=== PATIENT | male | born 1960 | race Caucasian/White ===

== ENCOUNTER → 2016-08-15 | Outpatient (CLI) | payer OTHER ==
[~2016-08-15] VITALS: Ht 160 cm; Wt 79.4 kg
[~2016-08-15] MED LIST: ATOR1TAB21 PO; BUPR300T34 PO; CETI10TA PO; CIPR-250 PO; CIPR500T89 PO; CLON0.5T PO; CRES20TA PO; CYMB60CA3 PO; ESCI10TA2 PO; GABA-283 PO; GABA300C2 PO; IBUP200C PO; JANU100T PO; LIDOCAINE 2% INJ 100 MG/5 ML SDV (FOR ANES.) As Ordered ONE; METF500T PO; MONT10TA2 PO; NORC5TAB PO; NS 1,000 ML IV SCH; OMEP10CASR PO; OMEP20CA3 PO; OXYC-208 PO; PROPOFOL 200 MG/20 ML VIAL As Ordered ONE; PYRI100T PO; SING5CHW PO; SINGULAIR PO; naproxen OR
--- NOTE | 2016-08-15 11:25 | ROOR ---
Patient Name: Herber Ruelas Procedure Date: 08/15/2016 11:12 AM Date of : 1960 Age: 56 Room: [facility] Gender: Male Note Status: Finalized Procedure: Upper GI endoscopy Indications: Heartburn Providers: Duane Mensah MD Referring MD: TRISTEN AGUILAR JR, MD Requesting Provider: Medicines: Monitored Anesthesia Care Complications: No immediate complications. Procedure: Pre-Anesthesia Assessment: - The heart rate, respiratory rate, oxygen saturations, blood pressure, adequacy of pulmonary ventilation, and response to care were monitored throughout the procedure. The Endoscope was introduced through the mouth, and advanced to the second part of duodenum. The upper GI endoscopy was accomplished without difficulty. The patient tolerated the procedure well. Findings: The Z-line was irregular and was found 40 cm from the incisors. No other significant abnormalities were identified in a careful examination of the stomach. The exam of the duodenum was otherwise normal. Impression: - Z-line irregular, 40 cm from the incisors. - No specimens collected. - The examination was otherwise normal. Recommendation: - Patient has a contact number available for emergencies. The signs and symptoms of potential delayed complications were discussed with the patient. Return to normal activities tomorrow. Written discharge instructions were provided to the patient. - Discharge patient to home. - Follow an antireflux regimen. - Continue present medications. - Return to referring physician. - The findings and recommendations were discussed with the patient's family. Duane Mensah MD Duane Mensah MD 08/15/2016 11:25:56 AM This report has been signed electronically. Number of Addenda: 0 Note Initiated On: 08/15/2016 11:12 AM Estimated Blood Loss: Estimated blood loss: none.
--- NOTE | 2016-08-15 11:52 | ROOR ---
Patient Name: Herber Ruelas Procedure Date: 08/15/2016 11:13 AM Date of : 1960 Age: 56 Room: [facility] Gender: Male Note Status: Finalized Procedure: Colonoscopy to Cecum + Hot/Cold Snare Polypectomy + Hemoclips. Indications: Change in bowel habits Providers: Duane Mensah MD Referring MD: Bridget Palomo MD, TRISTEN AGUILAR JR, MD Requesting Provider: Medicines: Monitored Anesthesia Care Complications: No immediate complications. Procedure: Pre-Anesthesia Assessment: - The heart rate, respiratory rate, oxygen saturations, blood pressure, adequacy of pulmonary ventilation, and response to care were monitored throughout the procedure. The Colonoscope was introduced through the anus and advanced to the cecum, identified by appendiceal orifice and ileocecal valve. The colonoscopy was performed without difficulty. The patient tolerated the procedure well. The quality of the bowel preparation was excellent. Findings: The perianal and digital rectal examinations were normal. Non-bleeding internal hemorrhoids were found during retroflexion. The hemorrhoids were small and Grade I (internal hemorrhoids that do not prolapse). A large polyp was found in the rectum. The polyp was sessile. The polyp was removed with a hot snare. Resection was complete, but the polyp tissue was not retrieved. To prevent bleeding after the polypectomy, two hemostatic clips were successfully placed (MR conditional). There was no bleeding at the end of the procedure. Two sessile polyps were found at 10 cm proximal to the anus. The polyps were small in size. These polyps were removed with a cold snare. Resection and retrieval were complete. A small polyp was found in the mid ascending colon. The polyp was sessile. The polyp was removed with a cold snare. Resection was complete, but the polyp tissue was not retrieved. The exam was otherwise without abnormality on direct and retroflexion views. Impression: - Non-bleeding internal hemorrhoids. - One large polyp in the rectum, removed with a hot snare. Complete resection. Polyp tissue not retrieved. Clips (MR conditional) were placed. - Two small polyps at 10 cm proximal to the anus, removed with a cold snare. Resected and retrieved. - One small polyp in the mid ascending colon, removed with a cold snare. Complete resection. Polyp tissue not retrieved. - The examination was otherwise normal on direct and retroflexion views. Recommendation: - Patient has a contact number available for emergencies. The signs and symptoms of potential delayed complications were discussed with the patient. Return to normal activities tomorrow. Written discharge instructions were provided to the patient. - High fiber diet. - Discharge patient to home. - Continue present medications. - Await pathology results. - Repeat colonoscopy in 3 years for surveillance based on pathology results. - Return to referring physician. - The findings and recommendations were discussed with the patient's family. Duane Mensah MD Duane Mensah MD 08/15/2016 11:52:18 AM This report has been signed electronically. Number of Addenda: 0 Note Initiated On: 08/15/2016 11:13 AM Estimated Blood Loss: Estimated blood loss: none.
[2016-08-15 12:15] VITALS: BP 142/87
== END | disposition home or self-care (01) ==
LOC: M OPP 10:18
PROVIDERS: ATTEND Internal Medicine Gastroenterology
DX: K64.0 First degree hemorrhoids (principal); K62.1 Rectal polyp; D12.2 Benign neoplasm of ascending colon; R12 Heartburn; K22.8 Other specified diseases of esophagus; E78.00 Pure hypercholesterolemia, unspecified; E11.9 Type 2 diabetes mellitus without complications; F33.9 Major depressive disorder, recurrent, unspecified; F41.9 Anxiety disorder, unspecified; G98.8 Other disorders of nervous system; F17.200 Nicotine dependence, unspecified, uncomplicated; F17.228 Nicotine dependence, chewing tobacco, with other nicotine-induced disorders; Z79.899 Other long term (current) drug therapy; Z79.84 Long term (current) use of oral hypoglycemic drugs; Z88.8 Allergy status to other drugs, medicaments and biological substances; Z88.0 Allergy status to penicillin; Z88.2 Allergy status to sulfonamides; Z91.018 Allergy to other foods

== ENCOUNTER → 2016-10-19 | Day surgery (SDC) | payer OTHER ==
[~2016-10-19] VITALS: Ht 160 cm; Wt 77.1 kg
[~2016-10-19] MED LIST changes: +ACETAMINOPHEN 325 MG TAB PO PRN; +ACETYLCHOLINE OPHTH SOLN 1% 2ML (MIOCHOL-E) As Ordered ONE; +BALANCED SALT IRRIGATION SOLUTION 500ML BAG (FOR OR EYE MACHINE) As Ordered ONE; +CYCLOPENTOLATE 2% OPHTH SOLN 2ML BTL OD ONE; +D5W/0.2% SODIUM CHLORIDE 250 ML IV ONE; +HEALON DUET (HEALON 10MG/ML 0.55ML & HEALON ENDOCOAT 30MG/ML 0.85ML) As Ordered ONE; +KETOROLAC 0.5% OPHTH SOLN OD ONE; +LIDOCAINE 1% SDV 5 ML VIAL As Ordered ONE; -LIDOCAINE 2% INJ 100 MG/5 ML SDV (FOR ANES.) As Ordered ONE; +LIDOCAINE 4% INJ 5 ML AMP OU ONE; +METF1000 PO; +MIDAZOLAM INJ 2 MG/2 ML VIAL (J2250) As Ordered ONE; +NORC1TAB4 PO; -NORC5TAB PO; -NS 1,000 ML IV SCH; +OFLOXACIN 0.3 % (OCUFLOX) OPTH SOL 5ML OD ONE; +PHENYLEPHRINE 2.5% OPHTH SOL 2ML OD ONE; +POVIDONE-IODINE 5% OPHTH PREP SOL 30ML As Ordered ONE; +PROPARACAINE 0.5% OPHTH SOL 15ML OD PRN; -PROPOFOL 200 MG/20 ML VIAL As Ordered ONE; +TRIMETHOBENZAMIDE 300 MG CAP PO PRN; +TROPICAMIDE 1% OPHTH SOLN 2ML OD ONE; +fentaNYL 100 MCG/2 ML INJECTION (J3010) As Ordered ONE
[2016-10-19 13:45] VITALS: BP 123/82
--- NOTE | 2016-10-20 12:36 | RO ---
DATE OF PROCEDURE: 10/19/2016 PREOPERATIVE DIAGNOSIS: Age-related nuclear cataract right eye. POSTOPERATIVE DIAGNOSIS: Age-related nuclear cataract right eye. PROCEDURE PERFORMED: Femtosecond cataract extraction with posterior chamber intraocular lens implantation right eye. Lens used was [id number], 22.0 diopter. SURGEON: Re Boyer MD TECHNOLOGY SERVICES MANAGER: ANESTHESIA: Local monitored anesthesia care (MAC). DESCRIPTION OF PROCEDURE: The patient was brought to the operating room and put under the femtosecond laser. A lid speculum was placed between the lids, and the laser was lowered on. Docking was achieved with good suction. The laser procedure was performed with no difficulty. The laser was then removed from the eye, and the lid speculum was removed. The laser was moved over to the operating microscope and prepped and draped in the usual fashion. A lid speculum was placed between the lids. The eye was fixated. The side port incision was opened up with a spatula. 1% non-preservative lidocaine was instilled; then, viscoelastic was instilled. The main incision was then opened with the spatula. The capsulorrhexis was removed from the eye with the Utrata forceps. The lens was then hydrodissected, and a phacoemulsification unit was used to make a groove in the nucleus and one meridian. The nucleus was cracked into four quadrants, and then each quadrant was removed with the phacoemulsification unit. Any remaining cortex was removed with the irrigation and aspiration (I and A) unit. The capsular bag was refilled with viscoelastic. A posterior chamber intraocular lens was placed in the capsular bag. The remaining viscoelastic was removed. The wound was hydrated. Miochol and cefuroxime were instilled. The wound was watertight. The patient tolerated the procedure well and went to the recovery room in stable condition. Edited: [facility] 10/20/2016 [id number]
== END | disposition home or self-care (01) ==
LOC: M SDC 11:25
PROVIDERS: ATTEND Ophthalmology
DX: H25.11 Age-related nuclear cataract, right eye (principal); I10 Essential (primary) hypertension; E11.42 Type 2 diabetes mellitus with diabetic polyneuropathy; F90.0 Attention-deficit hyperactivity disorder, predominantly inattentive type; G60.3 Idiopathic progressive neuropathy; F34.1 Dysthymic disorder; F41.9 Anxiety disorder, unspecified; K57.32 Diverticulitis of large intestine without perforation or abscess without bleeding; R29.898 Other symptoms and signs involving the musculoskeletal system; R06.02 Shortness of breath; N40.0 Benign prostatic hyperplasia without lower urinary tract symptoms; K21.9 Gastro-esophageal reflux disease without esophagitis; E78.00 Pure hypercholesterolemia, unspecified; F17.290 Nicotine dependence, other tobacco product, uncomplicated; J30.2 Other seasonal allergic rhinitis; Z88.0 Allergy status to penicillin; Z88.1 Allergy status to other antibiotic agents; Z88.2 Allergy status to sulfonamides; Z88.8 Allergy status to other drugs, medicaments and biological substances; Z91.018 Allergy to other foods; Z91.040 Latex allergy status; Z79.899 Other long term (current) drug therapy
CPT/HCPCS: 66984; J2250; J3010

== ENCOUNTER → 2016-10-26 | Day surgery (SDC) | payer OTHER ==
[~2016-10-26] VITALS: Ht 160 cm; Wt 77.1 kg
[~2016-10-26] MED LIST changes: -CYCLOPENTOLATE 2% OPHTH SOLN 2ML BTL OD ONE; +CYCLOPENTOLATE 2% OPHTH SOLN 2ML BTL OS ONE; -KETOROLAC 0.5% OPHTH SOLN OD ONE; +KETOROLAC 0.5% OPHTH SOLN OS ONE; -OFLOXACIN 0.3 % (OCUFLOX) OPTH SOL 5ML OD ONE; +OFLOXACIN 0.3 % (OCUFLOX) OPTH SOL 5ML OS ONE; -PHENYLEPHRINE 2.5% OPHTH SOL 2ML OD ONE; +PHENYLEPHRINE 2.5% OPHTH SOL 2ML OS ONE; -PROPARACAINE 0.5% OPHTH SOL 15ML OD PRN; +PROPARACAINE 0.5% OPHTH SOL 15ML OS PRN; -TROPICAMIDE 1% OPHTH SOLN 2ML OD ONE; +TROPICAMIDE 1% OPHTH SOLN 2ML OS ONE; -fentaNYL 100 MCG/2 ML INJECTION (J3010) As Ordered ONE
--- NOTE | 2016-10-26 10:00 | RO ---
DATE OF PROCEDURE: 10/26/2016 PREPROCEDURE DIAGNOSIS: Age related nuclear cataract left eye. POSTPROCEDURE DIAGNOSIS: Age related nuclear cataract left eye. PROCEDURE: Femtosecond cataract extraction with posterior chamber intraocular lens. The lens used was [id number], 21.5 diopter. SURGEON: Re Boyer MD DIGITAL SALES REPRESENTATIVE: ANESTHESIA: Topical sedation. DESCRIPTION OF PROCEDURE: The patient was brought to the operating room and put under the femtosecond laser. A lid speculum was placed between the lids, and the laser was lowered on. Docking was achieved with good suction. The laser procedure was performed with no difficulty. The laser was then removed from the eye, and the lid speculum was removed. The laser was moved over to the operating microscope and prepped and draped in the usual fashion. A lid speculum was placed between the lids. The eye was fixated. The side port incision was opened up with a spatula. 1% non-preservative lidocaine was instilled; then, viscoelastic was instilled. The main incision was then opened with the spatula. The capsulorrhexis was removed from the eye with the Utrata forceps. The lens was then hydrodissected, and a phacoemulsification unit was used to make a groove in the nucleus and one meridian. The nucleus was cracked into four quadrants, and then each quadrant was removed with the phacoemulsification unit. Any remaining cortex was removed with the irrigation and aspiration (I and A) unit. The capsular bag was refilled with viscoelastic. A posterior chamber intraocular lens was placed in the capsular bag. The remaining viscoelastic was removed. The wound was hydrated. Miochol and cefuroxime were instilled. The wound was watertight. The patient tolerated the procedure well and went to the recovery room in stable condition.
[2016-10-26 10:20] VITALS: BP 174/99
== END | disposition home or self-care (01) ==
LOC: M SDC 08:25
PROVIDERS: ATTEND Ophthalmology
DX: H25.12 Age-related nuclear cataract, left eye (principal); K21.9 Gastro-esophageal reflux disease without esophagitis; N40.0 Benign prostatic hyperplasia without lower urinary tract symptoms; F17.210 Nicotine dependence, cigarettes, uncomplicated; E78.5 Hyperlipidemia, unspecified; F32.9 Major depressive disorder, single episode, unspecified; F41.9 Anxiety disorder, unspecified; Z79.899 Other long term (current) drug therapy; Z88.2 Allergy status to sulfonamides; Z91.040 Latex allergy status; Z88.0 Allergy status to penicillin
CPT/HCPCS: 66984; J2250

== ENCOUNTER → 2017-09-06 | Outpatient (REF) | payer OTHER ==
[2017-09-06 19:15] LABS: GAMMA GLUTAMYLTRANSPEPTIDASE 252 U/L (15-85)
[2017-09-08 11:25] LABS: HEPATITIS B SURFACE ANTIGEN NEGATIVE (NEGATIVE)
[2017-09-08 11:38] LABS: HEPATITIS C VIRUS ABY INDEX 0.1 INDEX (<0.8)
[2017-09-08 11:39] LABS: HEPATITIS B CORE ANTIBODY IGM NEGATIVE (NEGATIVE)
== END ==
LOC: M LAB REF 17:39
DX: C20 Malignant neoplasm of rectum (principal)
CPT/HCPCS: 86803

== ENCOUNTER → 2018-05-07 | Outpatient (CLI) | payer MEDICARE | LOC: M PAIN 15:15 | DX: M51.16 Intervertebral disc disorders with radiculopathy, lumbar region (principal); M96.1 Postlaminectomy syndrome, not elsewhere classified; E11.40 Type 2 diabetes mellitus with diabetic neuropathy, unspecified; I10 Essential (primary) hypertension; F32.9 Major depressive disorder, single episode, unspecified; K21.9 Gastro-esophageal reflux disease without esophagitis; E78.00 Pure hypercholesterolemia, unspecified; J30.89 Other allergic rhinitis; F17.210 Nicotine dependence, cigarettes, uncomplicated; Z79.84 Long term (current) use of oral hypoglycemic drugs; Z79.899 Other long term (current) drug therapy; Z88.1 Allergy status to other antibiotic agents; Z88.2 Allergy status to sulfonamides; Z88.8 Allergy status to other drugs, medicaments and biological substances; Z91.018 Allergy to other foods; Z91.040 Latex allergy status | CPT/HCPCS: G0463 ==

== ENCOUNTER → 2018-05-08 | Outpatient (CLI) | payer MEDICARE ==
[~2018-05-08] MED LIST changes: -ACETAMINOPHEN 325 MG TAB PO PRN; -ACETYLCHOLINE OPHTH SOLN 1% 2ML (MIOCHOL-E) As Ordered ONE; -BALANCED SALT IRRIGATION SOLUTION 500ML BAG (FOR OR EYE MACHINE) As Ordered ONE; -CLON0.5T PO; +CLON0.5T8 PO; -CYCLOPENTOLATE 2% OPHTH SOLN 2ML BTL OS ONE; -D5W/0.2% SODIUM CHLORIDE 250 ML IV ONE; -GABA-283 PO; +GABA-845 PO; -HEALON DUET (HEALON 10MG/ML 0.55ML & HEALON ENDOCOAT 30MG/ML 0.85ML) As Ordered ONE; +ISOVUE-M 300 61% 15ML VIAL (Q9967) As Ordered ONE; -KETOROLAC 0.5% OPHTH SOLN OS ONE; -LIDOCAINE 1% SDV 5 ML VIAL As Ordered ONE; +LIDOCAINE 1% SDV INJ 30 ML VIAL As Ordered ONE; -LIDOCAINE 4% INJ 5 ML AMP OU ONE; -METF1000 PO; +METF10004 PO; +METF500T13 PO; -MIDAZOLAM INJ 2 MG/2 ML VIAL (J2250) As Ordered ONE; -OFLOXACIN 0.3 % (OCUFLOX) OPTH SOL 5ML OS ONE; -PHENYLEPHRINE 2.5% OPHTH SOL 2ML OS ONE; -POVIDONE-IODINE 5% OPHTH PREP SOL 30ML As Ordered ONE; -PROPARACAINE 0.5% OPHTH SOL 15ML OS PRN; -TRIMETHOBENZAMIDE 300 MG CAP PO PRN; -TROPICAMIDE 1% OPHTH SOLN 2ML OS ONE; +diazePAM 5 MG TAB As Ordered ONE; +methylPREDNISolone SUSP 40 MG/ML (DEPO-medrol) VIAL (J1030) As Ordered ONE; +oxyCODONE 5MG TAB As Ordered ONE
--- NOTE | 2018-05-08 17:06 | REP ---
Partial lumbar spine series: Three views . History: Injection procedure for pain. 23 seconds of fluoroscopy time is reported. Findings: A sequence of three fluoroscopically obtained last image hold procedural spot radiographs of the lumbar spine document needle position and contrast injection associated with injection procedure. Electronically Signed by Buster Boykin MD 05/08/2018 04:57 P
--- NOTE | 2018-05-23 00:46 | ECWPNPC ---
PATIENT NAME: KALYAN SOLER : 1960 GENDER: MALE VISIT DATE: 05/08/2018 DISCHARGE DATE: 05/08/18 1507 VISIT LOCKED DATE TIME: PHYSICIAN: NIA LOBO MD RESOURCE: NIA LOBO MD REASON FOR APPOINTMENT 1. LESI HISTORY OF PRESENT ILLNESS DEPRESSION SCREENING: PHQ-2 IN LAST TWO WEEKS HAVE YOU BEEN BOTHERED BY LITTLE INTEREST OR PLEASURE IN DOING THINGSNO FEELING DOWN, DEPRESSED, OR HOPELESSNO HISTORY OF PRESENT ILLNESS: PAIN THE PATIENT DESCRIBES THE PAIN... FALL RISK SCREENING: SCREENING :NO FALLS IN THE PAST YEAR CURRENT MEDICATIONS TAKING CRESTOR 20 MG TABLET 1 TABLET ORALLY ONCE A DAY, NOTES: 05/07 2130 TAKING PRILOSEC 10 MG CAPSULE DELAYED RELEASE 2 CAPSULE ORALLY ONCE A DAY, NOTES: 05/08 930 TAKING METFORMIN HCL 500 MG TABLET 1 TABLET WITH MEALS ORALLY 1 TAB IN A.M. AND 2 TABS IN P.M., NOTES: 05/07 2130 TAKING BUPROPION HCL 200 MG TABLET EXTENDED RELEASE ORALLY ONCE DAILY, NOTES: 05/08 930 TAKING CLONAZEPAM 0.5 MG TABLET 1/2 TAB ORALLY TWICE A DAY, NOTES: 05/08 930 TAKING TYLENOL 325 MG CAPSULE 1 CAPSULE NEEDED ORALLY EVERY 4 HRS, NOTES: 2 DAYS AGO TAKING VITAMIN D-3 1000 UNIT CAPSULE 1 CAPSULE ORALLY ONCE A DAY, NOTES: NONE RECENT TAKING VICODIN 5-300 MG TABLET 1 TABLET NEEDED ORALLY EVERY 6 HRS, NOTES: NONE RECENT TAKING GABAPENTIN 600 MG TABLET 1 CAPSULE ORALLY THREE TIMES A DAY, NOTES: 05/08 930 TAKING ESCITALOPRAM OXALATE 10 MG TABLET 1 TABLET ORALLY ONCE A DAY, NOTES: 05/08 930 NOT-TAKING IBUPROFEN 800 MG TABLET 1 TABLET ORALLY WITH FOOD THREE TIMES A DAY NEEDED FOR PAIN NOT-TAKING SINGULAIR 10 MG TABLET 1 TABLET IN THE EVENING ORALLY ONCE A DAY NOT-TAKING JANUVIA 100 MG TABLET 1 TABLET ORALLY ONCE A DAY, NOTES: 02-28- AM NOT-TAKING CYCLOBENZAPRINE HCL 10 MG TABLET 1 TABLET NEEDED ORALLY THREE TIMES A DAY NOT-TAKING MONTELUKAST SODIUM 10 MG TABLET 1 TABLET ORALLY ONCE A DAY NOT-TAKING CYMBALTA 20 MG CAPSULE DELAYED RELEASE PARTICLES 1 CAPSULE ORALLY ONCE A DAY NOT-TAKING TIZANIDINE HCL 2 MG TABLET 1 TO 2 TABLETS ORALLY AT NIGHT NEEDED FOR SPASMS AND PAIN MEDICATION LIST REVIEWED AND RECONCILED WITH THE PATIENT PAST MEDICAL HISTORY ACID REFLUX DIABETES MALLITUS DEPRESSION SEASONAL ALLERGIES NEUROPATHY HIGH CHOLESTEROL HIGH BLOOD PRESSURE FOOD POISONING ALLERGIES SULFA (FOR ALLERGY USE ONLY): VOMITING/ RASH: SIDE EFFECTS AUGMENTIN: VOMITING/RASH: SIDE EFFECTS WHEAT/FLOUR: DISORIENTATION/ SWELLING/INABILITY TO BREATH: ALLERGY CYMBALTA: LACK OF THERAPEUTIC EFFECT LATEX: ITCHY PATCHES: ALLERGY SURGICAL HISTORY INTESTINAL SURGERY DURING CHILDHOOD CARPAL TUNNEL-ELVA BACK SURGERY 07/2015 FAMILY HISTORY FATHER: , DIAGNOSED WITH HEART DISEASE MOTHER: , DIAGNOSED WITH HYPERTENSION, CANCER SIBLINGS: ALIVE, DIAGNOSED WITH DIABETES SON(S): ALIVE DAUGHTER(S): ALIVE 3DAUGHTER(S) . MOM HAD MULTIPLE CANCERS1 DAUGHTER IS DIABETIC. SOCIAL HISTORY GENERAL: TOBACCO USE ARE YOU A:CURRENT SMOKER ARE YOU INTERESTED IN QUITTING?THINKING ABOUT QUITTING PT IS NOW SMOKING 1 OR 2 ADAY COUNSELED THE PATIENT ON SMOKING CESSATION, EDUCATION [id number]/2018 HOW MANY CIGARETTES A DAY DO YOU SMOKE?5 OR LESS PATIENT COUNSELED ON THE DANGERS OF TOBACCO USE AND URGED TO QUIT:05/07/2018 ALCOHOL SCREENING DID YOU HAVE A DRINK CONTAINING ALCOHOL IN THE PAST YEAR?YES HOW OFTEN DID YOU HAVE A DRINK CONTAINING ALCOHOL IN THE PAST YEAR?MONTHLY OR LESS (1 POINT) POINTS1 INTERPRETATIONNEGATIVE RECREATIONAL DRUG USE DRUG USE?NO JEWISH [id number] DENOMINATIONAL LANGUAGE LANGUAGES SPOKEN:SUDANESE EDUCATION LEVEL OF EDUCATION:NOT FINISHED HIGH SCHOOL LEARNING BARRIERS / SPECIAL NEEDS EMOTIONAL BARRIERS? PT VERBALIZES HE HAS BEEEN VERY DEPRESSED LATELY SPECIAL DEVICES?YES PT IS USING A CANE DOMESTIC VIOLENCE DO YOU FEEL SAFE IN YOUR ENVIRONMENT?YES DIET: DO YOU FEEL SAFE IN YOUR ENVIRONMENT? YES JJPT IS DISABLES. EXERCISE: DISABLES, NO CONCENTRATED SWEETS.. IMMUNIZATION PROGRAM DO YOU FEEL SAFE IN YOUR ENVIRONMENT? YES JJPT IS DISABLES, NO CONCENTRATED SWEETS., NO REGULAR EXERCISE, , SPOUSE. HOUSING: PFS REFERRAL NEEDED? NO, CLERGY REFERRAL NEEDED? NO, PUBLIC HEALTH REFERRAL NEEDED? NO, WAS THE PROVIDER NOTIFIED OF ANY PERTINENT INFO? NO, HAS THE PATIENT BEEN EDUCATED REGARDING HIS/HER PLAN OF CARE? YES, HAS THE PATIENT BEEN EDUCATED REGARDING PAIN, THE RISK FOR PAIN, THE IMPORTANCE OF EFFECTIVE PAIN MANAGEMENT, AND THE PAIN ASSESSMENT PROCESS? YES. ADVANCE DIRECTIVE ADVANCE DIRECTIVE DISCUSSED WITH PATIENT:YES 05/08/18 STATES HE HAS A HCP-- [facility] [phone] ASKED TO BRING A COPY IN FOR OUR FILES HOSPITALIZATION/MAJOR DIAGNOSTIC PROCEDURE SURGERY RELATED ADHENSION INTESTINAL REVIEW OF SYSTEMS REVIEWED BY: PROVIDER: . CONSTITUTIONAL: ANY CHANGE IN YOUR MEDICAL CONDITION? YES, FOOD POISONING LAST WEEK . CHILLS NO . FEVER NO . INFECTION: DO YOU HAVE NEW INFECTIONS? NO . DO YOU HAVE HISTORY OF MRSA? NO . MUSCULOSKELETAL: ANY NEW PATTERNS OF PAIN OR NUMBNESS? PATIENT STATES PAIN 10/10 AT THIS TIME TO LOX BACK AND DOWN RIGHT LEG . GASTROENTEROLOGY: ANY NEW CHANGE IN BOWEL CONTROL? NO . GENITOURINARY: ANY NEW CHANGE IN BLADDER CONTROL? NO . IS THERE A CHANCE YOU COULD BE ? NO . HEMATOLOGY/LYMPH: DO YOU TAKE ANY BLOOD THINNERS? (FOR EXAMPLE- COUMADIN, PLAVIX, AGGRENOX, PLATEL, PRADAXA, OR XARELTO) NO . WHEN WAS YOUR LAST DOSE? DATE: TIME: . NEUROLOGY: HAVE YOU FALLEN IN THE PAST 6 MONTHS? YES, STATES DISCUSSED AT LAST APPOINTMENT . ANY NEW EXTREMITY NUMBNESS OR WEAKNESS? YES, STATES NUMBNESS TO RIGHT LEG AND LEFT HAND . CARDIOLOGY: DO YOU HAVE A PACEMAKER OR DEFIBRILLATOR? NO . RESPIRATORY: HAVE YOU BEEN SICK IN THE PAST WEEK? NO . FEVER NO . FLU LIKE SYMPTOMS? NO . COUGH NO . INTEGUMENTARY: DO YOU HAVE ANY RASHES OR OPEN SORES? NO . ALLERGIC/IMMUNO: ARE YOU ALLERGIC TO SHELLFISH OR IV DYE? NO . ANY NEW ALLERGIES? NO . PSYCHIATRIC: DO YOU HAVE THOUGHTS OF HURTING YOURSELF OR SOMEONE ELSE? NO . ARE YOU ABUSED, NEGLECTED, OR IN AN UNSAFE ENVIRONMENT? NO . ENDOCRINOLOGY: ARE YOU DIABETIC? YES, FSBS @ 0930 WAS 261, @[address] LOBO AWARE AND HE WOULD LIKE TO DISCUSS IT WITH DR. AGUILAR PRIOR TO PROCEEDING. VISHNU GABRIEL RN SPOKE TO DR. AGUILAR AND RECEIVED APPROVAL FOR THE PROCEDURE TODAY DESPITE ELEVATED BLOOD SUGAR . OTHER: DO YOU NEED ANY PRESCRIPTIONS? NO . IF YES, PLEASE LIST: ____ . ANY NEW PROBLEMS WITH YOUR MEDICATIONS? NO . WHEN DID YOU LAST EAT? ____05/07/18 1900 . WHEN DID YOU LAST DRINK? ____05/08/18 1000 . WHAT DID YOU LAST DRINK? ____WATER . NAME OF PERSON DRIVING YOU HOME? ____LAI SOLER . DO YOU HAVE ANY OTHER QUESTIONS OR CONCERNS FLU VACCINE IN MARCH . VITAL SIGNS WT 177 LBS, HT 63 IN, BMI 31.35 INDEX, BP 137/91 MM HG, HR 84 /MIN, RR 16 /MIN, TEMP 96.4 F, OXYGEN SAT % 95%, BLOOD GLUCOSE LEVEL 246, SAFE IN ENV? (Y/N) Y, NA INITIALS AW 1156, REVIEWED BY: AD. ASSESSMENTS SPINAL STENOSIS OF LUMBOSACRAL REGION - M48.07 (PRIMARY) INTERVERTEBRAL DISC DISORDER WITH RADICULOPATHY OF LUMBOSACRAL REGION - M51.17 PROCEDURES PRE PROCEDURE DIAGNOSIS LUMBOSACRAL DISC DISORDER WITH RADICULOPATHY, LUMBOSACRAL SPINAL STENOSIS POST PROCEDURE DIAGNOSIS LUMBOSACRAL DISC DISORDER WITH RADICULOPATHY , LUMBOSACRAL SPINAL STENOSIS PROCEDURE LUMBAR EPIDURAL STEROID INJECTION UNDER FLUOROSCOPIC GUIDANCE SURGEON DR. NIA LOBO METAL CASKET ASSEMBLER NONE ANESTHESIA LOCAL PRE PROCEDURE NOTE THE PATIENT HAS A HISTORY OF CHRONIC LOW BACK PAIN. I EVALUATE THE PATIENT AND REVIEWED THE CHART. I WENT OVER THE RISKS, ALTERNATIVES, AND BENEFITS ASSOCIATED WITH THIS PROCEDURE. THE PATIENT WOULD LIKE TO PROCEED AND GIVE CONSENT TO PERFORMED THE PROCEDURE. THE PATIENT DENIES UNEXPLAINABLE WEIGHT LOSS, FEVER, CHILLS, OR NEW CHANGES IN URINARY OR BOWEL CONTROL. DESCRIPTION OF PROCEDURE THE PATIENT WAS BROUGHT TO THE PROCEDURE ROOM AND PLACED IN THE PRONE POSITION. THE LUMBOSACRAL AREA WAS CLEANED WITH BETADINE SOLUTION AND DRAPED ASEPTICALLY. THE PROCEDURE WAS DONE UNDER STERILE CONDITIONS. I CHECKED LATERALITY AND THE LEVEL WHERE THE PROCEDURE WAS GOING TO BE PERFORMED WITH THE PATIENT AND THE SUPPORTING STAFF AT THE MOMENT OF THE TIME OUT IN THE PROCEDURE ROOM. UNDER FLUOROSCOPIC GUIDANCE, THE TARGET POINT WAS SELECTED AT THE INTERLAMINAR LEVEL OF L5-S1. LIDOCAINE WAS USED TO NUMB THE SKIN AND THE SUBCUTANEOUS TISSUE BELOW IT. EPIDURAL TUOHY NEEDLE, 17-GAUGE, WAS ADVANCED UNDER FLUOROSCOPIC GUIDANCE AND FOLLOWING PATIENT FEEDBACK UNTIL THE EPIDURAL SPACE WAS REACHED, 7 CM DEEP INTO THE SKIN BY THE LOSS OF RESISTANCE TECHNIQUE. ISOVUE M DYE 30%, 0.25 ML, WAS INJECTED SHOWING ADEQUATE SPREAD OF THE DYE. THEN, A SOLUTION OF 3 ML OF NORMAL SALINE WITH DEPO-MEDROL 60 MG WAS INJECTED SLOWLY FOLLOWING PATIENT FEEDBACK. THERE WAS NO EVIDENCE OF BLOOD, PARESTHESIA OR CEREBROSPINAL FLUID DURING THE PROCEDURE. THE PATIENT WAS SENT TO THE RECOVERY ROOM. THE PATIENT WAS MOVING THE EXTREMITIES AND DOING WELL. THERE WAS NO COMPLICATION DURING THE PROCEDURE. FLUOROSCOPY TIME WAS 23 SECONDS. POST PROCEDURE NOTE THE PATIENT WILL BE SEEN IN A FOLLOW UP IN THE NEXT FEW WEEKS. INSTRUCTIONS WERE GIVEN, QUESTIONS WERE ANSWERED, AND THE PATIENT EXPRESSED UNDERSTANDING AND AGREES WITH THE PLAN. I, PANDA BETTS, DOCUMENTED THE ABOVE INFORMATION ACTING A SCRIBE FOR DR. LOBO. I HAVE REVIEWED THE ABOVE DOCUMENT, WRITTEN BY PANDA HALLIBCyndie AND I VERIFY THAT IT IS ACCURATE. DIAGNOSTIC IMAGING [facility] FLUORO GUIDE SPINE INJECTION (PAIN)[id number] PROCEDURE CODES 6045F RADXPS IN END [id number] PXD [id number] LUMBAR/SACRAL W/ IMAGING DISPOSITION & COMMUNICATION FOLLOW UP 2 WEEKS ELECTRONICALLY SIGNED BY NIA LOBO MD, MD ON 05/22/2018 AT 05:00 PM EST DISCLAIMER : THIS IS A VISIT SUMMARY EXTRACTED FROM THE [employer] CHART. IT IS NOT A COPY OF THE [employer] PROGRESS NOTE. NORMA
== END ==
LOC: M PAIN 11:45
PROVIDERS: ATTEND Anesthesiology
DX: G89.29 Other chronic pain (principal); M48.07 Spinal stenosis, lumbosacral region; M51.17 Intervertebral disc disorders with radiculopathy, lumbosacral region; E11.40 Type 2 diabetes mellitus with diabetic neuropathy, unspecified; I10 Essential (primary) hypertension; K21.9 Gastro-esophageal reflux disease without esophagitis; F32.9 Major depressive disorder, single episode, unspecified; J30.2 Other seasonal allergic rhinitis; E78.00 Pure hypercholesterolemia, unspecified; F17.210 Nicotine dependence, cigarettes, uncomplicated; Z79.84 Long term (current) use of oral hypoglycemic drugs; Z79.899 Other long term (current) drug therapy; Z88.1 Allergy status to other antibiotic agents; Z88.2 Allergy status to sulfonamides; Z91.018 Allergy to other foods; Z91.040 Latex allergy status
CPT/HCPCS: 62323; J1030; Q9967

== ENCOUNTER 2018-09-10 10:53 | Day surgery (SDC) | payer MEDICARE ==
[~2018-09-10] VITALS: Ht 160 cm; Wt 82.6 kg
[~2018-09-10 10:53] MED LIST changes: -CRES20TA PO; +CRES20TA2 PO; +CYCL10TA; +GLIP5TAB8; -ISOVUE-M 300 61% 15ML VIAL (Q9967) As Ordered ONE; -LIDOCAINE 1% SDV INJ 30 ML VIAL As Ordered ONE; +LIDOCAINE 2% INJ 100 MG/5 ML SDV (FOR ANES.) As Ordered ONE; +NEUR300C PO; -NORC1TAB4 PO; +NORC1TAB7 PO; +NS 1,000 ML IV ONE; +PROPOFOL 200 MG/20 ML VIAL As Ordered ONE; -diazePAM 5 MG TAB As Ordered ONE; -methylPREDNISolone SUSP 40 MG/ML (DEPO-medrol) VIAL (J1030) As Ordered ONE; -oxyCODONE 5MG TAB As Ordered ONE
--- NOTE | 2018-09-10 13:03 | ROOR ---
Patient Name: Herber Ruelas Procedure Date: 09/10/2018 12:48 PM Date of : 1960 Age: 58 Room: [facility] Gender: Male Note Status: Finalized Procedure: Upper Endoscopy + Biopsies Indications: Heartburn, Exclusion of Christopher's esophagus Providers: Duane Mensah MD Referring MD: TRISTEN AGUILAR JR, MD Requesting Provider: Medicines: Monitored Anesthesia Care Complications: No immediate complications. Procedure: Pre-Anesthesia Assessment: - The heart rate, respiratory rate, oxygen saturations, blood pressure, adequacy of pulmonary ventilation, and response to care were monitored throughout the procedure. The Endoscope was introduced through the mouth, and advanced to the second part of duodenum. The upper GI endoscopy was accomplished without difficulty. The patient tolerated the procedure well. Findings: The Z-line was regular and was found 40 cm from the incisors. Multiple biopsies were obtained with cold forceps for evaluation to rule out Christopher's Esophagus randomly at the gastroesophageal junction. No other significant abnormalities were identified in a careful examination of the stomach. The exam of the duodenum was otherwise normal. Impression: - Z-line regular, 40 cm from the incisors. - Multiple biopsies were obtained at the gastroesophageal junction. - The examination was otherwise normal. Recommendation: - Patient has a contact number available for emergencies. The signs and symptoms of potential delayed complications were discussed with the patient. Return to normal activities tomorrow. Written discharge instructions were provided to the patient. - High fiber diet. - Discharge patient to home. - Follow an antireflux regimen. - Continue present medications. - Await pathology results. - Telephone GI clinic for pathology results in 1 week. - Return to referring physician. - The findings and recommendations were discussed with the patient's family. Duane Mensah MD Daune Mensah MD 09/10/2018 1:03:51 PM Electronically signed by Duane Mensah MD Number of Addenda: 0 Note Initiated On: 09/10/2018 12:48 PM Estimated Blood Loss: Estimated blood loss: none.
--- NOTE | 2018-09-10 13:19 | ROOR ---
Patient Name: Herber Ruelas Procedure Date: 09/10/2018 12:48 PM Date of : 1960 Age: 58 Room: [facility] Gender: Male Note Status: Finalized Procedure: Total Colonoscopy to the Cecum + Cold Snare Polypectomy Indications: Personal history of malignant rectal neoplasm Providers: Duane Mensah MD Referring MD: TRISTEN AGUILAR JR, MD Requesting Provider: Medicines: Monitored Anesthesia Care Complications: No immediate complications. Procedure: Pre-Anesthesia Assessment: - The heart rate, respiratory rate, oxygen saturations, blood pressure, adequacy of pulmonary ventilation, and response to care were monitored throughout the procedure. The Colonoscope was introduced through the anus and advanced to the cecum, identified by appendiceal orifice and ileocecal valve. The colonoscopy was performed without difficulty. The patient tolerated the procedure well. The quality of the bowel preparation was excellent. Findings: The perianal and digital rectal examinations were normal. Non-bleeding internal hemorrhoids were found during retroflexion. The hemorrhoids were small and Grade I (internal hemorrhoids that do not prolapse). There was evidence of a prior end-to-end colo-colonic anastomosis at 20 cm proximal to the anus. This was patent and was characterized by healthy appearing mucosa. The anastomosis was traversed. Three sessile polyps were found in the transverse colon. The polyps were small in size. These polyps were removed with a cold snare. Resection and retrieval were complete. The exam was otherwise without abnormality on direct and retroflexion views. Impression: - Non-bleeding internal hemorrhoids. - Patent end-to-end colo-colonic anastomosis, characterized by healthy appearing mucosa. - Three small polyps in the transverse colon, removed with a cold snare. Resected and retrieved. - The examination was otherwise normal on direct and retroflexion views. - The exam was otherwise normal to the cecum. Recommendation: - Patient has a contact number available for emergencies. The signs and symptoms of potential delayed complications were discussed with the patient. Return to normal activities tomorrow. Written discharge instructions were provided to the patient. - High fiber diet. - Discharge patient to home. - Continue present medications. - Await pathology results. - Telephone GI clinic for pathology results in 1 week. - Repeat colonoscopy in 3 years for surveillance based on pathology results. - Return to referring physician. - The findings and recommendations were discussed with the patient's family. Duane Mensah MD Duane Mensah MD 09/10/2018 1:18:59 PM Electronically signed by Duane Mensah MD Number of Addenda: 0 Note Initiated On: 09/10/2018 12:48 PM Estimated Blood Loss: Estimated blood loss: none.
[2018-09-10 13:50] VITALS: BP 128/86
== END 2018-09-10 14:10 | disposition home or self-care (01) ==
LOC: M OPP 10:53
PROVIDERS: ATTEND Internal Medicine Gastroenterology
DX: D12.3 Benign neoplasm of transverse colon (principal); K64.0 First degree hemorrhoids; Z85.040 Personal history of malignant carcinoid tumor of rectum; Z98.0 Intestinal bypass and anastomosis status; K29.70 Gastritis, unspecified, without bleeding; R12 Heartburn

== ENCOUNTER → 2018-10-05 | Outpatient (CLI) | payer MEDICARE ==
[~2018-10-05] MED LIST changes: -LIDOCAINE 2% INJ 100 MG/5 ML SDV (FOR ANES.) As Ordered ONE; -NS 1,000 ML IV ONE; -PROPOFOL 200 MG/20 ML VIAL As Ordered ONE
--- NOTE | 2018-10-22 00:47 | ECWPNPC ---
PATIENT NAME: KALYAN SOLER : 1960 GENDER: MALE VISIT DATE: 10/05/2018 DISCHARGE DATE: 10/05/18 1227 VISIT LOCKED DATE TIME: PHYSICIAN: NIA LOBO MD RESOURCE: NIA LOBO MD REASON FOR APPOINTMENT 1. POST PROC HISTORY OF PRESENT ILLNESS HISTORY OF PRESENT ILLNESS: PAIN THE PATIENT DESCRIBES THE PAIN... 58 YEAR OLD MALE PATIENT WITH A HISTORY OF CHRONIC LOW BACK PAIN. THE PATIENT DESCRIBES THE PAIN ACHING, SHARP, STABBING, SHOOTING, AND CONTINUOUS WITH A PAIN SCORE OF 8-10/10 DEPENDING ON PHYSICAL ACTIVITY. THE PATIENT SAYS HIS PAIN STARTS IN HIS LOW BACK AND RADIATES DOWN HIS RIGHT LEG. THE PATIENT RECEIVE A LUMBAR EPIDURAL STEROID INJECTION ON 05/08/2018 AND REPORTS HAVING GOOD PAIN RELIEF FOR OVER 3 MONTHS. THE PATIENT SAYS HE ALSO HAS HAD SOME NECK PAIN RECENTLY. PATIENT DENIES UNEXPLAINABLE WEIGHT LOSS, FEVER, CHILLS, NEW CHANGES ON HIS URINARY OR BOWEL CONTROL. FALL RISK SCREENING: SCREENING :NO FALLS REPORTED IN THE LAST YEAR CURRENT MEDICATIONS TAKING MONTELUKAST SODIUM 10 MG TABLET 1 TABLET ORALLY ONCE A DAY TAKING CRESTOR 20 MG TABLET 1 TABLET ORALLY ONCE A DAY, NOTES: 05/07 2130 TAKING PRILOSEC 10 MG CAPSULE DELAYED RELEASE 2 CAPSULE ORALLY ONCE A DAY, NOTES: 05/08 930 TAKING METFORMIN HCL 500 MG TABLET 1 TABLET WITH MEALS ORALLY 1 TAB IN A.M. AND 2 TABS IN P.M., NOTES: 05/07 2130 TAKING BUPROPION HCL 200 MG TABLET EXTENDED RELEASE ORALLY ONCE DAILY, NOTES: 05/08 930 TAKING CLONAZEPAM 0.5 MG TABLET TAB ORALLY TWICE A DAY, NOTES: 05/08 930 TAKING TYLENOL 325 MG CAPSULE 1 CAPSULE NEEDED ORALLY EVERY 4 HRS, NOTES: 2 DAYS AGO TAKING GABAPENTIN 600 MG TABLET 1 CAPSULE ORALLY THREE TIMES A DAY, NOTES: 05/08 930 TAKING ESCITALOPRAM OXALATE 10 MG TABLET 1 TABLET ORALLY ONCE A DAY, NOTES: 05/08 930 NOT-TAKING IBUPROFEN 800 MG TABLET 1 TABLET ORALLY WITH FOOD THREE TIMES A DAY NEEDED FOR PAIN NOT-TAKING SINGULAIR 10 MG TABLET 1 TABLET IN THE EVENING ORALLY ONCE A DAY NOT-TAKING JANUVIA 100 MG TABLET 1 TABLET ORALLY ONCE A DAY, NOTES: 02-28- AM NOT-TAKING CYMBALTA 20 MG CAPSULE DELAYED RELEASE PARTICLES 1 CAPSULE ORALLY ONCE A DAY NOT-TAKING TIZANIDINE HCL 2 MG TABLET 1 TO 2 TABLETS ORALLY AT NIGHT NEEDED FOR SPASMS AND PAIN NOT-TAKING VITAMIN D-3 1000 UNIT CAPSULE 1 CAPSULE ORALLY ONCE A DAY, NOTES: NONE RECENT NOT-TAKING VICODIN 5-300 MG TABLET 1 TABLET NEEDED ORALLY EVERY 6 HRS, NOTES: NONE RECENT UNKNOWN CYCLOBENZAPRINE HCL 10 MG TABLET 1 TABLET NEEDED ORALLY THREE TIMES A DAY MEDICATION LIST REVIEWED AND RECONCILED WITH THE PATIENT PAST MEDICAL HISTORY ACID REFLUX DIABETES MALLITUS DEPRESSION SEASONAL ALLERGIES NEUROPATHY HIGH CHOLESTEROL HIGH BLOOD PRESSURE FOOD POISONING ALLERGIES SULFA (FOR ALLERGY USE ONLY): VOMITING/ RASH - SIDE EFFECTS AUGMENTIN: VOMITING/RASH - SIDE EFFECTS WHEAT/FLOUR: DISORIENTATION/ SWELLING/INABILITY TO BREATH - ALLERGY CYMBALTA: LACK OF THERAPEUTIC EFFECT LATEX: ITCHY PATCHES - ALLERGY SURGICAL HISTORY INTESTINAL SURGERY DURING CHILDHOOD CARPAL TUNNEL-ELVA BACK SURGERY 07/2015 COLONOSCOPY 09/10/2018 FAMILY HISTORY FATHER: , DIAGNOSED WITH HEART DISEASE MOTHER: , HYPERTENSION, CANCER SIBLINGS: ALIVE, DIABETES SON(S): ALIVE DAUGHTER(S): ALIVE 3DAUGHTER(S) . MOM HAD MULTIPLE CANCERS\N1 DAUGHTER IS DIABETIC. SOCIAL HISTORY GENERAL: TOBACCO USE ARE YOU A:CURRENT SMOKER ARE YOU INTERESTED IN QUITTING?THINKING ABOUT QUITTING PT IS NOW SMOKING 1 OR 2 ADAY PREVIOUS QUIT ATTEMPTS?YES, WITHIN THE LAST 6 MONTHS. COUNSELED THE PATIENT ON SMOKING CESSATION, EDUCATION [id number]/26/2019 HOW MANY CIGARETTES A DAY DO YOU SMOKE?5 OR LESS PATIENT COUNSELED ON THE DANGERS OF TOBACCO USE AND URGED TO QUIT:10/05/2018 IMMUNIZATION PROGRAM DO YOU FEEL SAFE IN YOUR ENVIRONMENT? YES JJPT IS DISABLES, NO CONCENTRATED SWEETS., NO REGULAR EXERCISE, , SPOUSE. HOUSING: PFS REFERRAL NEEDED? NO, CLERGY REFERRAL NEEDED? NO, PUBLIC HEALTH REFERRAL NEEDED? NO, WAS THE PROVIDER NOTIFIED OF ANY PERTINENT INFO? NO, HAS THE PATIENT BEEN EDUCATED REGARDING HIS/HER PLAN OF CARE? YES, HAS THE PATIENT BEEN EDUCATED REGARDING PAIN, THE RISK FOR PAIN, THE IMPORTANCE OF EFFECTIVE PAIN MANAGEMENT, AND THE PAIN ASSESSMENT PROCESS? YES. EDUCATION LEVEL OF EDUCATION:NOT FINISHED HIGH SCHOOL DIET: DO YOU FEEL SAFE IN YOUR ENVIRONMENT? YES JJPT IS DISABLES. LANGUAGE LANGUAGES SPOKEN:MALAYSIAN DOMESTIC VIOLENCE DO YOU FEEL SAFE IN YOUR ENVIRONMENT?YES RECREATIONAL DRUG USE DRUG USE?NO EXERCISE: DISABLES, NO CONCENTRATED SWEETS.. LEARNING BARRIERS / SPECIAL NEEDS EMOTIONAL BARRIERS? PT VERBALIZES HE HAS BEEEN VERY DEPRESSED LATELY SPECIAL DEVICES?YES PT IS USING A CANE PAIN CLINIC PFS, CLERGY, PUBLIC HEALTH REFERRALS PFS REFERRAL NEEDED?NO CLERGY REFERRAL NEEDED?NO PUBLIC HEALTH REFERRAL NEEDED?NO WAS THE PROVIDER NOTIFIED OF ANY PERTINENT INFO?NO HAS THE PATIENT BEEN EDUCATED REGARDING HIS/HER PLAN OF CARE?YES HAS THE PATIENT BEEN EDUCATED REGARDING PAIN, THE RISK FOR PAIN, THE IMPORTANCE OF EFFECTIVE PAIN MANAGEMENT, AND THE PAIN ASSESSMENT PROCESS?YES LATEX QUESTIONNAIRE LATEX ALLERGY : HAVE YOU EVER DEVELOPED ANY TYPE OF REACTION AFTER HANDLING LATEX PRODUCTS SUCH RUBBER GLOVES, CONDOMS, DIAPHRAGMS, BALLOONS, SOCKS, OR UNDERWEAR?YES - PLEASE INDICATE :RUBBER GLOVES LATEX ALLERGY : HAVE YOU EVER DEVELOPED ANY TYPE OF REACTION DURING OR AFTER DENTAL APPOINTMENT, VAGINAL/RECTAL EXAMINATION, SURGICAL PROCEDURE, OR ANY OTHER EXPOSURE?YES LATEX RISK : HAVE YOU EVER HAD ANY DIFFICULTY BREATHING OR HIVES AFTER EATING OR HANDLING ANY FRUITS, OR VEGETABLES; SUCH KIWI, BANANAS, STONE FRUITS, OR CHESTNUTSNO LATEX RISK : DO YOU HAVE A PREVIOUS PERSONAL HISTORY OF MORE THAN NINE SURGERIES, SPINA BIFIDA, OR REPEATED CATHERTIZATIONS? NO LATEX RISK : ARE YOU FREQUENTLY EXPOSED TO LATEX PRODUCTS IN YOUR OCCUPATION?NO DATE ASKED : 10/05/2018 ADVANCE DIRECTIVE ADVANCE DIRECTIVE DISCUSSED WITH PATIENT:YES 05/08/18 STATES HE HAS A HCP-- [facility] [phone] ASKED TO BRING A COPY IN FOR OUR FILES ISLAM [id number] SPIRITISM ALCOHOL SCREENING DID YOU HAVE A DRINK CONTAINING ALCOHOL IN THE PAST YEAR?YES HOW OFTEN DID YOU HAVE A DRINK CONTAINING ALCOHOL IN THE PAST YEAR?MONTHLY OR LESS (1 POINT) POINTS1 INTERPRETATIONNEGATIVE REVIEWED WITH PATIENT 10/05/18 1059 LAS. HOSPITALIZATION/MAJOR DIAGNOSTIC PROCEDURE SURGERY RELATED ADHENSION INTESTINAL REVIEW OF SYSTEMS REVIEWED BY: PROVIDER: NIA LOBO MD . CONSTITUTIONAL: ANY CHANGE IN YOUR MEDICAL CONDITION? NO . CHILLS NO . FEVER NO . INFECTION: DO YOU HAVE NEW INFECTIONS? NO . DO YOU HAVE HISTORY OF MRSA? NO . MUSCULOSKELETAL: ANY NEW PATTERNS OF PAIN OR NUMBNESS? PT HAD A LUMBAR EPIDURAL STEROID INJECTION 05/08/18, REPORTS GOOD RESULTS FOR 3 MONTHS, THEN PAIN GRADUALLY RETURNED. ALSO REPORTS PAIN IS INCREASED IN NECK AND LEFT SHOULDER AREA, WITH DECREASED RANGE OF MOTION OF NECK . GASTROENTEROLOGY: ANY NEW CHANGE IN BOWEL CONTROL? NO . GENITOURINARY: ANY NEW CHANGE IN BLADDER CONTROL? NO . IS THERE A CHANCE YOU COULD BE ? NO . HEMATOLOGY/LYMPH: DO YOU TAKE ANY BLOOD THINNERS? (FOR EXAMPLE- COUMADIN, PLAVIX, AGGRENOX, PLATEL, PRADAXA, OR XARELTO) NO . WHEN WAS YOUR LAST DOSE? DATE: TIME: . NEUROLOGY: HAVE YOU FALLEN IN THE PAST 12 MONTHS? NO . ANY NEW EXTREMITY NUMBNESS OR WEAKNESS? NO . CARDIOLOGY: DO YOU HAVE A PACEMAKER OR DEFIBRILLATOR? NO . RESPIRATORY: HAVE YOU BEEN SICK IN THE PAST WEEK? NO . FEVER NO . FLU LIKE SYMPTOMS? NO . COUGH NO . INTEGUMENTARY: DO YOU HAVE ANY RASHES OR OPEN SORES? NO . ALLERGIC/IMMUNO: ARE YOU ALLERGIC TO IV DYE? NO . ANY NEW ALLERGIES? NO . PSYCHIATRIC: DO YOU HAVE THOUGHTS OF HURTING YOURSELF OR SOMEONE ELSE? NO . ARE YOU ABUSED, NEGLECTED, OR IN AN UNSAFE ENVIRONMENT? NO . ENDOCRINOLOGY: ARE YOU DIABETIC? NO . OTHER: DO YOU NEED ANY PRESCRIPTIONS? NO . IF YES, PLEASE LIST: ____ . ANY NEW PROBLEMS WITH YOUR MEDICATIONS? NO . WHEN DID YOU LAST EAT? ____ . WHEN DID YOU LAST DRINK? ____ . WHAT DID YOU LAST DRINK? ____ . NAME OF PERSON DRIVING YOU HOME? ____ . DO YOU HAVE ANY OTHER QUESTIONS OR CONCERNS PT IS HAVING TROUBLE SLEEPING SOMETIMES DUE TO PAIN, IS WONDERING ABOUT SOMETHING FOR HIS BREAKTHROUGH PAIN . VITAL SIGNS WT 183.6 LBS, HT 63 IN, BMI 32.52 INDEX, BP 141/87 MM HG, HR 97 /MIN, RR 16 /MIN, TEMP 95.7 F, OXYGEN SAT % 95%, SAFE IN ENV? (Y/N) YES, NA INITIALS AW 1032, REVIEWED BY: MYRON. EXAMINATION GENERAL EXAMINATION: PATIENT IS ALERT O X 3 AND COOPERATIVE. ANTALGIC GAIT. PATIENT IS USING A CANE TO AMBULATE. RIGHT LEG IS WEAKER AT EXTENSION AND FLEXION. STRAIGHT LEG RAISE OF THE RIGHT LEG IS POSITIVE AT 20 DEGREES FOR RADICULOPATHY. MRI OF THE LUMBAR SPINE DONE ON 05/02/2018 SHOWS POST LAMINECTOMY CHANGES AT L4-L5 AND L5-S1. ASSESSMENTS LUMBAR POST-LAMINECTOMY SYNDROME - M96.1 (PRIMARY) INTERVERTEBRAL DISC DISORDER WITH RADICULOPATHY OF LUMBAR REGION - M51.16 TREATMENT LUMBAR POST-LAMINECTOMY SYNDROME CLINICAL NOTES: WE DISCUSSED SEVERAL ISSUES WITH MR. SOLER'S PAIN MANAGEMENT CASE. DUE TO THE LUMBAR RADICULOPATHY AND THE PATIENT HAVING GOOD PAIN RELIEF IN THE PAST, I WOULD LIKE TO MOVE FORWARD WITH A LUMBAR EPIDURAL STEROID INJECTION V/S CAUDAL. WE DISCUSSED THE BENEFITS, RISKS, AND ALTERNATIVES OF THE INJECTION AND THE PATIENT WOULD LIKE TO PROCEED. I WOULD ALSO LIKE THE PATIENT TO START CELEBREX AND USE IT FOR A MONTH TO AID IN PAIN RELIEF. I WOULD LIKE TO GET A COPY OF THE PATIENT'S CERVICAL MRI WELL. THE PATIENT WILL FOLLOW UP 3 WEEKS AFTER THE INJECTION. INSTRUCTIONS WERE GIVEN, QUESTIONS WERE ANSWERED, PATIENT REPORTS UNDERSTANDING AND AGREES WITH THE PLAN. I, PANDA BETTS, DOCUMENTED THE ABOVE INFORMATION ACTING A SCRIBE FOR DR. LOBO. I HAVE REVIEWED THE ABOVE DOCUMENT, WRITTEN BY PANDA CARRERA AND I VERIFY THAT IT IS ACCURATE. . OTHERS START CELEBREX CAPSULE, 200 MG, 1 CAPSULE WITH FOOD, ORALLY FOR PAIN, ONCE A DAY, 30 DAY(S), 30, REFILLS 0 PROCEDURE CODES FA211 ESTABILISHED PATIENT [facility] CHARGE [id number] CURRENT MEDS W/DOSAGES DOCUMENTED [id number] PAIN ASSESS POS TOOL F/U PLAN DOC DISPOSITION & COMMUNICATION FOLLOW UP 6 WEEKS ELECTRONICALLY SIGNED BY NIA LOBO MD, ON 10/21/2018 AT 05:20 PM EDT DISCLAIMER : THIS IS A VISIT SUMMARY EXTRACTED FROM THE [employer] CHART. IT IS NOT A COPY OF THE [employer] PROGRESS NOTE. MTDD
== END ==
LOC: M PAIN 10:30
PROVIDERS: ATTEND Anesthesiology
DX: M96.1 Postlaminectomy syndrome, not elsewhere classified (principal); M51.16 Intervertebral disc disorders with radiculopathy, lumbar region; E11.9 Type 2 diabetes mellitus without complications; I10 Essential (primary) hypertension; K21.9 Gastro-esophageal reflux disease without esophagitis; E78.00 Pure hypercholesterolemia, unspecified; J30.2 Other seasonal allergic rhinitis; F17.210 Nicotine dependence, cigarettes, uncomplicated; Z79.84 Long term (current) use of oral hypoglycemic drugs; Z79.899 Other long term (current) drug therapy; Z88.1 Allergy status to other antibiotic agents; Z88.2 Allergy status to sulfonamides; Z88.8 Allergy status to other drugs, medicaments and biological substances; Z91.040 Latex allergy status; Z91.018 Allergy to other foods; Z86.59 Personal history of other mental and behavioral disorders

== ENCOUNTER → 2018-10-30 | Outpatient (CLI) | payer MEDICARE ==
[~2018-10-30] MED LIST changes: +ISOVUE-M 300 61% 15ML VIAL (Q9967) As Ordered ONE; +LIDOCAINE 1% SDV INJ 30 ML VIAL As Ordered ONE; +diazePAM 5 MG TAB As Ordered ONE; +methylPREDNISolone SUSP 40 MG/ML (DEPO-medrol) VIAL (J1030) As Ordered ONE; +oxyCODONE 5MG TAB As Ordered ONE
--- NOTE | 2018-10-30 16:12 | REP ---
C-ARM VIEWS LUMBOSACRAL REGION: CLINICAL HISTORY: Pain. Three C-ARM views of the lumbosacral region are performed during lumbar epidural injection by Dr. Kwok. A needle is seen and contrast was injected at the L5-S1 level. 10 seconds of fluoroscopy time was utilized. Electronically Signed by Jose Joseph MD 10/31/2018 09:29 A
--- NOTE | 2018-11-09 03:33 | ECWPNPC ---
PATIENT NAME: KALYAN SOLER : 1960 GENDER: MALE VISIT DATE: 10/30/2018 DISCHARGE DATE: 10/30/18 1347 VISIT LOCKED DATE TIME: PHYSICIAN: NIA LOBO MD RESOURCE: NIA LOBO MD REASON FOR APPOINTMENT 1. LESI HISTORY OF PRESENT ILLNESS HISTORY OF PRESENT ILLNESS: PAIN THE PATIENT DESCRIBES THE PAIN... FALL RISK SCREENING: SCREENING :NO FALLS REPORTED IN THE LAST YEAR CURRENT MEDICATIONS TAKING CELEBREX 200 MG CAPSULE 1 CAPSULE WITH FOOD ORALLY FOR PAIN ONCE A DAY, NOTES: LAST WEEK TAKING MONTELUKAST SODIUM 10 MG TABLET 1 TABLET ORALLY ONCE A DAY, NOTES: 10/30 1999 TAKING CRESTOR 20 MG TABLET 1 TABLET ORALLY ONCE A DAY, NOTES: 10/30 1999 TAKING PRILOSEC 10 MG CAPSULE DELAYED RELEASE 2 CAPSULE ORALLY ONCE A DAY, NOTES: 10/29 999 TAKING METFORMIN HCL 500 MG TABLET 1 TABLET WITH MEALS ORALLY 1 TAB IN A.M. AND 2 TABS IN P.M., NOTES: 10/30 1999 TAKING BUPROPION HCL 200 MG TABLET EXTENDED RELEASE ORALLY ONCE DAILY, NOTES: 10/28 TAKING CLONAZEPAM 0.5 MG TABLET TAB ORALLY TWICE A DAY, NOTES: 10/29 999 TAKING TYLENOL 325 MG CAPSULE 1 CAPSULE NEEDED ORALLY EVERY 4 HRS, NOTES: 10/28 TAKING GABAPENTIN 600 MG TABLET 1 CAPSULE ORALLY THREE TIMES A DAY, NOTES: 10/30 1999 TAKING ESCITALOPRAM OXALATE 10 MG TABLET 1 TABLET ORALLY ONCE A DAY, NOTES: 10/29 999 TAKING CYCLOBENZAPRINE HCL 10 MG TABLET 1 TABLET NEEDED ORALLY THREE TIMES A DAY, NOTES: 1 WEEK AGO NOT-TAKING IBUPROFEN 800 MG TABLET 1 TABLET ORALLY WITH FOOD THREE TIMES A DAY NEEDED FOR PAIN NOT-TAKING SINGULAIR 10 MG TABLET 1 TABLET IN THE EVENING ORALLY ONCE A DAY NOT-TAKING JANUVIA 100 MG TABLET 1 TABLET ORALLY ONCE A DAY, NOTES: 02-28- AM NOT-TAKING CYMBALTA 20 MG CAPSULE DELAYED RELEASE PARTICLES 1 CAPSULE ORALLY ONCE A DAY NOT-TAKING TIZANIDINE HCL 2 MG TABLET 1 TO 2 TABLETS ORALLY AT NIGHT NEEDED FOR SPASMS AND PAIN NOT-TAKING VITAMIN D-3 1000 UNIT CAPSULE 1 CAPSULE ORALLY ONCE A DAY, NOTES: NONE RECENT NOT-TAKING VICODIN 5-300 MG TABLET 1 TABLET NEEDED ORALLY EVERY 6 HRS, NOTES: NONE RECENT MEDICATION LIST REVIEWED AND RECONCILED WITH THE PATIENT PAST MEDICAL HISTORY ACID REFLUX DIABETES MALLITUS DEPRESSION SEASONAL ALLERGIES NEUROPATHY HIGH CHOLESTEROL HIGH BLOOD PRESSURE FOOD POISONING BACK PAIN MYALGIA SPINAL STENOSIS BILATERAL CATARACS ALLERGIES SULFA (FOR ALLERGY USE ONLY): VOMITING/ RASH - SIDE EFFECTS AUGMENTIN: VOMITING/RASH - SIDE EFFECTS WHEAT/FLOUR: DISORIENTATION/ SWELLING/INABILITY TO BREATH - ALLERGY CYMBALTA: LACK OF THERAPEUTIC EFFECT LATEX: ITCHY PATCHES SURGICAL HISTORY INTESTINAL SURGERY DURING CHILDHOOD CARPAL TUNNEL-ELVA BACK SURGERY 07/2015 COLONOSCOPY 09/10/2018 BILATERAL CATARAC REMOVED WITH LENS INPLANTS 2016 FAMILY HISTORY FATHER: , DIAGNOSED WITH HEART DISEASE MOTHER: , CANCER, HYPERTENSION SIBLINGS: ALIVE, DIABETES SON(S): ALIVE DAUGHTER(S): ALIVE 3DAUGHTER(S) . MOM HAD MULTIPLE CANCERS\N1 DAUGHTER IS DIABETIC. SOCIAL HISTORY GENERAL: TOBACCO USE ARE YOU A:CURRENT SMOKER ARE YOU INTERESTED IN QUITTING?THINKING ABOUT QUITTING PT IS NOW SMOKING 1 OR 2 ADAY PREVIOUS QUIT ATTEMPTS?YES, WITHIN THE LAST 6 MONTHS. COUNSELED THE PATIENT ON SMOKING CESSATION, EDUCATION [id number]/21/2019 HOW MANY CIGARETTES A DAY DO YOU SMOKE?5 OR LESS PATIENT COUNSELED ON THE DANGERS OF TOBACCO USE AND URGED TO QUIT:10/30/2018 IMMUNIZATION PROGRAM DO YOU FEEL SAFE IN YOUR ENVIRONMENT? YES JJPT IS DISABLES, NO CONCENTRATED SWEETS., NO REGULAR EXERCISE, , SPOUSE. EDUCATION LEVEL OF EDUCATION:NOT FINISHED HIGH SCHOOL DIET: GLUTEN FREE. LANGUAGE LANGUAGES SPOKEN:SETSWANA DOMESTIC VIOLENCE DO YOU FEEL SAFE IN YOUR ENVIRONMENT?YES RECREATIONAL DRUG USE DRUG USE?NO EXERCISE: DISABLES, NO CONCENTRATED SWEETS.. LEARNING BARRIERS / SPECIAL NEEDS BARRIERS TO LEARNING?YES COMMENTS ADHD, ANXIETY,DEPRESSION, TROUBLE CONCENTRATING HEARING IMPAIRED?YES :HEARING AIDES BILATERAL VISION IMPAIRED?NO COGNITIVELY IMPAIRED?NO READINESS TO LEARN?YES LEARNING PREFERENCES?NO LEARNING CAPABILITIES PRESENT?YES EMOTIONAL BARRIERS?YES PT HAS ADHS, ANXIETY AND DEPRESSION, HAS TROUBLE CONCENTRATING SPECIAL DEVICES?YES PT IS USING A [facility]E [facility] RECEPTION[facility] NEEDED?NO READS [facility] PFS, CLERGY, PUBLIC HEALTH REFERRALS PFS REFERRAL NEEDED?NO CLERGY REFERRAL NEEDED?NO PUBLIC HEALTH REFERRAL NEEDED?NO WAS THE PROVIDER NOTIFIED OF ANY PERTINENT INFO? N/A HAS THE PATIENT BEEN EDUCATED REGARDING HIS/HER PLAN OF CARE?YES HAS THE PATIENT BEEN EDUCATED REGARDING PAIN, THE RISK FOR PAIN, THE IMPORTANCE OF EFFECTIVE PAIN MANAGEMENT, AND THE PAIN ASSESSMENT PROCESS?YES LATEX QUESTIONNAIRE LATEX ALLERGY : HAVE YOU EVER DEVELOPED ANY TYPE OF REACTION AFTER HANDLING LATEX PRODUCTS SUCH RUBBER GLOVES, CONDOMS, DIAPHRAGMS, BALLOONS, SOCKS, OR UNDERWEAR?YES - PLEASE INDICATE :RUBBER GLOVES KNOWN LATEX ALLERGY LATEX ALLERGY : HAVE YOU EVER DEVELOPED ANY TYPE OF REACTION DURING OR AFTER DENTAL APPOINTMENT, VAGINAL/RECTAL EXAMINATION, SURGICAL PROCEDURE, OR ANY OTHER EXPOSURE?YES LATEX RISK : HAVE YOU EVER HAD ANY DIFFICULTY BREATHING OR HIVES AFTER EATING OR HANDLING ANY FRUITS, OR VEGETABLES; SUCH KIWI, BANANAS, STONE FRUITS, OR CHESTNUTSNO LATEX RISK : DO YOU HAVE A PREVIOUS PERSONAL HISTORY OF MORE THAN NINE SURGERIES, SPINA BIFIDA, OR REPEATED CATHERTIZATIONS? NO LATEX RISK : ARE YOU FREQUENTLY EXPOSED TO LATEX PRODUCTS IN YOUR OCCUPATION?NO DATE ASKED : 10/30/2018 CAFFEINE CAFFEINE USE?YES HOW OFTEN AND HOW MUCH? 3 CUPS COFFEE/DAY ADVANCE DIRECTIVE ADVANCE DIRECTIVE DISCUSSED WITH PATIENT:YES 10/30/18 STATES HE HAS A HCP-- [facility] [phone] ASKED TO BRING A COPY IN FOR OUR FILES [employer] [id number] ORTHODOX ALCOHOL SCREENING DID YOU HAVE A DRINK CONTAINING ALCOHOL IN THE PAST YEAR?YES HOW OFTEN DID YOU HAVE A DRINK CONTAINING ALCOHOL IN THE PAST YEAR?MONTHLY OR LESS (1 POINT) POINTS1 INTERPRETATIONNEGATIVE REVIEWED WITH PATIENT 10/05/18 1059 LAS. HOSPITALIZATION/MAJOR DIAGNOSTIC PROCEDURE SURGERY RELATED ADHENSION INTESTINAL REVIEW OF SYSTEMS REVIEWED BY: PROVIDER: . CONSTITUTIONAL: ANY CHANGE IN YOUR MEDICAL CONDITION? NO . CHILLS NO . FEVER NO . INFECTION: DO YOU HAVE NEW INFECTIONS? NO . DO YOU HAVE HISTORY OF MRSA? NO . MUSCULOSKELETAL: ANY NEW PATTERNS OF PAIN OR NUMBNESS? NO . GASTROENTEROLOGY: ANY NEW CHANGE IN BOWEL CONTROL? NO . GENITOURINARY: ANY NEW CHANGE IN BLADDER CONTROL? NO . IS THERE A CHANCE YOU COULD BE ? NO . HEMATOLOGY/LYMPH: DO YOU TAKE ANY BLOOD THINNERS? (FOR EXAMPLE- COUMADIN, PLAVIX, AGGRENOX, PLATEL, PRADAXA, OR XARELTO) NO . WHEN WAS YOUR LAST DOSE? DATE: TIME: . NEUROLOGY: HAVE YOU FALLEN IN THE PAST 12 MONTHS? YES, X 1 STUMBLED ON THE STEPS AND FELL BACKWARDS-NOT EVALUATED AFTER, NO INJURY . ANY NEW EXTREMITY NUMBNESS OR WEAKNESS? NO . CARDIOLOGY: DO YOU HAVE A PACEMAKER OR DEFIBRILLATOR? NO . RESPIRATORY: HAVE YOU BEEN SICK IN THE PAST WEEK? NO . FEVER NO . FLU LIKE SYMPTOMS? NO . COUGH NO . INTEGUMENTARY: DO YOU HAVE ANY RASHES OR OPEN SORES? NO . ALLERGIC/IMMUNO: ARE YOU ALLERGIC TO IV DYE? NO . ANY NEW ALLERGIES? NO . PSYCHIATRIC: DO YOU HAVE THOUGHTS OF HURTING YOURSELF OR SOMEONE ELSE? NO . ARE YOU ABUSED, NEGLECTED, OR IN AN UNSAFE ENVIRONMENT? NO . ENDOCRINOLOGY: ARE YOU DIABETIC? YES FSBS @ 0900 THIS AM 184 . OTHER: DO YOU NEED ANY PRESCRIPTIONS? NO . IF YES, PLEASE LIST: ____ . ANY NEW PROBLEMS WITH YOUR MEDICATIONS? NO . WHEN DID YOU LAST EAT? 10/29/18 1700 . WHEN DID YOU LAST DRINK? 10/29/18 2330 . WHAT DID YOU LAST DRINK? WATER . NAME OF PERSON DRIVING YOU HOME? . DO YOU HAVE ANY OTHER QUESTIONS OR CONCERNS NO PT HAS NOT HAD ANY VACCINES IN THE PAST 30 DAYS . VITAL SIGNS WT 183.6 LBS, HT 63 IN, BMI 32.52 INDEX, BP 142/101 MM HG, REPEAT BP 140/100MANUAL, HR 93 /MIN, RR 16 /MIN, TEMP 96.7 F, OXYGEN SAT % 98%, BLOOD GLUCOSE LEVEL 184 @ 0900, SAFE IN ENV? (Y/N) Y, NA INITIALS CO 11:51, REVIEWED BY: SUSIE. ASSESSMENTS INTERVERTEBRAL DISC DISORDER WITH RADICULOPATHY OF LUMBOSACRAL REGION - M51.17 (PRIMARY) LUMBAR POST-LAMINECTOMY SYNDROME - M96.1 TREATMENT LUMBAR POST-LAMINECTOMY SYNDROME [facility] FLUORO GUIDE SPINE INJECTION (PAIN)[id number] PROCEDURES PRE PROCEDURE DIAGNOSIS LUMBOSACRAL DISC DISORDER WITH RADICULOPATHY, LUMBAR POST LAMINECTOMY PAIN SYNDROME POST PROCEDURE DIAGNOSIS LUMBOSACRAL DISC DISORDER WITH RADICULOPATHY , LUMBAR POST LAMINECTOMY PAIN SYNDROME PROCEDURE LUMBAR EPIDURAL STEROID INJECTION UNDER FLUOROSCOPIC GUIDANCE SURGEON DR. NIA LOBO FILTER WASHER AND PRESSER NONE ANESTHESIA LOCAL PRE PROCEDURE NOTE THE PATIENT HAS A HISTORY OF CHRONIC LOW BACK PAIN. I EVALUATE THE PATIENT AND REVIEWED THE CHART. I WENT OVER THE RISKS, ALTERNATIVES, AND BENEFITS ASSOCIATED WITH THIS PROCEDURE. THE PATIENT WOULD LIKE TO PROCEED AND GIVE CONSENT TO PERFORMED THE PROCEDURE. THE PATIENT DENIES UNEXPLAINABLE WEIGHT LOSS, FEVER, CHILLS, OR NEW CHANGES IN URINARY OR BOWEL CONTROL. DESCRIPTION OF PROCEDURE THE PATIENT WAS BROUGHT TO THE PROCEDURE ROOM AND PLACED IN THE PRONE POSITION. THE LUMBOSACRAL AREA WAS CLEANED WITH BETADINE SOLUTION AND DRAPED ASEPTICALLY. THE PROCEDURE WAS DONE UNDER STERILE CONDITIONS. I CHECKED LATERALITY AND THE LEVEL WHERE THE PROCEDURE WAS GOING TO BE PERFORMED WITH THE PATIENT AND THE SUPPORTING STAFF AT THE MOMENT OF THE TIME OUT IN THE PROCEDURE ROOM. UNDER FLUOROSCOPIC GUIDANCE, THE TARGET POINT WAS SELECTED AT THE INTERLAMINAR LEVEL OF L5-S1. LIDOCAINE WAS USED TO NUMB THE SKIN AND THE SUBCUTANEOUS TISSUE BELOW IT. EPIDURAL TUOHY NEEDLE, 17-GAUGE, WAS ADVANCED UNDER FLUOROSCOPIC GUIDANCE AND FOLLOWING PATIENT FEEDBACK UNTIL THE EPIDURAL SPACE WAS REACHED, 7 CM DEEP INTO THE SKIN BY THE LOSS OF RESISTANCE TECHNIQUE. ISOVUE M DYE 30%, 0.25 ML, WAS INJECTED SHOWING ADEQUATE SPREAD OF THE DYE. THEN, A SOLUTION OF 3 ML OF NORMAL SALINE WITH DEPO-MEDROL 60 MG WAS INJECTED SLOWLY FOLLOWING PATIENT FEEDBACK. THERE WAS NO EVIDENCE OF BLOOD, PARESTHESIA OR CEREBROSPINAL FLUID DURING THE PROCEDURE. THE PATIENT WAS SENT TO THE RECOVERY ROOM. THE PATIENT WAS MOVING THE EXTREMITIES AND DOING WELL. THERE WAS NO COMPLICATION DURING THE PROCEDURE. FLUOROSCOPY TIME WAS 10 SECONDS. POST PROCEDURE NOTE THE PATIENT WILL BE SEEN IN A FOLLOW UP IN THE NEXT FEW WEEKS. INSTRUCTIONS WERE GIVEN, QUESTIONS WERE ANSWERED, AND THE PATIENT EXPRESSED UNDERSTANDING AND AGREES WITH THE PLAN. I, PANDA BETTS, DOCUMENTED THE ABOVE INFORMATION ACTING A SCRIBE FOR DR. LOBO. I HAVE REVIEWED THE ABOVE DOCUMENT, WRITTEN BY PANDA CARRERA AND I VERIFY THAT IT IS ACCURATE. PROCEDURE CODES 6045F RADXPS IN END [id number] [id number] LUMBAR/SACRAL W/ IMAGING DISPOSITION & COMMUNICATION FOLLOW UP 2 WEEKS ELECTRONICALLY SIGNED BY NIA LOBO MD, MD ON 11/07/2018 AT 04:30 PM EDT DISCLAIMER : THIS IS A VISIT SUMMARY EXTRACTED FROM THE [employer] CHART. IT IS NOT A COPY OF THE [employer] PROGRESS NOTE. MTDD
== END ==
LOC: M PAIN 11:30
PROVIDERS: ATTEND Anesthesiology
DX: G89.29 Other chronic pain (principal); M51.17 Intervertebral disc disorders with radiculopathy, lumbosacral region; M96.1 Postlaminectomy syndrome, not elsewhere classified; E11.9 Type 2 diabetes mellitus without complications; F32.9 Major depressive disorder, single episode, unspecified; F41.9 Anxiety disorder, unspecified; J30.2 Other seasonal allergic rhinitis; E78.00 Pure hypercholesterolemia, unspecified; I10 Essential (primary) hypertension; M79.7 Fibromyalgia; F17.210 Nicotine dependence, cigarettes, uncomplicated; Z79.84 Long term (current) use of oral hypoglycemic drugs; Z79.899 Other long term (current) drug therapy; Z88.1 Allergy status to other antibiotic agents; Z88.2 Allergy status to sulfonamides; Z88.8 Allergy status to other drugs, medicaments and biological substances; Z91.018 Allergy to other foods; Z91.040 Latex allergy status
CPT/HCPCS: 62323; J1030; Q9967

== ENCOUNTER → 2018-11-23 | Outpatient (CLI) | payer MEDICARE ==
[~2018-11-23] MED LIST changes: -ISOVUE-M 300 61% 15ML VIAL (Q9967) As Ordered ONE; -LIDOCAINE 1% SDV INJ 30 ML VIAL As Ordered ONE; -diazePAM 5 MG TAB As Ordered ONE; -methylPREDNISolone SUSP 40 MG/ML (DEPO-medrol) VIAL (J1030) As Ordered ONE; -oxyCODONE 5MG TAB As Ordered ONE
--- NOTE | 2018-12-01 23:31 | ECWPNPC ---
PATIENT NAME: KALYAN SOLER : 1960 GENDER: MALE VISIT DATE: 11/23/2018 DISCHARGE DATE: 11/23/18 1522 VISIT LOCKED DATE TIME: PHYSICIAN: NIA LOBO MD RESOURCE: NIA LOBO MD REASON FOR APPOINTMENT 1. POST LESI HISTORY OF PRESENT ILLNESS HISTORY OF PRESENT ILLNESS: PAIN THE PATIENT DESCRIBES THE PAIN... 58 YEAR OLD MALE PATIENT WITH A HISTORY OF CHRONIC LOW BACK AND LEG PAIN. THE PATIENT DESCRIBES THE PAIN ACHING, SORE, AND CONTINUOUS WITH A PAIN SCORE OF 3-4/10 DEPENDING ON PHYSICAL ACTIVITY. THE PATIENT SAYS THE PAIN STARTS IN HIS LOW BACK AND RADIATES DOWN BOTH LEGS, BUT THE PAIN AND TINGLING IS WORSE IN HIS RIGHT LEG AND CAUSES HIS RIGHT LEG TO LOCK UP. THE PATIENT RECEIVED A LUMBAR EPIDURAL DONE ON 10/30/2018 WHICH IS PROVIDING GOOD PAIN RELIEF. THE PATIENT SAYS HE IS CURRENTLY USING GABAPENTIN 600 MG 1 TABLET IN MORNING AND 1 AT NIGHT. THE PATIENT SAYS HE HAS BEEN EXPERIENCING CLAMMINESS, AND POUNDING IN THE BACK OF HIS NECK FOR THE LAST 2 WEEKS. THE PATIENT SAYS HE THINKS HE MAY HAVE SUFFERED A MINI STROKE. THE PATIENT SAYS HE HAS NOT BEEN TO THE ER TO BE CHECKED FOR THESE SYMPTOMS. PATIENT DENIES UNEXPLAINABLE WEIGHT LOSS, FEVER, CHILLS, NEW CHANGES ON HIS URINARY OR BOWEL CONTROL. FALL RISK SCREENING: SCREENING :NO FALLS REPORTED IN THE LAST YEAR CURRENT MEDICATIONS TAKING CELEBREX 200 MG CAPSULE 1 CAPSULE WITH FOOD ORALLY ONCE A DAY TAKING MONTELUKAST SODIUM 10 MG TABLET 1 TABLET ORALLY ONCE A DAY TAKING CRESTOR 20 MG TABLET 1 TABLET ORALLY ONCE A DAY TAKING OMEPRAZOLE 10 MG CAPSULE DELAYED RELEASE 1 CAPSULE ORALLY ONCE A DAY TAKING METFORMIN HCL 500 MG TABLET 1 TABLET WITH A MEAL IN AM; 2 TABS IN PM ORALLY BID TAKING BUPROPION HCL ER (SR) 200 MG TABLET EXTENDED RELEASE 12 HOUR 1 TABLET IN THE MORNING ORALLY ONCE A DAY TAKING CLONAZEPAM 0.5 MG TABLET 1 TABLET ORALLY BID TAKING TYLENOL 325 MG TABLET 1 TABLET NEEDED ORALLY EVERY 4 HRS TAKING GABAPENTIN 600 MG TABLET 1 TABLET ORALLY THREE TIMES DAILY TAKING ESCITALOPRAM OXALATE 10 MG TABLET 1 TABLET ORALLY ONCE A DAY TAKING CYCLOBENZAPRINE HCL 10 MG TABLET 1 TABLET NEEDED ORALLY THREE TIMES A DAY MEDICATION LIST REVIEWED AND RECONCILED WITH THE PATIENT PAST MEDICAL HISTORY ACID REFLUX DIABETES MALLITUS DEPRESSION SEASONAL ALLERGIES NEUROPATHY HIGH CHOLESTEROL HIGH BLOOD PRESSURE FOOD POISONING BACK PAIN MYALGIA SPINAL STENOSIS BILATERAL CATARACS ALLERGIES SULFA (FOR ALLERGY USE ONLY): VOMITING/ RASH - SIDE EFFECTS AUGMENTIN: VOMITING/RASH - SIDE EFFECTS WHEAT/FLOUR: DISORIENTATION/ SWELLING/INABILITY TO BREATH - ALLERGY CYMBALTA: LACK OF THERAPEUTIC EFFECT LATEX: ITCHY PATCHES SURGICAL HISTORY INTESTINAL SURGERY DURING CHILDHOOD CARPAL TUNNEL-ELVA BACK SURGERY 07/2015 COLONOSCOPY 09/10/2018 BILATERAL CATARAC REMOVED WITH LENS INPLANTS 2016 FAMILY HISTORY FATHER: , DIAGNOSED WITH HEART DISEASE MOTHER: , HYPERTENSION, CANCER SIBLINGS: ALIVE, DIABETES SON(S): ALIVE DAUGHTER(S): ALIVE 3DAUGHTER(S) . MOM HAD MULTIPLE CANCERS\N1 DAUGHTER IS DIABETIC. SOCIAL HISTORY GENERAL: TOBACCO USE ARE YOU A:CURRENT SMOKER ARE YOU INTERESTED IN QUITTING?THINKING ABOUT QUITTING PT IS NOW SMOKING 1 OR 2 ADAY PREVIOUS QUIT ATTEMPTS?YES, WITHIN THE LAST 6 MONTHS. COUNSELED THE PATIENT ON SMOKING CESSATION, EDUCATION [id number]/14/2019 HOW MANY CIGARETTES A DAY DO YOU SMOKE?5 OR LESS PATIENT COUNSELED ON THE DANGERS OF TOBACCO USE AND URGED TO QUIT:11/23/2018 IMMUNIZATION PROGRAM DO YOU FEEL SAFE IN YOUR ENVIRONMENT? YES JJPT IS DISABLES, NO CONCENTRATED SWEETS., NO REGULAR EXERCISE, , SPOUSE. EDUCATION LEVEL OF EDUCATION:NOT FINISHED HIGH SCHOOL DIET: GLUTEN FREE. LANGUAGE LANGUAGES SPOKEN:TURKMEN DOMESTIC VIOLENCE DO YOU FEEL SAFE IN YOUR ENVIRONMENT?YES RECREATIONAL DRUG USE DRUG USE?NO EXERCISE: DISABLES, NO CONCENTRATED SWEETS.. LEARNING BARRIERS / SPECIAL NEEDS BARRIERS TO LEARNING?YES COMMENTS ADHD, ANXIETY,DEPRESSION, TROUBLE CONCENTRATING HEARING IMPAIRED?YES :HEARING AIDES BILATERAL VISION IMPAIRED?NO COGNITIVELY IMPAIRED?NO READINESS TO LEARN?YES LEARNING PREFERENCES?NO LEARNING CAPABILITIES PRESENT?YES EMOTIONAL BARRIERS?YES PT HAS ADHS, ANXIETY AND DEPRESSION, HAS TROUBLE CONCENTRATING SPECIAL DEVICES?YES PT IS USING A CANE :CANE GAS METER READER NEEDED?NO READS LIPS PAIN CLINIC PFS, CLERGY, PUBLIC HEALTH REFERRALS PFS REFERRAL NEEDED?NO CLERGY REFERRAL NEEDED?NO PUBLIC HEALTH REFERRAL NEEDED?NO WAS THE PROVIDER NOTIFIED OF ANY PERTINENT INFO? N/A HAS THE PATIENT BEEN EDUCATED REGARDING HIS/HER PLAN OF CARE?YES HAS THE PATIENT BEEN EDUCATED REGARDING PAIN, THE RISK FOR PAIN, THE IMPORTANCE OF EFFECTIVE PAIN MANAGEMENT, AND THE PAIN ASSESSMENT PROCESS?YES LATEX QUESTIONNAIRE LATEX ALLERGY : HAVE YOU EVER DEVELOPED ANY TYPE OF REACTION AFTER HANDLING LATEX PRODUCTS SUCH RUBBER GLOVES, CONDOMS, DIAPHRAGMS, BALLOONS, SOCKS, OR UNDERWEAR?YES - PLEASE INDICATE :RUBBER GLOVES KNOWN LATEX ALLERGY LATEX ALLERGY : HAVE YOU EVER DEVELOPED ANY TYPE OF REACTION DURING OR AFTER DENTAL APPOINTMENT, VAGINAL/RECTAL EXAMINATION, SURGICAL PROCEDURE, OR ANY OTHER EXPOSURE?YES LATEX RISK : HAVE YOU EVER HAD ANY DIFFICULTY BREATHING OR HIVES AFTER EATING OR HANDLING ANY FRUITS, OR VEGETABLES; SUCH KIWI, BANANAS, STONE FRUITS, OR CHESTNUTSNO LATEX RISK : DO YOU HAVE A PREVIOUS PERSONAL HISTORY OF MORE THAN NINE SURGERIES, SPINA BIFIDA, OR REPEATED CATHERTIZATIONS? NO LATEX RISK : ARE YOU FREQUENTLY EXPOSED TO LATEX PRODUCTS IN YOUR OCCUPATION?NO DATE ASKED : 10/30/2018 CAFFEINE CAFFEINE USE?YES HOW OFTEN AND HOW MUCH? 3 CUPS COFFEE/DAY ADVANCE DIRECTIVE ADVANCE DIRECTIVE DISCUSSED WITH PATIENT:YES PATIENT STATES HE HAS A HCP-- [facility] [phone] ASKED TO BRING A COPY IN FOR OUR FILES DENOMINATIONAL [id number] RASTAFARIAN ALCOHOL SCREENING DID YOU HAVE A DRINK CONTAINING ALCOHOL IN THE PAST YEAR?YES HOW OFTEN DID YOU HAVE A DRINK CONTAINING ALCOHOL IN THE PAST YEAR?MONTHLY OR LESS (1 POINT) POINTS1 INTERPRETATIONNEGATIVE REVIEWED WITH PATIENT 10/05/18 1059 LAS REVIEWED WITH PATIENT 11/23/18 1405 JS. HOSPITALIZATION/MAJOR DIAGNOSTIC PROCEDURE SURGERY RELATED ADHENSION INTESTINAL REVIEW OF SYSTEMS REVIEWED BY: PROVIDER: NIA LOBO MD . CONSTITUTIONAL: ANY CHANGE IN YOUR MEDICAL CONDITION? NO . CHILLS NO . FEVER NO . INFECTION: DO YOU HAVE NEW INFECTIONS? NO . DO YOU HAVE HISTORY OF MRSA? NO . MUSCULOSKELETAL: ANY NEW PATTERNS OF PAIN OR NUMBNESS? YES, STATES RIGHT LEG NUMBNESS AND TINGLING FOR A FEW WEEKS. ALSO STATES INCREASED MUSCLE CRAMPING IN LEFT LEG . GASTROENTEROLOGY: ANY NEW CHANGE IN BOWEL CONTROL? NO . GENITOURINARY: ANY NEW CHANGE IN BLADDER CONTROL? NO . IS THERE A CHANCE YOU COULD BE ? NO . HEMATOLOGY/LYMPH: DO YOU TAKE ANY BLOOD THINNERS? (FOR EXAMPLE- COUMADIN, PLAVIX, AGGRENOX, PLATEL, PRADAXA, OR XARELTO) NO . WHEN WAS YOUR LAST DOSE? DATE: TIME: . NEUROLOGY: HAVE YOU FALLEN IN THE PAST 12 MONTHS? YES, STATES PRIOR TO LAST VISIT, DISCUSSED AT LAST VISIT . ANY NEW EXTREMITY NUMBNESS OR WEAKNESS? YES, NUMBNESS/TINGLING TO RIGHT LEG . CARDIOLOGY: DO YOU HAVE A PACEMAKER OR DEFIBRILLATOR? NO . RESPIRATORY: HAVE YOU BEEN SICK IN THE PAST WEEK? NO . FEVER NO . FLU LIKE SYMPTOMS? NO . COUGH NO . INTEGUMENTARY: DO YOU HAVE ANY RASHES OR OPEN SORES? NO . ALLERGIC/IMMUNO: ARE YOU ALLERGIC TO IV DYE? NO . ANY NEW ALLERGIES? NO . PSYCHIATRIC: DO YOU HAVE THOUGHTS OF HURTING YOURSELF OR SOMEONE ELSE? NO . ARE YOU ABUSED, NEGLECTED, OR IN AN UNSAFE ENVIRONMENT? NO . ENDOCRINOLOGY: ARE YOU DIABETIC? YES . OTHER: DO YOU NEED ANY PRESCRIPTIONS? NO . IF YES, PLEASE LIST: ____ . ANY NEW PROBLEMS WITH YOUR MEDICATIONS? NO . WHEN DID YOU LAST EAT? ____ . WHEN DID YOU LAST DRINK? ____ . WHAT DID YOU LAST DRINK? ____ . NAME OF PERSON DRIVING YOU HOME? ____ . DO YOU HAVE ANY OTHER QUESTIONS OR CONCERNS NO . VITAL SIGNS WT 197.0 LBS, HT 63 IN, BMI 34.89 INDEX, BP 141/91 MM HG, HR 113 /MIN, RR 16 /MIN, TEMP 95.6 F, OXYGEN SAT % 96%, SAFE IN ENV? (Y/N) YES, NA INITIALS [id number], REVIEWED BY: JSDISCUSSED ELEVATED BP WITH PATIENT, STATED HE WOULD DISCUSS WITH HIS PCP. 11/23/18 1406 JS - APPOINTMENT MADE FOR Monday11/26/18 @ 1:45 PM. EXAMINATION GENERAL EXAMINATION: NEUROLOGIC EXAM:I DISCUSSED WITH THE PATIENT POSSIBLE TIA DUE TO SYMPTOMS OF DROOPING MOUTH, CHEST PAIN, SWEATING, POUNDING SENSATION IN BACK OF NECK. PATIENT ADVISED TO CONTACT PRIMARY CARE PHYSICIAN FOR EVALUATION AND OR GO TO THE ER FOR EVALUATION.. PATIENT IS ALERT O X 3 AND COOPERATIVE. LEFT SIDE FLACID COMPARED TO RIGHT SIDE. MRI OF THE LUMBAR SPINE DONE ON 05/02/2018 SHOWS LAMINECTOMY CHANGES. ASSESSMENTS LUMBAR POST-LAMINECTOMY SYNDROME - M96.1 (PRIMARY) TREATMENT LUMBAR POST-LAMINECTOMY SYNDROME CLINICAL NOTES: WE DISCUSSED SEVERAL ISSUES WITH MR. SOLER'S PAIN MANAGEMENT CASE. DUE TO THE PATIENT PRESENTING SYMPTOMS OF A MINI-STROKE I AM GOING TO DISCUSS THE SYMPTOMS WITH THE PATIENT'S PRIMARY CARE PHYSICIAN, DR. AGUILAR, AND CONSIDER SENDING THE PATIENT TO THE ER. I WILL INCREASE THE PATIENT'S GABAPENTIN AND PROVIDED A SCHEDULE FOR THE PATIENT TO FOLLOW IN ORDER TO SLOWLY INCREASE THE MEDICATION TO AVOID ANY ADVERSE SIDE EFFECTS. I ADVISED THE PATIENT TO BRING MEDICATIONS TO EACH FOLLOW UP. THE PATIENT WILL FOLLOW UP IN 6 WEEKS. INSTRUCTIONS WERE GIVEN, QUESTIONS WERE ANSWERED, PATIENT REPORTS UNDERSTANDING AND AGREES WITH THE PLAN. I, KIESHA FRANK, DOCUMENTED THE ABOVE INFORMATION ACTING A SCRIBE FOR DR. LOBO. I HAVE REVIEWED THE ABOVE DOCUMENT, WRITTEN BY KIESHA HALLIBCyndie AND I VERIFY THAT IT IS ACCURATE. . PROCEDURE CODES FA211 ESTABILISHED PATIENT [facility] CHARGE [id number] CURRENT MEDS W/DOSAGES DOCUMENTED G8730 PAIN ASSESS POS TOOL F/U PLAN DOC DISPOSITION & COMMUNICATION FOLLOW UP 6 WEEKS (REASON: MEDS) ELECTRONICALLY SIGNED BY NIA LOBO MD, ON 12/01/2018 AT 07:04 PM EDT DISCLAIMER : THIS IS A VISIT SUMMARY EXTRACTED FROM THE [employer] CHART. IT IS NOT A COPY OF THE [employer] PROGRESS NOTE. NORMA
== END ==
LOC: M PAIN 13:15
PROVIDERS: ATTEND Anesthesiology
DX: M96.1 Postlaminectomy syndrome, not elsewhere classified (principal); K21.9 Gastro-esophageal reflux disease without esophagitis; E11.40 Type 2 diabetes mellitus with diabetic neuropathy, unspecified; Z86.59 Personal history of other mental and behavioral disorders; E78.00 Pure hypercholesterolemia, unspecified; I10 Essential (primary) hypertension; F17.210 Nicotine dependence, cigarettes, uncomplicated; Z88.1 Allergy status to other antibiotic agents; Z88.2 Allergy status to sulfonamides; Z88.8 Allergy status to other drugs, medicaments and biological substances; Z91.018 Allergy to other foods; Z91.040 Latex allergy status; Z79.84 Long term (current) use of oral hypoglycemic drugs; Z79.899 Other long term (current) drug therapy

== ENCOUNTER → 2019-01-16 | Outpatient (CLI) | payer MEDICARE ==
[~2019-01-16] MED LIST changes: -OMEP20CA3 PO; +OMEP20CA4 PO
--- NOTE | 2019-01-18 00:02 | ECWPNPC ---
PATIENT NAME: KALYAN SOLER : 1960 GENDER: MALE VISIT DATE: 01/16/2019 DISCHARGE DATE: 01/16/19 1415 VISIT LOCKED DATE TIME: PHYSICIAN: TIFFANIE MEDINA RESOURCE: TIFFANIE MEDINA REASON FOR APPOINTMENT 1. [address] Parra HISTORY OF PRESENT ILLNESS HISTORY OF PRESENT ILLNESS: PAIN THE PATIENT DESCRIBES THE PAIN... 58 YEAR OLD MALE IN FOR CHRONIC PAIN FOLLOW UP. HE RATES HIS PAIN AT A 5/10 CURRENTLY AND DESCRIBES IT ACHING, STABBING, SORE, AND TENDER. HE WOULD LIKE TO DISCUSS REFERRAL FOR MEDICAL MARIJUANA. FALL RISK SCREENING: SCREENING :NO FALLS REPORTED IN THE LAST YEAR CURRENT MEDICATIONS TAKING MONTELUKAST SODIUM 10 MG TABLET 1 TABLET ORALLY ONCE A DAY TAKING CRESTOR 20 MG TABLET 1 TABLET ORALLY ONCE A DAY TAKING OMEPRAZOLE 10 MG CAPSULE DELAYED RELEASE 1 CAPSULE ORALLY ONCE A DAY TAKING METFORMIN HCL 500 MG TABLET 1 TABLET WITH A MEAL IN AM; 2 TABS IN PM ORALLY BID TAKING BUPROPION HCL ER (SR) 200 MG TABLET EXTENDED RELEASE 12 HOUR 1 TABLET IN THE MORNING ORALLY ONCE A DAY TAKING CLONAZEPAM 0.5 MG TABLET 1 TABLET ORALLY BID TAKING TYLENOL 325 MG TABLET 1 TABLET NEEDED ORALLY EVERY 4 HRS TAKING GABAPENTIN 600 MG TABLET 1 TABLET ORALLY THREE TIMES DAILY TAKING ESCITALOPRAM OXALATE 10 MG TABLET 1 TABLET ORALLY ONCE A DAY TAKING CYCLOBENZAPRINE HCL 10 MG TABLET 1 TABLET NEEDED ORALLY THREE TIMES A DAY TAKING GLIPIZIDE 10 MG TABLET 1 TABLET ORALLY ONCE A DAY, NOTES: UNSURE OF DOSE NOT-TAKING CELEBREX 200 MG CAPSULE 1 CAPSULE WITH FOOD ORALLY ONCE A DAY MEDICATION LIST REVIEWED AND RECONCILED WITH THE PATIENT PAST MEDICAL HISTORY ACID REFLUX DIABETES MALLITUS DEPRESSION SEASONAL ALLERGIES NEUROPATHY HIGH CHOLESTEROL HIGH BLOOD PRESSURE FOOD POISONING BACK PAIN MYALGIA SPINAL STENOSIS BILATERAL CATARACS ALLERGIES SULFA (FOR ALLERGY USE ONLY): VOMITING/ RASH - SIDE EFFECTS AUGMENTIN: VOMITING/RASH - SIDE EFFECTS WHEAT/FLOUR: DISORIENTATION/ SWELLING/INABILITY TO BREATH - ALLERGY CYMBALTA: LACK OF THERAPEUTIC EFFECT LATEX: ITCHY PATCHES CELEBREX: ANAPHYLAXIS - ALLERGY SURGICAL HISTORY INTESTINAL SURGERY DURING CHILDHOOD CARPAL TUNNEL-ELVA BACK SURGERY 07/2015 COLONOSCOPY 09/10/2018 BILATERAL CATARAC REMOVED WITH LENS INPLANTS 2016 FAMILY HISTORY FATHER: , DIAGNOSED WITH HEART DISEASE MOTHER: , HYPERTENSION, CANCER SIBLINGS: ALIVE, DIABETES SON(S): ALIVE DAUGHTER(S): ALIVE 3DAUGHTER(S) . MOM HAD MULTIPLE CANCERS\N1 DAUGHTER IS DIABETIC. SOCIAL HISTORY GENERAL: TOBACCO USE ARE YOU A:CURRENT SMOKER ARE YOU INTERESTED IN QUITTING?THINKING ABOUT QUITTING PT IS NOW SMOKING 1 OR 2 ADAY PREVIOUS QUIT ATTEMPTS?YES, WITHIN THE LAST 6 MONTHS. COUNSELED THE PATIENT ON SMOKING CESSATION, EDUCATION [id number]/07/2019 HOW MANY CIGARETTES A DAY DO YOU SMOKE?5 OR LESS PATIENT COUNSELED ON THE DANGERS OF TOBACCO USE AND URGED TO QUIT:11/23/2018 IMMUNIZATION PROGRAM DO YOU FEEL SAFE IN YOUR ENVIRONMENT? YES JJPT IS DISABLES, NO CONCENTRATED SWEETS., NO REGULAR EXERCISE, , SPOUSE. EDUCATION LEVEL OF EDUCATION:NOT FINISHED HIGH SCHOOL DIET: GLUTEN FREE. LANGUAGE LANGUAGES SPOKEN:JORDANIAN DOMESTIC VIOLENCE DO YOU FEEL SAFE IN YOUR ENVIRONMENT?YES RECREATIONAL DRUG USE DRUG USE?NO EXERCISE: DISABLES, NO CONCENTRATED SWEETS.. LEARNING BARRIERS / SPECIAL NEEDS BARRIERS TO LEARNING?YES COMMENTS ADHD, ANXIETY,DEPRESSION, TROUBLE CONCENTRATING HEARING IMPAIRED?YES :HEARING AIDES BILATERAL VISION IMPAIRED?NO COGNITIVELY IMPAIRED?NO READINESS TO LEARN?YES LEARNING PREFERENCES?NO LEARNING CAPABILITIES PRESENT?YES EMOTIONAL BARRIERS?YES PT HAS ADHS, ANXIETY AND DEPRESSION, HAS TROUBLE CONCENTRATING SPECIAL DEVICES?YES PT IS USING A CANE :CANE VIDEO EDITING INTERN NEEDED?NO READS LIPS PAIN CLINIC PFS, CLERGY, PUBLIC HEALTH REFERRALS PFS REFERRAL NEEDED?NO CLERGY REFERRAL NEEDED?NO PUBLIC HEALTH REFERRAL NEEDED?NO WAS THE PROVIDER NOTIFIED OF ANY PERTINENT INFO? N/A HAS THE PATIENT BEEN EDUCATED REGARDING HIS/HER PLAN OF CARE?YES HAS THE PATIENT BEEN EDUCATED REGARDING PAIN, THE RISK FOR PAIN, THE IMPORTANCE OF EFFECTIVE PAIN MANAGEMENT, AND THE PAIN ASSESSMENT PROCESS?YES LATEX QUESTIONNAIRE LATEX ALLERGY : HAVE YOU EVER DEVELOPED ANY TYPE OF REACTION AFTER HANDLING LATEX PRODUCTS SUCH RUBBER GLOVES, CONDOMS, DIAPHRAGMS, BALLOONS, SOCKS, OR UNDERWEAR?YES - PLEASE INDICATE :RUBBER GLOVES KNOWN LATEX ALLERGY LATEX ALLERGY : HAVE YOU EVER DEVELOPED ANY TYPE OF REACTION DURING OR AFTER DENTAL APPOINTMENT, VAGINAL/RECTAL EXAMINATION, SURGICAL PROCEDURE, OR ANY OTHER EXPOSURE?YES LATEX RISK : HAVE YOU EVER HAD ANY DIFFICULTY BREATHING OR HIVES AFTER EATING OR HANDLING ANY FRUITS, OR VEGETABLES; SUCH KIWI, BANANAS, STONE FRUITS, OR CHESTNUTSNO LATEX RISK : DO YOU HAVE A PREVIOUS PERSONAL HISTORY OF MORE THAN NINE SURGERIES, SPINA BIFIDA, OR REPEATED CATHERIZATIONS? NO LATEX RISK : ARE YOU FREQUENTLY EXPOSED TO LATEX PRODUCTS IN YOUR OCCUPATION?NO DATE ASKED : 10/30/2018 CAFFEINE CAFFEINE USE?YES HOW OFTEN AND HOW MUCH? 3 CUPS COFFEE/DAY ADVANCE DIRECTIVE ADVANCE DIRECTIVE DISCUSSED WITH PATIENT:YES PATIENT STATES HE HAS A HCP-- [facility] [phone] ASKED TO BRING A COPY IN FOR OUR FILES MORMON [id number] [employer] ALCOHOL SCREENING DID YOU HAVE A DRINK CONTAINING ALCOHOL IN THE PAST YEAR?YES HOW OFTEN DID YOU HAVE A DRINK CONTAINING ALCOHOL IN THE PAST YEAR?MONTHLY OR LESS (1 POINT) POINTS1 INTERPRETATIONNEGATIVE REVIEWED WITH PATIENT 10/05/18 1059 LAS REVIEWED WITH PATIENT 11/23/18 1405 JS. HOSPITALIZATION/MAJOR DIAGNOSTIC PROCEDURE SURGERY RELATED ADHENSION INTESTINAL REVIEW OF SYSTEMS REVIEWED BY: PROVIDER: RENE LOERA . CONSTITUTIONAL: ANY CHANGE IN YOUR MEDICAL CONDITION? NO . CHILLS NO . FEVER NO . INFECTION: DO YOU HAVE NEW INFECTIONS? NO . DO YOU HAVE HISTORY OF MRSA? NO . MUSCULOSKELETAL: ANY NEW PATTERNS OF PAIN OR NUMBNESS? NO . GASTROENTEROLOGY: ANY NEW CHANGE IN BOWEL CONTROL? NO . GENITOURINARY: ANY NEW CHANGE IN BLADDER CONTROL? NO . IS THERE A CHANCE YOU COULD BE ? NO . HEMATOLOGY/LYMPH: DO YOU TAKE ANY BLOOD THINNERS? (FOR EXAMPLE- COUMADIN, PLAVIX, AGGRENOX, PLATEL, PRADAXA, OR XARELTO) NO . WHEN WAS YOUR LAST DOSE? DATE: TIME: . NEUROLOGY: HAVE YOU FALLEN IN THE PAST 12 MONTHS? NO . ANY NEW EXTREMITY NUMBNESS OR WEAKNESS? NO . CARDIOLOGY: DO YOU HAVE A PACEMAKER OR DEFIBRILLATOR? NO . RESPIRATORY: HAVE YOU BEEN SICK IN THE PAST WEEK? NO . FEVER NO . FLU LIKE SYMPTOMS? NO . COUGH NO . INTEGUMENTARY: DO YOU HAVE ANY RASHES OR OPEN SORES? NO . ALLERGIC/IMMUNO: ARE YOU ALLERGIC TO IV DYE? NO . ANY NEW ALLERGIES? YES, CELEBREX ANGIOEDEMA . PSYCHIATRIC: DO YOU HAVE THOUGHTS OF HURTING YOURSELF OR SOMEONE ELSE? NO . ARE YOU ABUSED, NEGLECTED, OR IN AN UNSAFE ENVIRONMENT? NO . ENDOCRINOLOGY: ARE YOU DIABETIC? YES . OTHER: DO YOU NEED ANY PRESCRIPTIONS? NO . IF YES, PLEASE LIST: ____ . ANY NEW PROBLEMS WITH YOUR MEDICATIONS? YES, CELEBREX CAUSED ANGIOEDEMA, PT WAS SEEN AT [facility] FOR THIS TX'D W IV MEDS AND TAKEN OFF CELEBREX . WHEN DID YOU LAST EAT? ____ . WHEN DID YOU LAST DRINK? ____ . WHAT DID YOU LAST DRINK? ____ . NAME OF PERSON DRIVING YOU HOME? ____ . DO YOU HAVE ANY OTHER QUESTIONS OR CONCERNS NO . VITAL SIGNS WT 187.2 LBS, HT 63 IN, BMI 33.16 INDEX, BP 148/81 MM HG, HR 89 /MIN, RR 16 /MIN, TEMP 96.7 F, OXYGEN SAT % 97%, NA INITIALS SC 13:19, REVIEWED BY: STEFANIA. EXAMINATION GENERAL EXAMINATION: GENERALNO ACUTE DISTRESS, WELL NOURISHED AND HYDRATED. PSYCHAPPROPRIATE MOOD AND AFFECT . NECK:TENDER ALONG POSTERIOR NECK AND INTO UPPER SHOULDERS. HE IS NOTED TO HAVE A MASS ON HIS RIGHT UPPER SHOULDER. SKIN SHOWS NO ERYTHEMA, ECCHYMOSIS, INCREASED WARMTH, AND OR SKIN ERUPTIONS. . LUNGS:CLEAR TO AUSCULTATION BILATERALLY, NO WHEEZES, RHONCHI, RALES. HEART:NO MURMURS, REGULAR RATE AND RHYTHM. ASSESSMENTS MYALGIA, OTHER SITE - M79.18 (PRIMARY) TREATMENT MYALGIA, OTHER SITE [facility] SOFT [id number] CLINICAL NOTES: 58 YEAR OLD MALE IN FOR CHRONIC PAIN FOLLOW UP. GIVEN PRESENTING SYMPTOMS AND RESULTS OF PHYSICAL EXAMINATION RECOMMENDED US OF SOFT TISSUE FOR FURTHER EVALUATION AND BILATERAL SHOULDER AND NECK TPI PENDING RESULTS FROM US. PATIENT HAS EXPRESSED UNDERSTANDING OF AND WAS IN AGREEMENT WITH TREATMENT PLAN. GIVEN TIME TO ASK QUESTIONS AND EXPRESS CONCERNS. . OTHERS NOTES: OPTIONS: TRIGGER POINT INJECTION MATERIAL WAS PRINTED. PROCEDURE CODES FA211 ESTABILISHED PATIENT [facility] CHARGE DISPOSITION & COMMUNICATION ELECTRONICALLY SIGNED BY ROD STOVER ON 01/17/2019 AT 08:45 AM EDT DISCLAIMER : THIS IS A VISIT SUMMARY EXTRACTED FROM THE [employer] CHART. IT IS NOT A COPY OF THE [employer] PROGRESS NOTE. MTDD
== END ==
LOC: M PAIN 13:00
PROVIDERS: ATTEND Family Medicine
DX: M79.18 Myalgia, other site (principal); K21.9 Gastro-esophageal reflux disease without esophagitis; E11.9 Type 2 diabetes mellitus without complications; Z86.59 Personal history of other mental and behavioral disorders; G62.9 Polyneuropathy, unspecified; E78.00 Pure hypercholesterolemia, unspecified; I10 Essential (primary) hypertension; F17.210 Nicotine dependence, cigarettes, uncomplicated; Z88.1 Allergy status to other antibiotic agents; Z88.2 Allergy status to sulfonamides; Z88.8 Allergy status to other drugs, medicaments and biological substances; Z91.018 Allergy to other foods; Z91.040 Latex allergy status; Z79.84 Long term (current) use of oral hypoglycemic drugs; Z79.899 Other long term (current) drug therapy

== ENCOUNTER → 2019-01-29 | Outpatient (CLI) | payer MEDICARE ==
--- NOTE | 2019-01-30 23:28 | ECWPNPC ---
PATIENT NAME: KALYAN SOLER : 1960 GENDER: MALE VISIT DATE: 01/29/2019 DISCHARGE DATE: 01/29/19 1533 VISIT LOCKED DATE TIME: PHYSICIAN: TIFFANIE MEDINA RESOURCE: TIFFANIE MEDINA REASON FOR APPOINTMENT 1. REVIEW US FROM [facility] HISTORY OF PRESENT ILLNESS HISTORY OF PRESENT ILLNESS: PAIN THE PATIENT DESCRIBES THE PAIN... 58 YEAR OLD MALE IN FOR TO REVIEW US RESULTS PRIOR TO TPI. HE RATES HIS PAIN AT A 6-8/10 CURRENTLY AND DESCRIBES IT ACHING, BURNING, AND TENDER. FALL RISK SCREENING: SCREENING :NO FALLS REPORTED IN THE LAST YEAR CURRENT MEDICATIONS TAKING MONTELUKAST SODIUM 10 MG TABLET 1 TABLET ORALLY ONCE A DAY TAKING CRESTOR 20 MG TABLET 1 TABLET ORALLY ONCE A DAY TAKING OMEPRAZOLE 10 MG CAPSULE DELAYED RELEASE 1 CAPSULE ORALLY ONCE A DAY TAKING METFORMIN HCL 500 MG TABLET 2TABS BID ORALLY BID TAKING BUPROPION HCL ER (SR) 200 MG TABLET EXTENDED RELEASE 12 HOUR 1 TABLET IN THE MORNING ORALLY ONCE A DAY TAKING CLONAZEPAM 0.5 MG TABLET 1 TABLET ORALLY BID TAKING TYLENOL 325 MG TABLET 1 TABLET NEEDED ORALLY EVERY 4 HRS TAKING ESCITALOPRAM OXALATE 10 MG TABLET 1 TABLET ORALLY ONCE A DAY TAKING GABAPENTIN 600 MG TABLET 2 TABS ORALLY BID TAKING CYCLOBENZAPRINE HCL 10 MG TABLET 1 TABLET NEEDED ORALLY THREE TIMES A DAY TAKING GLIPIZIDE 10 MG TABLET 1 TABLET ORALLY ONCE A DAY, NOTES: UNSURE OF DOSE NOT-TAKING CELEBREX 200 MG CAPSULE 1 CAPSULE WITH FOOD ORALLY ONCE A DAY MEDICATION LIST REVIEWED AND RECONCILED WITH THE PATIENT PAST MEDICAL HISTORY ACID REFLUX DIABETES MALLITUS DEPRESSION SEASONAL ALLERGIES NEUROPATHY HIGH CHOLESTEROL HIGH BLOOD PRESSURE FOOD POISONING BACK PAIN MYALGIA SPINAL STENOSIS BILATERAL CATARACS ALLERGIES SULFA (FOR ALLERGY USE ONLY): VOMITING/ RASH - SIDE EFFECTS AUGMENTIN: VOMITING/RASH - SIDE EFFECTS WHEAT/FLOUR: DISORIENTATION/ SWELLING/INABILITY TO BREATH - ALLERGY CYMBALTA: LACK OF THERAPEUTIC EFFECT LATEX: ITCHY PATCHES CELEBREX: ANAPHYLAXIS - ALLERGY SURGICAL HISTORY INTESTINAL SURGERY DURING CHILDHOOD CARPAL TUNNEL-ELVA BACK SURGERY 07/2015 COLONOSCOPY 09/10/2018 BILATERAL CATARAC REMOVED WITH LENS INPLANTS 2016 FAMILY HISTORY FATHER: , DIAGNOSED WITH HEART DISEASE MOTHER: , CANCER, HYPERTENSION SIBLINGS: ALIVE, DIABETES SON(S): ALIVE DAUGHTER(S): ALIVE 3DAUGHTER(S) . MOM HAD MULTIPLE CANCERS\N1 DAUGHTER IS DIABETIC. SOCIAL HISTORY GENERAL: TOBACCO USE ARE YOU A:CURRENT SMOKER ARE YOU INTERESTED IN QUITTING?THINKING ABOUT QUITTING PT IS NOW SMOKING 1 OR 2 ADAY PREVIOUS QUIT ATTEMPTS?YES, WITHIN THE LAST 6 MONTHS. COUNSELED THE PATIENT ON SMOKING CESSATION, EDUCATION [id number]/07/2019 HOW MANY CIGARETTES A DAY DO YOU SMOKE?5 OR LESS PATIENT COUNSELED ON THE DANGERS OF TOBACCO USE AND URGED TO QUIT:01/29/2019 IMMUNIZATION PROGRAM DO YOU FEEL SAFE IN YOUR ENVIRONMENT? YES JJPT IS DISABLES, NO CONCENTRATED SWEETS., NO REGULAR EXERCISE, , SPOUSE. EDUCATION LEVEL OF EDUCATION:NOT FINISHED HIGH SCHOOL DIET: GLUTEN FREE. LANGUAGE LANGUAGES SPOKEN:LITHUANIAN DOMESTIC VIOLENCE DO YOU FEEL SAFE IN YOUR ENVIRONMENT?YES RECREATIONAL DRUG USE DRUG USE?NO EXERCISE: DISABLES, NO CONCENTRATED SWEETS.. 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 N/A HAS THE PATIENT BEEN EDUCATED REGARDING HIS/HER PLAN OF CARE?YES HAS THE PATIENT BEEN EDUCATED REGARDING PAIN, THE RISK FOR PAIN, THE IMPORTANCE OF EFFECTIVE PAIN MANAGEMENT, AND THE PAIN ASSESSMENT PROCESS?YES LATEX QUESTIONNAIRE LATEX ALLERGY : HAVE YOU EVER DEVELOPED ANY TYPE OF REACTION AFTER HANDLING LATEX PRODUCTS SUCH RUBBER GLOVES, CONDOMS, DIAPHRAGMS, BALLOONS, SOCKS, OR UNDERWEAR?YES - PLEASE INDICATE :RUBBER GLOVES KNOWN LATEX ALLERGY LATEX ALLERGY : HAVE YOU EVER DEVELOPED ANY TYPE OF REACTION DURING OR AFTER DENTAL APPOINTMENT, VAGINAL/RECTAL EXAMINATION, SURGICAL PROCEDURE, OR ANY OTHER EXPOSURE?YES LATEX RISK : HAVE YOU EVER HAD ANY DIFFICULTY BREATHING OR HIVES AFTER EATING OR HANDLING ANY FRUITS, OR VEGETABLES; SUCH KIWI, BANANAS, STONE FRUITS, OR CHESTNUTSNO LATEX RISK : DO YOU HAVE A PREVIOUS PERSONAL HISTORY OF MORE THAN NINE SURGERIES, SPINA BIFIDA, OR REPEATED CATHERIZATIONS? NO LATEX RISK : ARE YOU FREQUENTLY EXPOSED TO LATEX PRODUCTS IN YOUR OCCUPATION?NO DATE ASKED : 10/30/2018 CAFFEINE CAFFEINE USE?YES HOW OFTEN AND HOW MUCH? 3 CUPS COFFEE/DAY ADVANCE DIRECTIVE ADVANCE DIRECTIVE DISCUSSED WITH PATIENT:YES PATIENT STATES HE HAS A HCP-- [facility] [phone] ASKED TO BRING A COPY IN FOR OUR FILES ALEVISM [id number] [employer] ALCOHOL SCREENING DID YOU HAVE A DRINK CONTAINING ALCOHOL IN THE PAST YEAR?YES HOW OFTEN DID YOU HAVE A DRINK CONTAINING ALCOHOL IN THE PAST YEAR?MONTHLY OR LESS (1 POINT) POINTS1 INTERPRETATIONNEGATIVE REVIEWED WITH PATIENT 10/05/18 1059 LAS REVIEWED WITH PATIENT 11/23/18 1405 JSREVIEWED WITH PATIENT 01/29/19 1452 NLJ. HOSPITALIZATION/MAJOR DIAGNOSTIC PROCEDURE SURGERY RELATED ADHENSION INTESTINAL REVIEW OF SYSTEMS REVIEWED BY: PROVIDER: RENE LOERA . CONSTITUTIONAL: ANY CHANGE IN YOUR MEDICAL CONDITION? NO . CHILLS NO . FEVER NO . INFECTION: DO YOU HAVE NEW INFECTIONS? NO . DO YOU HAVE HISTORY OF MRSA? NO . MUSCULOSKELETAL: ANY NEW PATTERNS OF PAIN OR NUMBNESS? YES- STATES INCREASED PAIN IN LEFT LEG, STATES IT FEELS NUMB AND LIKE IT IS FALLING ASLEEP . GASTROENTEROLOGY: ANY NEW CHANGE IN BOWEL CONTROL? NO . GENITOURINARY: ANY NEW CHANGE IN BLADDER CONTROL? NO . IS THERE A CHANCE YOU COULD BE ? NO . HEMATOLOGY/LYMPH: DO YOU TAKE ANY BLOOD THINNERS? (FOR EXAMPLE- COUMADIN, PLAVIX, AGGRENOX, PLATEL, PRADAXA, OR XARELTO) NO . WHEN WAS YOUR LAST DOSE? DATE: TIME: . NEUROLOGY: HAVE YOU FALLEN IN THE PAST 12 MONTHS? NO . ANY NEW EXTREMITY NUMBNESS OR WEAKNESS? YES- LEFT THIGH AREA NUMB AND FEELS LIKE IT IS FALLING ASLEEP . CARDIOLOGY: DO YOU HAVE A PACEMAKER OR DEFIBRILLATOR? NO . RESPIRATORY: HAVE YOU BEEN SICK IN THE PAST WEEK? NO . FEVER NO . FLU LIKE SYMPTOMS? NO . COUGH NO . INTEGUMENTARY: DO YOU HAVE ANY RASHES OR OPEN SORES? NO . ALLERGIC/IMMUNO: ARE YOU ALLERGIC TO IV DYE? NO . ANY NEW ALLERGIES? NO . PSYCHIATRIC: DO YOU HAVE THOUGHTS OF HURTING YOURSELF OR SOMEONE ELSE? NO . ARE YOU ABUSED, NEGLECTED, OR IN AN UNSAFE ENVIRONMENT? NO . ENDOCRINOLOGY: ARE YOU DIABETIC? YES . OTHER: DO YOU NEED ANY PRESCRIPTIONS? NO . IF YES, PLEASE LIST: ____ . ANY NEW PROBLEMS WITH YOUR MEDICATIONS? NO . WHEN DID YOU LAST EAT? ____ . WHEN DID YOU LAST DRINK? ____ . WHAT DID YOU LAST DRINK? ____ . NAME OF PERSON DRIVING YOU HOME? ____ . DO YOU HAVE ANY OTHER QUESTIONS OR CONCERNS YES- REVIEW ULTRASOUND RESULTS, AND REFERRAL FOR MEDICAL MARIJUANA . VITAL SIGNS WT 187.8 LBS, HT 63 IN, BMI 33.26 INDEX, BP 137/89 MM HG, HR 79 /MIN, RR 16 /MIN, TEMP 96.9 F, OXYGEN SAT % 96%, SAFE IN ENV? (Y/N) YES, NA INITIALS SC 15:00, REVIEWED BY: DEANA. EXAMINATION GENERAL EXAMINATION: GENERALNO ACUTE DISTRESS, WELL NOURISHED AND HYDRATED. PSYCHAPPROPRIATE MOOD AND AFFECT . LUNGS:CLEAR TO AUSCULTATION BILATERALLY, NO WHEEZES, RHONCHI, RALES. HEART:NO MURMURS, REGULAR RATE AND RHYTHM. ASSESSMENTS MYALGIA - M79.1 (PRIMARY) TREATMENT MYALGIA CT SCAN : RIGHT [id number],CHRIS A 01/29/2019 3:27:15 PM > PLEASE DO WITH CONTRAST CLINICAL NOTES: 58 YEAR OLD MALE IN FOR REVIEW OF US RESULTS. GIVEN PRESENTING SYMPTOMS AND RESULTS OF PHYSICAL EXAMINATION RECOMMENDED CT FOR FURTHER EVALUATION PER RECOMMENDATION FROM RADIOLOGY. PATIENT HAS EXPRESSED UNDERSTANDING OF AND WAS IN AGREEMENT WITH TREATMENT PLAN. GIVEN TIME TO ASK QUESTIONS AND EXPRESS CONCERNS. . PROCEDURE CODES FA211 ESTABILISHED PATIENT [facility] CHARGE DISPOSITION & COMMUNICATION FOLLOW UP POST CT (REASON: CT RESULTS ) ELECTRONICALLY SIGNED BY ROD STOVER ON 01/30/2019 AT 10:29 AM EDT DISCLAIMER : THIS IS A VISIT SUMMARY EXTRACTED FROM THE [employer] CHART. IT IS NOT A COPY OF THE [employer] PROGRESS NOTE. NORMA
== END ==
LOC: M PAIN 14:30
PROVIDERS: ATTEND Family Medicine
DX: M79.18 Myalgia, other site (principal); K21.9 Gastro-esophageal reflux disease without esophagitis; E11.40 Type 2 diabetes mellitus with diabetic neuropathy, unspecified; Z86.59 Personal history of other mental and behavioral disorders; E78.00 Pure hypercholesterolemia, unspecified; I10 Essential (primary) hypertension; F17.210 Nicotine dependence, cigarettes, uncomplicated; Z88.1 Allergy status to other antibiotic agents; Z88.2 Allergy status to sulfonamides; Z88.8 Allergy status to other drugs, medicaments and biological substances; Z91.040 Latex allergy status; Z79.84 Long term (current) use of oral hypoglycemic drugs; Z79.899 Other long term (current) drug therapy

== ENCOUNTER → 2019-02-01 | Outpatient (CLI) | payer MEDICARE ==
--- NOTE | 2019-02-04 23:09 | ECWPNPC ---
PATIENT NAME: KALYAN SOLER : 1960 GENDER: MALE VISIT DATE: 02/01/2019 DISCHARGE DATE: 02/01/19 1525 VISIT LOCKED DATE TIME: PHYSICIAN: TIFFANIE MEDINA RESOURCE: TIFFANIE MEDINA REASON FOR APPOINTMENT 1. LOW BACK HISTORY OF PRESENT ILLNESS HISTORY OF PRESENT ILLNESS: PAIN THE PATIENT DESCRIBES THE PAIN... 58 YEAR OLD MALE IN FOR CHRONIC PAIN FOLLOW UP. HE RATES THE PAIN AT A 6-7/10 AND CURRENTLY DESCRIBES IT ACHING, SHARP, STABBING, SORE, AND SHOOTING. FALL RISK SCREENING: SCREENING :NO FALLS REPORTED IN THE LAST YEAR CURRENT MEDICATIONS TAKING MONTELUKAST SODIUM 10 MG TABLET 1 TABLET ORALLY ONCE A DAY TAKING CRESTOR 20 MG TABLET 1 TABLET ORALLY ONCE A DAY TAKING OMEPRAZOLE 10 MG CAPSULE DELAYED RELEASE 1 CAPSULE ORALLY ONCE A DAY TAKING METFORMIN HCL 500 MG TABLET 2TABS BID ORALLY BID TAKING BUPROPION HCL ER (SR) 200 MG TABLET EXTENDED RELEASE 12 HOUR 1 TABLET IN THE MORNING ORALLY ONCE A DAY TAKING CLONAZEPAM 0.5 MG TABLET 1 TABLET ORALLY BID TAKING TYLENOL 325 MG TABLET 1 TABLET NEEDED ORALLY EVERY 4 HRS TAKING ESCITALOPRAM OXALATE 10 MG TABLET 1 TABLET ORALLY ONCE A DAY TAKING GABAPENTIN 600 MG TABLET 2 TABS ORALLY BID TAKING CYCLOBENZAPRINE HCL 10 MG TABLET 1 TABLET NEEDED ORALLY THREE TIMES A DAY TAKING GLIPIZIDE 10 MG TABLET 1 TABLET ORALLY ONCE A DAY, NOTES: UNSURE OF DOSE TAKING FARXIGA 5 MG TABLET 1 TABLET ORALLY ONCE A DAY NOT-TAKING CELEBREX 200 MG CAPSULE 1 CAPSULE WITH FOOD ORALLY ONCE A DAY MEDICATION LIST REVIEWED AND RECONCILED WITH THE PATIENT PAST MEDICAL HISTORY ACID REFLUX DIABETES MALLITUS DEPRESSION SEASONAL ALLERGIES NEUROPATHY HIGH CHOLESTEROL HIGH BLOOD PRESSURE FOOD POISONING BACK PAIN MYALGIA SPINAL STENOSIS BILATERAL CATARACS ALLERGIES SULFA (FOR ALLERGY USE ONLY): VOMITING/ RASH - SIDE EFFECTS AUGMENTIN: VOMITING/RASH - SIDE EFFECTS WHEAT/FLOUR: DISORIENTATION/ SWELLING/INABILITY TO BREATH - ALLERGY CYMBALTA: LACK OF THERAPEUTIC EFFECT LATEX: ITCHY PATCHES CELEBREX: ANAPHYLAXIS - ALLERGY SURGICAL HISTORY INTESTINAL SURGERY DURING CHILDHOOD CARPAL TUNNEL-ELVA BACK SURGERY 07/2015 COLONOSCOPY 09/10/2018 BILATERAL CATARAC REMOVED WITH LENS INPLANTS 2016 FAMILY HISTORY FATHER: , DIAGNOSED WITH HEART DISEASE MOTHER: , CANCER, HYPERTENSION SIBLINGS: ALIVE, DIABETES SON(S): ALIVE DAUGHTER(S): ALIVE 3DAUGHTER(S) . MOM HAD MULTIPLE CANCERS\N1 DAUGHTER IS DIABETIC. SOCIAL HISTORY GENERAL: TOBACCO USE ARE YOU A:CURRENT SMOKER ARE YOU INTERESTED IN QUITTING?THINKING ABOUT QUITTING PT IS NOW SMOKING 1 OR 2 ADAY PREVIOUS QUIT ATTEMPTS?YES, WITHIN THE LAST 6 MONTHS. COUNSELED THE PATIENT ON SMOKING CESSATION, EDUCATION [id number]/07/2019 HOW MANY CIGARETTES A DAY DO YOU SMOKE?5 OR LESS PATIENT COUNSELED ON THE DANGERS OF TOBACCO USE AND URGED TO QUIT:02/01/2019 IMMUNIZATION PROGRAM DO YOU FEEL SAFE IN YOUR ENVIRONMENT? YES JJPT IS DISABLES, NO CONCENTRATED SWEETS., NO REGULAR EXERCISE, , SPOUSE. EDUCATION LEVEL OF EDUCATION:NOT FINISHED HIGH SCHOOL DIET: GLUTEN FREE. LANGUAGE LANGUAGES SPOKEN:GAMBIAN DOMESTIC VIOLENCE DO YOU FEEL SAFE IN YOUR ENVIRONMENT?YES RECREATIONAL DRUG USE DRUG USE?NO EXERCISE: DISABLES, NO CONCENTRATED SWEETS.. 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 N/A HAS THE PATIENT BEEN EDUCATED REGARDING HIS/HER PLAN OF CARE?YES HAS THE PATIENT BEEN EDUCATED REGARDING PAIN, THE RISK FOR PAIN, THE IMPORTANCE OF EFFECTIVE PAIN MANAGEMENT, AND THE PAIN ASSESSMENT PROCESS?YES LATEX QUESTIONNAIRE LATEX ALLERGY : HAVE YOU EVER DEVELOPED ANY TYPE OF REACTION AFTER HANDLING LATEX PRODUCTS SUCH RUBBER GLOVES, CONDOMS, DIAPHRAGMS, BALLOONS, SOCKS, OR UNDERWEAR?YES - PLEASE INDICATE :RUBBER GLOVES KNOWN LATEX ALLERGY LATEX ALLERGY : HAVE YOU EVER DEVELOPED ANY TYPE OF REACTION DURING OR AFTER DENTAL APPOINTMENT, VAGINAL/RECTAL EXAMINATION, SURGICAL PROCEDURE, OR ANY OTHER EXPOSURE?YES LATEX RISK : HAVE YOU EVER HAD ANY DIFFICULTY BREATHING OR HIVES AFTER EATING OR HANDLING ANY FRUITS, OR VEGETABLES; SUCH KIWI, BANANAS, STONE FRUITS, OR CHESTNUTSNO LATEX RISK : DO YOU HAVE A PREVIOUS PERSONAL HISTORY OF MORE THAN NINE SURGERIES, SPINA BIFIDA, OR REPEATED CATHERIZATIONS? NO LATEX RISK : ARE YOU FREQUENTLY EXPOSED TO LATEX PRODUCTS IN YOUR OCCUPATION?NO DATE ASKED : 10/30/2018 CAFFEINE CAFFEINE USE?YES HOW OFTEN AND HOW MUCH? 3 CUPS COFFEE/DAY ADVANCE DIRECTIVE ADVANCE DIRECTIVE DISCUSSED WITH PATIENT:YES PATIENT STATES HE HAS A HCP-- [facility] [phone] ASKED TO BRING A COPY IN FOR OUR FILES JEW [id number] [place] ALCOHOL SCREENING DID YOU HAVE A DRINK CONTAINING ALCOHOL IN THE PAST YEAR?YES HOW OFTEN DID YOU HAVE A DRINK CONTAINING ALCOHOL IN THE PAST YEAR?MONTHLY OR LESS (1 POINT) POINTS1 INTERPRETATIONNEGATIVE REVIEWED WITH PATIENT 10/05/18 1059 LAS REVIEWED WITH PATIENT 11/23/18 1405 JSREVIEWED WITH PATIENT 01/29/19 1452 NLJREVIEWED WITH PATIENT 02/01/19 1441 NLJ. HOSPITALIZATION/MAJOR DIAGNOSTIC PROCEDURE SURGERY RELATED ADHENSION INTESTINAL REVIEW OF SYSTEMS REVIEWED BY: PROVIDER: RENE VELASCO-C . CONSTITUTIONAL: ANY CHANGE IN YOUR MEDICAL CONDITION? NO . CHILLS NO . FEVER NO . INFECTION: DO YOU HAVE NEW INFECTIONS? NO . DO YOU HAVE HISTORY OF MRSA? NO . MUSCULOSKELETAL: ANY NEW PATTERNS OF PAIN OR NUMBNESS? YES- INCREASED PAIN IN LWER AND LEFT AND RIGHT LEG, NUMBNESS IN LEFT LEG, AND RIGHT LEG TINGLING AND SOME PAIN . GASTROENTEROLOGY: ANY NEW CHANGE IN BOWEL CONTROL? NO . GENITOURINARY: ANY NEW CHANGE IN BLADDER CONTROL? NO . IS THERE A CHANCE YOU COULD BE ? NO . HEMATOLOGY/LYMPH: DO YOU TAKE ANY BLOOD THINNERS? (FOR EXAMPLE- COUMADIN, PLAVIX, AGGRENOX, PLATEL, PRADAXA, OR XARELTO) NO . WHEN WAS YOUR LAST DOSE? DATE: TIME: . NEUROLOGY: HAVE YOU FALLEN IN THE PAST 12 MONTHS? YES- FELL A COUPLE OF MONTHS AGO, STATES HE TRIPPED IN A HOLE, NO MEDICAL CARE RECEIVED . ANY NEW EXTREMITY NUMBNESS OR WEAKNESS? NO . CARDIOLOGY: DO YOU HAVE A PACEMAKER OR DEFIBRILLATOR? NO . RESPIRATORY: HAVE YOU BEEN SICK IN THE PAST WEEK? NO . FEVER NO . FLU LIKE SYMPTOMS? NO . COUGH NO . INTEGUMENTARY: DO YOU HAVE ANY RASHES OR OPEN SORES? NO . ALLERGIC/IMMUNO: ARE YOU ALLERGIC TO IV DYE? NO . ANY NEW ALLERGIES? NO . PSYCHIATRIC: DO YOU HAVE THOUGHTS OF HURTING YOURSELF OR SOMEONE ELSE? NO . ARE YOU ABUSED, NEGLECTED, OR IN AN UNSAFE ENVIRONMENT? NO . ENDOCRINOLOGY: ARE YOU DIABETIC? NO . OTHER: DO YOU NEED ANY PRESCRIPTIONS? NO . IF YES, PLEASE LIST: ____ . ANY NEW PROBLEMS WITH YOUR MEDICATIONS? NO . WHEN DID YOU LAST EAT? ____ . WHEN DID YOU LAST DRINK? ____ . WHAT DID YOU LAST DRINK? ____ . NAME OF PERSON DRIVING YOU HOME? ____ . DO YOU HAVE ANY OTHER QUESTIONS OR CONCERNS YES- STATES HE HAS INCREASED PAIN IN HIS LOWER BACK AND SOME PAIN AND NUMNESS/TINGLING IN BLE, ASKING ABOUT MEDICAL MARIJUANA . VITAL SIGNS WT 187.8 LBS, HT 63 IN, BMI 33.26 INDEX, BP 137/90 MM HG, HR 80 /MIN, RR 16 /MIN, TEMP 96.8 F, OXYGEN SAT % 96%, SAFE IN ENV? (Y/N) YES, NA INITIALS AW 1443, REVIEWED BY: DEANA. EXAMINATION GENERAL EXAMINATION: GENERALNO ACUTE DISTRESS, WELL NOURISHED AND HYDRATED. PSYCHAPPROPRIATE MOOD AND AFFECT . LUNGS:CLEAR TO AUSCULTATION BILATERALLY, NO WHEEZES, RHONCHI, RALES. HEART:NO MURMURS, REGULAR RATE AND RHYTHM. BACK:+ SLR RIGHT SIDE, + TENDER L5-S1, SURROUNDING SKIN SHOWS NO ERYTHEMA, ECCHYMOSIS, INCREASED WARMTH, AND/OR SKIN ERUPTIONS. . MUSCULOSKELETAL:EQUAL STRENGTH IN THE LOWER EXTREMITIES BILATERALLY . ASSESSMENTS INTERVERTEBRAL DISC DISORDERS WITH RADICULOPATHY, LUMBAR REGION - M51.16 (PRIMARY) TREATMENT INTERVERTEBRAL DISC DISORDERS WITH RADICULOPATHY, LUMBAR REGION NOTES: LESI L5-S1. CLINICAL NOTES: 58 YEAR OLD MALE IN FOR CHRONIC PAIN FOLLOW UP. GIVEN PRESENTING SYMPTOMS AND RESULTS OF PHYSICAL EXAMINATION RECOMMENDED LESI WITH POST PROCEDURAL FOLLOW UP. FURTHER RECOMMENDED REFERRAL FOR MEDICAL MARIJUANA. PATIENT HAS EXPRESSED UNDERSTANDING OF AND WAS IN AGREEMENT WITH TREATMENT PLAN. GIVEN TIME TO ASK QUESTIONS AND EXPRESS CONCERNS. PREVENTIVE MEDICINE PAIN CLINIC TEACHING: PROCEDURE TEACHING LUMBAR EPIDURAL STEROID INJECTION EDUCATION REVIEWED WITH PATIENT, PATIENT DECLINED PRINTED HABDOUTS 02/01/19 1528 DEANA. PROCEDURE CODES FA211 ESTABILISHED PATIENT [facility] FAC[facility] CHARGE DISPOSITION & COMMUNICATION FOLLOW UP POST PROCEDURE (REASON: LESI L5-S1) ELECTRONICALLY SIGNED BY ROD STOVER ON 02/04/2019 AT 11:26 AM EDT DISCLAIMER : THIS IS A VISIT SUMMARY EXTRACTED FROM THE [employer] CHART. IT IS NOT A COPY OF THE [employer] PROGRESS NOTE. NORMA
== END ==
LOC: M PAIN 14:30
PROVIDERS: ATTEND Family Medicine
DX: M51.16 Intervertebral disc disorders with radiculopathy, lumbar region (principal); G89.29 Other chronic pain; K21.9 Gastro-esophageal reflux disease without esophagitis; E11.40 Type 2 diabetes mellitus with diabetic neuropathy, unspecified; Z86.59 Personal history of other mental and behavioral disorders; E78.00 Pure hypercholesterolemia, unspecified; I10 Essential (primary) hypertension; M79.18 Myalgia, other site; F17.210 Nicotine dependence, cigarettes, uncomplicated; Z88.1 Allergy status to other antibiotic agents; Z88.2 Allergy status to sulfonamides; Z88.8 Allergy status to other drugs, medicaments and biological substances; Z91.018 Allergy to other foods; Z91.040 Latex allergy status; Z79.84 Long term (current) use of oral hypoglycemic drugs; Z79.899 Other long term (current) drug therapy

== ENCOUNTER → 2019-03-14 | Outpatient (CLI) | payer MEDICARE ==
[~2019-03-14] MED LIST changes: +ISOVUE-M 300 61% 15ML VIAL (Q9967) As Ordered ONE; +LIDOCAINE 1% SDV INJ 30 ML VIAL As Ordered ONE; +diazePAM 2 MG TAB As Ordered ONE; +methylPREDNISolone SUSP 40 MG/ML (DEPO-medrol) VIAL (J1030) As Ordered ONE; +oxyCODONE 5MG TAB As Ordered ONE
--- NOTE | 2019-03-14 14:52 | REP ---
Partial lumbar spine: Single view. History: Lumbar epidural steroid injection for pain. 12 seconds of fluoroscopy time is reported. Findings: A single last image hold fluoroscopically obtained spot radiograph of the lumbar spine documents needle position and contrast injection associated with lumbar injection procedure. Electronically Signed by Buster Boykin MD 03/14/2019 02:44 P
== END ==
LOC: M PAIN 11:45
PROVIDERS: ATTEND Anesthesiology
DX: M51.17 Intervertebral disc disorders with radiculopathy, lumbosacral region (principal); M96.1 Postlaminectomy syndrome, not elsewhere classified; E11.9 Type 2 diabetes mellitus without complications; F17.210 Nicotine dependence, cigarettes, uncomplicated; Z79.84 Long term (current) use of oral hypoglycemic drugs; Z79.899 Other long term (current) drug therapy; Z88.2 Allergy status to sulfonamides; Z88.8 Allergy status to other drugs, medicaments and biological substances; Z91.018 Allergy to other foods; Z91.040 Latex allergy status
CPT/HCPCS: 62323; J1030; Q9967

== ENCOUNTER → 2019-07-10 | Outpatient (CLI) | payer MEDICARE ==
[~2019-07-10] MED LIST changes: -BUPR300T34 PO; +BUPR300T92 PO; +CLON0.5T2 PO; -CLON0.5T8 PO; -ISOVUE-M 300 61% 15ML VIAL (Q9967) As Ordered ONE; -LIDOCAINE 1% SDV INJ 30 ML VIAL As Ordered ONE; +OMEP1CAP73 PO; -OMEP20CA4 PO; -diazePAM 2 MG TAB As Ordered ONE; -methylPREDNISolone SUSP 40 MG/ML (DEPO-medrol) VIAL (J1030) As Ordered ONE; -oxyCODONE 5MG TAB As Ordered ONE
--- NOTE | 2019-07-11 23:05 | ECWPNPC ---
PATIENT NAME: KALYAN SOLER : 1960 GENDER: MALE VISIT DATE: 07/10/2019 DISCHARGE DATE: 07/10/19 1224 VISIT LOCKED DATE TIME: PHYSICIAN: TIFFANIE MEDINA RESOURCE: TIFFANIE MEDINA REASON FOR APPOINTMENT 1. POST PROC HISTORY OF PRESENT ILLNESS HISTORY OF PRESENT ILLNESS: PAIN THE PATIENT DESCRIBES THE PAIN... 59-YEAR-OLD MALE IN FOR POST LESI FOLLOW-UP. HE ADMITS TO 4 MONTHS OF RELIEF STATUS POST PROCEDURE. HE RATES HIS PAIN CURRENTLY AT AN 8-9 OUT OF 10 AND DESCRIBES IT ACHING, SHARP, STABBING, AND TENDER. FALL RISK SCREENING: SCREENING :NO FALLS REPORTED IN THE LAST YEAR CURRENT MEDICATIONS TAKING MONTELUKAST SODIUM 10 MG TABLET 1 TABLET ORALLY ONCE A DAY TAKING CRESTOR 20 MG TABLET 1 TABLET ORALLY ONCE A DAY TAKING OMEPRAZOLE 10 MG CAPSULE DELAYED RELEASE 1 CAPSULE ORALLY ONCE A DAY TAKING METFORMIN HCL 500 MG TABLET 2TABS BID ORALLY BID TAKING CLONAZEPAM 0.5 MG TABLET 1 TABLET ORALLY BID TAKING ESCITALOPRAM OXALATE 10 MG TABLET 1 TABLET ORALLY ONCE A DAY TAKING GABAPENTIN 600 MG TABLET 2 TABS ORALLY BID NOT-TAKING BUPROPION HCL ER (SR) 200 MG TABLET EXTENDED RELEASE 12 HOUR 1 TABLET IN THE MORNING ORALLY ONCE A DAY NOT-TAKING TYLENOL 325 MG TABLET 1 TABLET NEEDED ORALLY EVERY 4 HRS NOT-TAKING CYCLOBENZAPRINE HCL 10 MG TABLET 1 TABLET NEEDED ORALLY THREE TIMES A DAY NOT-TAKING GLIPIZIDE 10 MG TABLET 1 TABLET ORALLY ONCE A DAY NOT-TAKING FARXIGA 5 MG TABLET 1 TABLET ORALLY ONCE A DAY NOT-TAKING CELEBREX 200 MG CAPSULE 1 CAPSULE WITH FOOD ORALLY ONCE A DAY MEDICATION LIST REVIEWED AND RECONCILED WITH THE PATIENT PAST MEDICAL HISTORY ACID REFLUX DIABETES MALLITUS DEPRESSION SEASONAL ALLERGIES NEUROPATHY HIGH CHOLESTEROL HIGH BLOOD PRESSURE FOOD POISONING BACK PAIN MYALGIA SPINAL STENOSIS BILATERAL CATARACS ALLERGIES SULFA (FOR ALLERGY USE ONLY): VOMITING/ RASH - SIDE EFFECTS AUGMENTIN: VOMITING/RASH - SIDE EFFECTS WHEAT/FLOUR: DISORIENTATION/ SWELLING/INABILITY TO BREATH - ALLERGY CYMBALTA: LACK OF THERAPEUTIC EFFECT LATEX: ITCHY PATCHES CELEBREX: ANAPHYLAXIS - ALLERGY SURGICAL HISTORY INTESTINAL SURGERY DURING CHILDHOOD CARPAL TUNNEL-ELVA BACK SURGERY 07/2015 COLONOSCOPY 09/10/2018 BILATERAL CATARAC REMOVED WITH LENS INPLANTS 2016 FAMILY HISTORY FATHER: , DIAGNOSED WITH UNSPECIFIED HEART DISEASE MOTHER: , HYPERTENSION, OTHER MALIGNANT NEOPLASM OF UNSPECIFIED SITE SIBLINGS: ALIVE, DIABETES SON(S): ALIVE DAUGHTER(S): ALIVE 3DAUGHTER(S) . MOM HAD MULTIPLE CANCERS\N1 DAUGHTER IS DIABETIC. SOCIAL HISTORY GENERAL: TOBACCO USE ARE YOU A:CURRENT SMOKER ARE YOU INTERESTED IN QUITTING?THINKING ABOUT QUITTING PT IS NOW SMOKING 1 OR 2 ADAY PREVIOUS QUIT ATTEMPTS?YES, WITHIN THE LAST 6 MONTHS. COUNSELED THE PATIENT ON SMOKING CESSATION, EDUCATION [id number]/07/2019 HOW MANY CIGARETTES A DAY DO YOU SMOKE?5 OR LESS PATIENT COUNSELED ON THE DANGERS OF TOBACCO USE AND URGED TO QUIT:07/10/2019 IMMUNIZATION PROGRAM DO YOU FEEL SAFE IN YOUR ENVIRONMENT? YES JJPT IS DISABLES, NO CONCENTRATED SWEETS., NO REGULAR EXERCISE, , SPOUSE. EDUCATION LEVEL OF EDUCATION:NOT FINISHED HIGH SCHOOL DIET: GLUTEN FREE. LANGUAGE LANGUAGES SPOKEN:MAORI DOMESTIC VIOLENCE DO YOU FEEL SAFE IN YOUR ENVIRONMENT?YES RECREATIONAL DRUG USE DRUG USE?NO EXERCISE: DISABLES, NO CONCENTRATED SWEETS.. 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?NO READS LIPS PAIN CLINIC PFS, CLERGY, PUBLIC HEALTH REFERRALS PFS REFERRAL NEEDED?NO CLERGY REFERRAL NEEDED?NO PUBLIC HEALTH REFERRAL NEEDED?NO WAS THE PROVIDER NOTIFIED OF ANY PERTINENT INFO?YES N/A HAS THE PATIENT BEEN EDUCATED REGARDING HIS/HER PLAN OF CARE?YES HAS THE PATIENT BEEN EDUCATED REGARDING PAIN, THE RISK FOR PAIN, THE IMPORTANCE OF EFFECTIVE PAIN MANAGEMENT, AND THE PAIN ASSESSMENT PROCESS?YES LATEX QUESTIONNAIRE LATEX ALLERGY : HAVE YOU EVER DEVELOPED ANY TYPE OF REACTION AFTER HANDLING LATEX PRODUCTS SUCH RUBBER GLOVES, CONDOMS, DIAPHRAGMS, BALLOONS, SOCKS, OR UNDERWEAR?YES - PLEASE INDICATE :RUBBER GLOVES KNOWN LATEX ALLERGY LATEX ALLERGY : HAVE YOU EVER DEVELOPED ANY TYPE OF REACTION DURING OR AFTER DENTAL APPOINTMENT, VAGINAL/RECTAL EXAMINATION, SURGICAL PROCEDURE, OR ANY OTHER EXPOSURE?YES LATEX RISK : HAVE YOU EVER HAD ANY DIFFICULTY BREATHING OR HIVES AFTER EATING OR HANDLING ANY FRUITS, OR VEGETABLES; SUCH KIWI, BANANAS, STONE FRUITS, OR CHESTNUTSNO LATEX RISK : DO YOU HAVE A PREVIOUS PERSONAL HISTORY OF MORE THAN NINE SURGERIES, SPINA BIFIDA, OR REPEATED CATHERIZATIONS? NO LATEX RISK : ARE YOU FREQUENTLY EXPOSED TO LATEX PRODUCTS IN YOUR OCCUPATION?NO DATE ASKED : 07/10/2019 CAFFEINE CAFFEINE USE?YES HOW OFTEN AND HOW MUCH? 3 CUPS COFFEE/DAY ADVANCE DIRECTIVE ADVANCE DIRECTIVE DISCUSSED WITH PATIENT:YES PATIENT STATES HE HAS A HCP-- [facility] [phone] ASKED TO BRING A COPY IN FOR OUR FILES ANGLICAN [id number] SYNAGOGUE ALCOHOL SCREENING DID YOU HAVE A DRINK CONTAINING ALCOHOL IN THE PAST YEAR?YES HOW OFTEN DID YOU HAVE A DRINK CONTAINING ALCOHOL IN THE PAST YEAR?MONTHLY OR LESS (1 POINT) POINTS1 INTERPRETATIONNEGATIVE REVIEWED WITH PATIENT 10/05/18 1059 LAS REVIEWED WITH PATIENT 11/23/18 1405 JSREVIEWED WITH PATIENT 01/29/19 1452 NLJREVIEWED WITH PATIENT 02/01/19 1441 NLJREVIEWED WITH PATIENT 07/10/2019 DS. HOSPITALIZATION/MAJOR DIAGNOSTIC PROCEDURE SURGERY RELATED ADHENSION INTESTINAL REVIEW OF SYSTEMS REVIEWED BY: PROVIDER: RENE LOERA . CONSTITUTIONAL: ANY CHANGE IN YOUR MEDICAL CONDITION? NO . CHILLS NO . FEVER NO . INFECTION: DO YOU HAVE NEW INFECTIONS? NO . DO YOU HAVE HISTORY OF MRSA? NO . MUSCULOSKELETAL: ANY NEW PATTERNS OF PAIN OR NUMBNESS? YES, PT STATES THAT PAIN STARTS IN LOW BACK AND RADIATES DOWN LEFT LEG AND RADIATING TO RIGHT SIDE LOW BACK . GASTROENTEROLOGY: ANY NEW CHANGE IN BOWEL CONTROL? NO . GENITOURINARY: ANY NEW CHANGE IN BLADDER CONTROL? NO . IS THERE A CHANCE YOU COULD BE ? NO . HEMATOLOGY/LYMPH: DO YOU TAKE ANY BLOOD THINNERS? (FOR EXAMPLE- COUMADIN, PLAVIX, AGGRENOX, PLATEL, PRADAXA, OR XARELTO) NO . WHEN WAS YOUR LAST DOSE? DATE: TIME: . NEUROLOGY: HAVE YOU FALLEN IN THE PAST 12 MONTHS? NO . ANY NEW EXTREMITY NUMBNESS OR WEAKNESS? NO . CARDIOLOGY: DO YOU HAVE A PACEMAKER OR DEFIBRILLATOR? NO . RESPIRATORY: HAVE YOU BEEN SICK IN THE PAST WEEK? NO . FEVER NO . FLU LIKE SYMPTOMS? NO . COUGH NO . INTEGUMENTARY: DO YOU HAVE ANY RASHES OR OPEN SORES? NO . ALLERGIC/IMMUNO: ARE YOU ALLERGIC TO IV DYE? NO . ANY NEW ALLERGIES? NO . PSYCHIATRIC: DO YOU HAVE THOUGHTS OF HURTING YOURSELF OR SOMEONE ELSE? NO . ARE YOU ABUSED, NEGLECTED, OR IN AN UNSAFE ENVIRONMENT? NO . ENDOCRINOLOGY: ARE YOU DIABETIC? YES, MANAGED WITH ORAL MEDS . OTHER: DO YOU NEED ANY PRESCRIPTIONS? NO . IF YES, PLEASE LIST: ____ . ANY NEW PROBLEMS WITH YOUR MEDICATIONS? NO . WHEN DID YOU LAST EAT? ____ . WHEN DID YOU LAST DRINK? ____ . WHAT DID YOU LAST DRINK? ____ . NAME OF PERSON DRIVING YOU HOME? ____ . DO YOU HAVE ANY OTHER QUESTIONS OR CONCERNS NO . VITAL SIGNS WT 173 LBS, HT 63 IN, BMI 30.64 INDEX, BP 124/71 MM HG, HR 74 /MIN, RR 18 /MIN, TEMP 97.4 F, OXYGEN SAT % 98, SAFE IN ENV? (Y/N) YES, REVIEWED BY: DSB. OLIVIA VEGA. EXAMINATION GENERAL EXAMINATION: GENERALNO ACUTE DISTRESS, WELL NOURISHED AND HYDRATED. PSYCHAPPROPRIATE MOOD AND AFFECT . LUNGS: BIBASILAR CRACKLES NOTED CLEARED WITH COUGH, LUNGS OTHERWISE CLEAR . HEART:NO MURMURS, REGULAR RATE AND RHYTHM. BACK:DENIES POINT TENDERNESS ALONG LUMBAR SPINE, SURROUNDING SKIN SHOWS NO ERYTHEMA, ECCHYMOSIS, INCREASED WARMTH, AND/OR SKIN ERUPTIONS NOTED. POSITIVE MODIFIED SLR ON THE LEFT SIDE . MUSCULOSKELETAL:NOTABLE WEAKNESS OF THE LEFT LOWER EXTREMITY, RIGHT LOWER EXTREMITY WITHIN THE NORMAL LIMITS . ASSESSMENTS INTERVERTEBRAL DISC DISORDERS WITH RADICULOPATHY, LUMBAR REGION - M51.16 (PRIMARY) TREATMENT INTERVERTEBRAL DISC DISORDERS WITH RADICULOPATHY, LUMBAR REGION STOP CYCLOBENZAPRINE HCL TABLET, 10 MG, 1 TABLET NEEDED, ORALLY, THREE TIMES A DAY START TIZANIDINE HCL TABLET, 2 MG, 1 TABLET NEEDED, ORALLY, BID PRN, 30 DAYS, 60 NOTES: LESI [id number] AND REVIEWED WRITTEN MATERIAL ON TIZANIDINE WITH PATIENT, PT ACKNOWLEDGED UNDERSTANDING. DS. CLINICAL NOTES: 51-YEAR-OLD MALE IN FOR POST LESI FOLLOW-UP. GIVEN PRESENTING SYMPTOMS AND RESULTS OF PHYSICAL EXAMINATION RECOMMENDED STOPPING CYCLOBENZAPRINE AND STARTING TIZANIDINE 2 MG TWICE A DAY NEEDED. FURTHER RECOMMENDED LESI L5-S1 WITH POST PROCEDURAL FOLLOW-UP. PATIENT HAS EXPRESSED UNDERSTANDING OF AND WAS IN AGREEMENT WITH TREATMENT PLAN. GIVEN TIME TO ASK QUESTIONS AND EXPRESS CONCERNS. PREVENTIVE MEDICINE PAIN CLINIC TEACHING: THE PATIENT HAS BEEN EDUCATED REGARDING PAIN, THE RISK FOR PAIN, THE IMPORTANCE OF EFFECTIVE PAIN MANAGEMENT, AND THE PAIN ASSESSMENT PROCESS. : REVIEWED AND DISCUSSED TREATMENT PLAN WITH PATIENT, REVIEWED PRE-PROCEDURE INSTRUCTIONS FOR LUMBAR EPIDURAL STEROID INJECTION, PT ACKNOWLEDGED UNDERSTANDING. DS PROCEDURE CODES FA211 ESTABILISHED PATIENT [facility] CHARGE DISPOSITION & COMMUNICATION FOLLOW UP POSTPROCEDURE (REASON: LESI L5-S1) ELECTRONICALLY SIGNED BY ROD STOVER ON 07/11/2019 AT 08:43 AM EST DISCLAIMER : THIS IS A VISIT SUMMARY EXTRACTED FROM THE [employer] CHART. IT IS NOT A COPY OF THE [employer] PROGRESS NOTE. NORMA
== END ==
LOC: M PAIN 11:30
PROVIDERS: ATTEND Family Medicine
DX: M51.16 Intervertebral disc disorders with radiculopathy, lumbar region (principal); K21.9 Gastro-esophageal reflux disease without esophagitis; E11.40 Type 2 diabetes mellitus with diabetic neuropathy, unspecified; Z86.59 Personal history of other mental and behavioral disorders; M79.10 Myalgia, unspecified site; F17.210 Nicotine dependence, cigarettes, uncomplicated; Z88.1 Allergy status to other antibiotic agents; Z88.2 Allergy status to sulfonamides; Z88.8 Allergy status to other drugs, medicaments and biological substances; Z91.018 Allergy to other foods; Z91.040 Latex allergy status; Z79.84 Long term (current) use of oral hypoglycemic drugs; Z79.899 Other long term (current) drug therapy

== ENCOUNTER → 2019-08-15 | Outpatient (CLI) | payer MEDICARE ==
[~2019-08-15] MED LIST changes: +ISOVUE-M 300 61% 15ML VIAL (Q9967) As Ordered ONE; +LIDOCAINE 1% SDV INJ 30 ML VIAL As Ordered ONE; -MONT10TA2 PO; +MONT10TA4 PO; +diazePAM 2 MG TAB As Ordered ONE; +methylPREDNISolone SUSP 40 MG/ML (DEPO-medrol) VIAL (J1030) As Ordered ONE; +oxyCODONE 5MG TAB As Ordered ONE
--- NOTE | 2019-08-15 14:09 | REP ---
C-ARM VIEWS OF LOWER LUMBAR SPINE: CLINICAL HISTORY: Pain. Two C-arm views at the lumbosacral junction are performed. A needle is seen at the lumbosacral junction. 26 seconds of fluoroscopy time utilized. Electronically Signed by Jose Joseph MD 08/15/2019 08:15 P
--- NOTE | 2019-08-22 05:37 | ECWPNPC ---
PATIENT NAME: KALYAN SOLER : 1960 GENDER: MALE VISIT DATE: 08/15/2019 DISCHARGE DATE: 08/15/19 1306 VISIT LOCKED DATE TIME: PHYSICIAN: NIA LOBO MD RESOURCE: NIA LOBO MD REASON FOR APPOINTMENT 1. LESI L5-S1 HISTORY OF PRESENT ILLNESS HISTORY OF PRESENT ILLNESS: PAIN THE PATIENT DESCRIBES THE PAIN... FALL RISK SCREENING: SCREENING :NO FALLS REPORTED IN THE LAST YEAR CURRENT MEDICATIONS TAKING MONTELUKAST SODIUM 10 MG TABLET 1 TABLET ORALLY ONCE A DAY, NOTES: 08/14/192139 TAKING CRESTOR 20 MG TABLET 1 TABLET ORALLY ONCE A DAY, NOTES: 08/14/192139 TAKING OMEPRAZOLE 10 MG CAPSULE DELAYED RELEASE 1 CAPSULE ORALLY ONCE A DAY, NOTES: 08/14/192139 TAKING METFORMIN HCL 500 MG TABLET 2TABS BID ORALLY BID, NOTES: 08/14/192139 TAKING CLONAZEPAM 0.5 MG TABLET 1 TABLET ORALLY BID, NOTES: 08/14/192139 TAKING ESCITALOPRAM OXALATE 10 MG TABLET 1 TABLET ORALLY ONCE A DAY, NOTES: 08/14/191099 TAKING GABAPENTIN 600 MG TABLET 2 TABS ORALLY BID, NOTES: 08/14/192139 TAKING TIZANIDINE HCL 2 MG TABLET 1 TABLET NEEDED ORALLY BID PRN, NOTES: 1 WEEK AGO TAKING MAY USE Duriana , NOTES: 08/14/192139 NOT-TAKING BUPROPION HCL ER (SR) 200 MG TABLET EXTENDED RELEASE 12 HOUR 1 TABLET IN THE MORNING ORALLY ONCE A DAY NOT-TAKING TYLENOL 325 MG TABLET 1 TABLET NEEDED ORALLY EVERY 4 HRS NOT-TAKING GLIPIZIDE 10 MG TABLET 1 TABLET ORALLY ONCE A DAY NOT-TAKING FARXIGA 5 MG TABLET 1 TABLET ORALLY ONCE A DAY NOT-TAKING CELEBREX 200 MG CAPSULE 1 CAPSULE WITH FOOD ORALLY ONCE A DAY MEDICATION LIST REVIEWED AND RECONCILED WITH THE PATIENT PAST MEDICAL HISTORY ACID REFLUX DIABETES MALLITUS DEPRESSION SEASONAL ALLERGIES NEUROPATHY HIGH CHOLESTEROL HIGH BLOOD PRESSURE FOOD POISONING BACK PAIN MYALGIA SPINAL STENOSIS BILATERAL CATARACS ALLERGIES SULFA (FOR ALLERGY USE ONLY): VOMITING/ RASH - SIDE EFFECTS AUGMENTIN: VOMITING/RASH - SIDE EFFECTS WHEAT/FLOUR: DISORIENTATION/ SWELLING/INABILITY TO BREATH - ALLERGY CYMBALTA: LACK OF THERAPEUTIC EFFECT LATEX: ITCHY PATCHES CELEBREX: ANAPHYLAXIS - ALLERGY SURGICAL HISTORY INTESTINAL SURGERY DURING CHILDHOOD CARPAL TUNNEL-ELVA BACK SURGERY 07/2015 COLONOSCOPY 09/10/2018 BILATERAL CATARAC REMOVED WITH LENS INPLANTS 2016 FAMILY HISTORY FATHER: , DIAGNOSED WITH UNSPECIFIED HEART DISEASE MOTHER: , HYPERTENSION, OTHER MALIGNANT NEOPLASM OF UNSPECIFIED SITE SIBLINGS: ALIVE, DIABETES SON(S): ALIVE DAUGHTER(S): ALIVE 3DAUGHTER(S) . MOM HAD MULTIPLE CANCERS\N1 DAUGHTER IS DIABETIC. SOCIAL HISTORY GENERAL: TOBACCO USE ARE YOU A:CURRENT SMOKER ARE YOU INTERESTED IN QUITTING?THINKING ABOUT QUITTING PT IS NOW SMOKING 1 OR 2 ADAY PREVIOUS QUIT ATTEMPTS?YES, WITHIN THE LAST 6 MONTHS. COUNSELED THE PATIENT ON SMOKING CESSATION, EDUCATION [id number]/25/2020 HOW MANY CIGARETTES A DAY DO YOU SMOKE?5 OR LESS PATIENT COUNSELED ON THE DANGERS OF TOBACCO USE AND URGED TO QUIT:07/10/2019 IMMUNIZATION PROGRAM DO YOU FEEL SAFE IN YOUR ENVIRONMENT? YES JJPT IS DISABLES, NO CONCENTRATED SWEETS., NO REGULAR EXERCISE, , SPOUSE. EDUCATION LEVEL OF EDUCATION:NOT FINISHED HIGH SCHOOL DIET: GLUTEN FREE. LANGUAGE LANGUAGES SPOKEN:LEBANESE DOMESTIC VIOLENCE DO YOU FEEL SAFE IN YOUR ENVIRONMENT?YES RECREATIONAL DRUG USE DRUG USE?NO EXERCISE: DISABLES, NO CONCENTRATED SWEETS.. LEARNING BARRIERS / SPECIAL NEEDS BARRIERS TO LEARNING?YES COMMENTS ADHD, ANXIETY,DEPRESSION, TROUBLE CONCENTRATING HEARING IMPAIRED?YES VISION IMPAIRED?NO COGNITIVELY IMPAIRED?NO :HEARING AIDES BILATERAL READINESS TO LEARN?YES LEARNING PREFERENCES?NO LEARNING CAPABILITIES PRESENT?YES EMOTIONAL BARRIERS?YES PT HAS ADHS, ANXIETY AND DEPRESSION, HAS TROUBLE CONCENTRATING SPECIAL DEVICES?YES PT IS USING A CANE :CANE COUNSELLORS NEEDED?NO READS LIPS PAIN CLINIC PFS, CLERGY, PUBLIC HEALTH REFERRALS PFS REFERRAL NEEDED?NO CLERGY REFERRAL NEEDED?NO PUBLIC HEALTH REFERRAL NEEDED?NO WAS THE PROVIDER NOTIFIED OF ANY PERTINENT INFO?YES N/A HAS THE PATIENT BEEN EDUCATED REGARDING HIS/HER PLAN OF CARE?YES HAS THE PATIENT BEEN EDUCATED REGARDING PAIN, THE RISK FOR PAIN, THE IMPORTANCE OF EFFECTIVE PAIN MANAGEMENT, AND THE PAIN ASSESSMENT PROCESS?YES LATEX QUESTIONNAIRE LATEX ALLERGY : HAVE YOU EVER DEVELOPED ANY TYPE OF REACTION AFTER HANDLING LATEX PRODUCTS SUCH RUBBER GLOVES, CONDOMS, DIAPHRAGMS, BALLOONS, SOCKS, OR UNDERWEAR?YES LATEX ALLERGY : HAVE YOU EVER DEVELOPED ANY TYPE OF REACTION DURING OR AFTER DENTAL APPOINTMENT, VAGINAL/RECTAL EXAMINATION, SURGICAL PROCEDURE, OR ANY OTHER EXPOSURE?YES - PLEASE INDICATE :RUBBER GLOVES KNOWN LATEX ALLERGY DATE ASKED : 07/10/2019 LATEX RISK : HAVE YOU EVER HAD ANY DIFFICULTY BREATHING OR HIVES AFTER EATING OR HANDLING ANY FRUITS, OR VEGETABLES; SUCH KIWI, BANANAS, STONE FRUITS, OR CHESTNUTSNO LATEX RISK : DO YOU HAVE A PREVIOUS PERSONAL HISTORY OF MORE THAN NINE SURGERIES, SPINA BIFIDA, OR REPEATED CATHERIZATIONS? NO LATEX RISK : ARE YOU FREQUENTLY EXPOSED TO LATEX PRODUCTS IN YOUR OCCUPATION?NO CAFFEINE CAFFEINE USE?YES HOW OFTEN AND HOW MUCH? 3 CUPS COFFEE/DAY ADVANCE DIRECTIVE ADVANCE DIRECTIVE DISCUSSED WITH PATIENT:YES PATIENT STATES HE HAS A HCP-- [facility] [phone] ASKED TO BRING A COPY IN FOR OUR FILES YARSANISM [id number] RASTAFARI ALCOHOL SCREENING DID YOU HAVE A DRINK CONTAINING ALCOHOL IN THE PAST YEAR?YES HOW OFTEN DID YOU HAVE A DRINK CONTAINING ALCOHOL IN THE PAST YEAR?MONTHLY OR LESS (1 POINT) POINTS1 INTERPRETATIONNEGATIVE REVIEWED WITH PATIENT 10/05/18 1059 LAS REVIEWED WITH PATIENT 11/23/18 1405 JSREVIEWED WITH PATIENT 01/29/19 1452 NLJREVIEWED WITH PATIENT 02/01/19 1441 NLJREVIEWED WITH PATIENT 07/10/2019 DSPRE-SCREENING CALL DONE 08/06/19 EM. HOSPITALIZATION/MAJOR DIAGNOSTIC PROCEDURE SURGERY RELATED ADHENSION INTESTINAL REVIEW OF SYSTEMS REVIEWED BY: PROVIDER: . CONSTITUTIONAL: ANY CHANGE IN YOUR MEDICAL CONDITION? NO . CHILLS NO . FEVER NO . INFECTION: DO YOU HAVE NEW INFECTIONS? NO . DO YOU HAVE HISTORY OF MRSA? NO . MUSCULOSKELETAL: ANY NEW PATTERNS OF PAIN OR NUMBNESS? NO . GASTROENTEROLOGY: ANY NEW CHANGE IN BOWEL CONTROL? NO . GENITOURINARY: ANY NEW CHANGE IN BLADDER CONTROL? NO . IS THERE A CHANCE YOU COULD BE ? NO . HEMATOLOGY/LYMPH: DO YOU TAKE ANY BLOOD THINNERS? (FOR EXAMPLE- COUMADIN, PLAVIX, AGGRENOX, PLATEL, PRADAXA, OR XARELTO) NO . WHEN WAS YOUR LAST DOSE? DATE: TIME: . NEUROLOGY: HAVE YOU FALLEN IN THE PAST 12 MONTHS? NO . ANY NEW EXTREMITY NUMBNESS OR WEAKNESS? YES . CARDIOLOGY: DO YOU HAVE A PACEMAKER OR DEFIBRILLATOR? NO . RESPIRATORY: HAVE YOU BEEN SICK IN THE PAST WEEK? NO . FEVER NO . FLU LIKE SYMPTOMS? NO . COUGH NO . INTEGUMENTARY: DO YOU HAVE ANY RASHES OR OPEN SORES? NO . ALLERGIC/IMMUNO: ARE YOU ALLERGIC TO IV DYE? NO . ANY NEW ALLERGIES? NO . PSYCHIATRIC: DO YOU HAVE THOUGHTS OF HURTING YOURSELF OR SOMEONE ELSE? NO . ARE YOU ABUSED, NEGLECTED, OR IN AN UNSAFE ENVIRONMENT? NO . ENDOCRINOLOGY: ARE YOU DIABETIC? YES - FSBS 167 AT 0800 . OTHER: DO YOU NEED ANY PRESCRIPTIONS? NO . IF YES, PLEASE LIST: ____ . ANY NEW PROBLEMS WITH YOUR MEDICATIONS? NO . WHEN DID YOU LAST EAT? 2030 . WHEN DID YOU LAST DRINK? 08-16-19 0830 . WHAT DID YOU LAST DRINK? WATER . NAME OF PERSON DRIVING YOU HOME? LAI . DO YOU HAVE ANY OTHER QUESTIONS OR CONCERNS NO . VITAL SIGNS WT 173 LBS, HT 63 IN, BMI 30.64 INDEX, BP 136/85 MM HG, HR 77 /MIN, RR 16 /MIN, TEMP 96 F, OXYGEN SAT % 96, REVIEWED BY: LS. ASSESSMENTS INTERVERTEBRAL DISC DISORDERS WITH RADICULOPATHY, LUMBOSACRAL REGION - M51.17 (PRIMARY) PROCEDURES PRE PROCEDURE DIAGNOSIS LUMBAR POST LAMINECTOMY PAIN SYNDROME, LUMBOSACRAL DISC DISORDER WITH RADICULOPATHY POST PROCEDURE DIAGNOSIS LUMBAR POST LAMINECTOMY PAIN SYNDROME , LUMBOSACRAL DISC DISORDER WITH RADICULOPATHY PROCEDURE LUMBAR EPIDURAL STEROID INJECTION UNDER FLUOROSCOPIC GUIDANCE SURGEON DR. NIA LOBO LEAN FACILITATOR NONE ANESTHESIA LOCAL PRE PROCEDURE NOTE THE PATIENT HAS A HISTORY OF CHRONIC LOW BACK PAIN. I EVALUATED THE PATIENT AND REVIEWED THE CHART. I WENT OVER THE RISKS, ALTERNATIVES, AND BENEFITS ASSOCIATED WITH THIS PROCEDURE. THE PATIENT WOULD LIKE TO PROCEED AND GIVE CONSENT TO PERFORMED THE PROCEDURE. THE PATIENT DENIES UNEXPLAINABLE WEIGHT LOSS, FEVER, CHILLS, OR NEW CHANGES IN URINARY OR BOWEL CONTROL. DESCRIPTION OF PROCEDURE THE PATIENT WAS BROUGHT TO THE PROCEDURE ROOM AND PLACED IN THE PRONE POSITION. THE LUMBOSACRAL AREA WAS CLEANED WITH BETADINE SOLUTION AND DRAPED ASEPTICALLY. THE PROCEDURE WAS DONE UNDER STERILE CONDITIONS. I CHECKED LATERALITY AND THE LEVEL WHERE THE PROCEDURE WAS GOING TO BE PERFORMED WITH THE PATIENT AND THE SUPPORTING STAFF AT THE MOMENT OF THE TIME OUT IN THE PROCEDURE ROOM. UNDER FLUOROSCOPIC GUIDANCE, THE TARGET POINT WAS SELECTED AT THE INTERLAMINAR LEVEL OF L5-S1. LIDOCAINE WAS USED TO NUMB THE SKIN AND THE SUBCUTANEOUS TISSUE BELOW IT. EPIDURAL TUOHY NEEDLE, 17-GAUGE, WAS ADVANCED UNDER FLUOROSCOPIC GUIDANCE AND FOLLOWING PATIENT FEEDBACK UNTIL THE EPIDURAL SPACE WAS REACHED, 7 CM DEEP INTO THE SKIN BY THE LOSS OF RESISTANCE TECHNIQUE. ISOVUE M DYE 30%, 0.25 ML, WAS INJECTED SHOWING ADEQUATE SPREAD OF THE DYE. THEN, A SOLUTION OF 3 ML OF NORMAL SALINE WITH DEPO-MEDROL 60 MG WAS INJECTED SLOWLY FOLLOWING PATIENT FEEDBACK. THERE WAS NO EVIDENCE OF BLOOD, PARESTHESIA OR CEREBROSPINAL FLUID DURING THE PROCEDURE. THE PATIENT WAS SENT TO THE RECOVERY ROOM. THE PATIENT WAS MOVING THE EXTREMITIES AND DOING WELL. THERE WAS NO COMPLICATION DURING THE PROCEDURE. FLUOROSCOPY TIME WAS 26 SECONDS. POST PROCEDURE NOTE THE PATIENT WILL BE SEEN IN A FOLLOW UP IN THE NEXT FEW WEEKS. INSTRUCTIONS WERE GIVEN, QUESTIONS WERE ANSWERED, AND THE PATIENT EXPRESSED UNDERSTANDING AND AGREES WITH THE PLAN. I, KIESHA FRANK, DOCUMENTED THE ABOVE INFORMATION ACTING A SCRIBE FOR DR. LOBO. I HAVE REVIEWED THE ABOVE DOCUMENT, WRITTEN BY KIESHA CARRERA AND I VERIFY THAT IT IS ACCURATE. DIAGNOSTIC IMAGING [facility] FLUORO GUIDE SPINE INJECTION (PAIN)[id number] PROCEDURE CODES 07250 LUMBAR/SACRAL W/ IMAGING 6045F RADXPS IN END [id number] PXD DISPOSITION & COMMUNICATION FOLLOW UP 2 WEEKS ELECTRONICALLY SIGNED BY NIA LOBO MD, MD ON 08/21/2019 AT 11:27 AM EDT DISCLAIMER : THIS IS A VISIT SUMMARY EXTRACTED FROM THE [email or web address] CHART. IT IS NOT A COPY OF THE [email or web address] PROGRESS NOTE. MTDD
== END ==
LOC: M PAIN 10:30
PROVIDERS: ATTEND Anesthesiology
DX: M51.17 Intervertebral disc disorders with radiculopathy, lumbosacral region (principal); E11.9 Type 2 diabetes mellitus without complications; F17.210 Nicotine dependence, cigarettes, uncomplicated; Z79.84 Long term (current) use of oral hypoglycemic drugs; Z79.899 Other long term (current) drug therapy; Z88.1 Allergy status to other antibiotic agents; Z88.2 Allergy status to sulfonamides; Z88.8 Allergy status to other drugs, medicaments and biological substances; Z91.018 Allergy to other foods; Z91.040 Latex allergy status
CPT/HCPCS: 62323; J1030; Q9967

== ENCOUNTER → 2019-12-04 | Outpatient (CLI) | payer MEDICARE ==
[~2019-12-04] MED LIST changes: +CYCL-707; -CYCL10TA; -ISOVUE-M 300 61% 15ML VIAL (Q9967) As Ordered ONE; -LIDOCAINE 1% SDV INJ 30 ML VIAL As Ordered ONE; -diazePAM 2 MG TAB As Ordered ONE; -methylPREDNISolone SUSP 40 MG/ML (DEPO-medrol) VIAL (J1030) As Ordered ONE; -oxyCODONE 5MG TAB As Ordered ONE
--- NOTE | 2019-12-06 00:20 | ECWPNPC ---
PATIENT NAME: KALYAN SOLER : 1960 GENDER: MALE VISIT DATE: 12/04/2019 DISCHARGE DATE: 12/04/19 1204 VISIT LOCKED DATE TIME: PHYSICIAN: TIFFANIE MEDINA RESOURCE: TIFFANIE MEDINA REASON FOR APPOINTMENT 1. BOTH LEGS IN PAIN HISTORY OF PRESENT ILLNESS GENERAL: -59-YEAR-OLD MALE IN FOR CHRONIC PAIN FOLLOW-UP. HE RATES HIS PAIN CURRENTLY AT A 10 OUT OF 10 AND DESCRIBES IT INTERMITTENT. HE HAD A LUMBAR EPIDURAL PERFORMED IN AUGUST AND ADMITS TO 2 MONTHS OF RELIEF OF PAIN WITH THAT EPIDURAL. FALL RISK SCREENING: SCREENING :NO FALLS REPORTED IN THE LAST YEAR PAIN SCREENING: PATIENT HAS A COMPLAINT OF ACUTE OR CHRONIC PAIN :YES 12/04/19 INTENSITY OF PAIN (SCALE OF 1 TO 10):10 WHAT DOES YOUR PAIN FEEL LIKE:INTERMITTENT, SHARP, STABBING PAIN IS INCREASED BY: WALKING, ACTIVITY PAIN IS DECREASED BY: ELEVATE LEGS NURSING NOTE: -. PAIN CENTER INTAKE QUESTIONS: DO YOU HAVE A HISTORY OF MRSA? :NO DO YOU TAKE A BLOOD THINNERS? :NO DO YOU HAVE ANY BLEEDING DISORDERS? :NO ANY NEW NUMBNESS OR WEAKNESS IN YOUR LEGS OR ARMS? :NO ANY PACEMAKER,DEFIBRILLATOR, OR DORSAL COLUMN STIMULATOR? :NO DO YOU HAVE ANY RASHES OR OPEN SORES? :NO ARE YOU ALLERGIC TO IV DYE? :NO ARE YOU DIABETIC? :YES ANY NEW PROBLEMS WITH YOUR MEDICATIONS? :NO HAVE YOU RECEIVED A VACCINE IN THE PAST 30 DAYS? :NO DO YOU PLAN TO RECEIVE A VACCINE IN THE NEXT 21 DAYS? :NO DO YOU NEED ANY PRESCRIPTION? :NO DO YOU TAKE ANY IMMUNOSUPPRESSIVE MEDICATIONS? :NO IS THERE A CHANCE YOU COULD BE ? :NO ARE YOU BREAST FEEDING? :NO CURRENT MEDICATIONS TAKING OMEPRAZOLE 10 MG CAPSULE DELAYED RELEASE 1 CAPSULE ORALLY ONCE A DAY TAKING METFORMIN HCL 500 MG TABLET 2TABS BID ORALLY BID TAKING CLONAZEPAM 0.5 MG TABLET 1 TABLET ORALLY BID TAKING ESCITALOPRAM OXALATE 10 MG TABLET 1 TABLET ORALLY ONCE A DAY TAKING GABAPENTIN 600 MG TABLET 2 TABS ORALLY BID TAKING MAY USE MEDICAL MARIJUANNA TAKING ATORVASTATIN CALCIUM 10 MG TABLET 1 TABLET ORALLY ONCE A DAY NOT-TAKING MONTELUKAST SODIUM 10 MG TABLET 1 TABLET ORALLY ONCE A DAY NOT-TAKING CRESTOR 20 MG TABLET 1 TABLET ORALLY ONCE A DAY NOT-TAKING TIZANIDINE HCL 2 MG TABLET 1 TABLET NEEDED ORALLY BID PRN NOT-TAKING BUPROPION HCL ER (SR) 200 MG TABLET EXTENDED RELEASE 12 HOUR 1 TABLET IN THE MORNING ORALLY ONCE A DAY NOT-TAKING TYLENOL 325 MG TABLET 1 TABLET NEEDED ORALLY EVERY 4 HRS NOT-TAKING GLIPIZIDE 10 MG TABLET 1 TABLET ORALLY ONCE A DAY NOT-TAKING FARXIGA 5 MG TABLET 1 TABLET ORALLY ONCE A DAY NOT-TAKING CELEBREX 200 MG CAPSULE 1 CAPSULE WITH FOOD ORALLY ONCE A DAY MEDICATION LIST REVIEWED AND RECONCILED WITH THE PATIENT PAST MEDICAL HISTORY ACID REFLUX DIABETES MALLITUS DEPRESSION SEASONAL ALLERGIES NEUROPATHY HIGH CHOLESTEROL HIGH BLOOD PRESSURE FOOD POISONING BACK PAIN MYALGIA SPINAL STENOSIS BILATERAL CATARACS ALLERGIES SULFA (FOR ALLERGY USE ONLY): VOMITING/ RASH - SIDE EFFECTS AUGMENTIN: VOMITING/RASH - SIDE EFFECTS WHEAT/FLOUR: DISORIENTATION/ SWELLING/INABILITY TO BREATH - ALLERGY CYMBALTA: LACK OF THERAPEUTIC EFFECT LATEX: ITCHY PATCHES CELEBREX: ANAPHYLAXIS - ALLERGY SURGICAL HISTORY INTESTINAL SURGERY DURING CHILDHOOD CARPAL TUNNEL-ELVA BACK SURGERY 07/2015 COLONOSCOPY 09/10/2018 BILATERAL CATARAC REMOVED WITH LENS INPLANTS 2016 FAMILY HISTORY FATHER: , DIAGNOSED WITH UNSPECIFIED HEART DISEASE MOTHER: , HYPERTENSION, OTHER MALIGNANT NEOPLASM OF UNSPECIFIED SITE SIBLINGS: ALIVE, DIABETES SON(S): ALIVE DAUGHTER(S): ALIVE 3DAUGHTER(S) . MOM HAD MULTIPLE CANCERS\N1 DAUGHTER IS DIABETIC. SOCIAL HISTORY GENERAL: TOBACCO USE ARE YOU A:CURRENT SMOKER ARE YOU INTERESTED IN QUITTING?THINKING ABOUT QUITTING PT IS NOW SMOKING 1 OR 2 ADAY PREVIOUS QUIT ATTEMPTS?YES, WITHIN THE LAST 6 MONTHS. COUNSELED THE PATIENT ON SMOKING CESSATION, EDUCATION [id number]/24/2020 HOW MANY CIGARETTES A DAY DO YOU SMOKE?5 OR LESS PATIENT COUNSELED ON THE DANGERS OF TOBACCO USE AND URGED TO QUIT:07/10/2019 LATEX QUESTIONNAIRE LATEX ALLERGY : HAVE YOU EVER DEVELOPED ANY TYPE OF REACTION AFTER HANDLING LATEX PRODUCTS SUCH RUBBER GLOVES, CONDOMS, DIAPHRAGMS, BALLOONS, SOCKS, OR UNDERWEAR?YES LATEX ALLERGY : HAVE YOU EVER DEVELOPED ANY TYPE OF REACTION DURING OR AFTER DENTAL APPOINTMENT, VAGINAL/RECTAL EXAMINATION, SURGICAL PROCEDURE, OR ANY OTHER EXPOSURE?YES - PLEASE INDICATE :RUBBER GLOVES KNOWN LATEX ALLERGY DATE ASKED : 07/10/2019 LATEX RISK : HAVE YOU EVER HAD ANY DIFFICULTY BREATHING OR HIVES AFTER EATING OR HANDLING ANY FRUITS, OR VEGETABLES; SUCH KIWI, BANANAS, STONE FRUITS, OR CHESTNUTSNO LATEX RISK : DO YOU HAVE A PREVIOUS PERSONAL HISTORY OF MORE THAN NINE SURGERIES, SPINA BIFIDA, OR REPEATED CATHERIZATIONS? NO LATEX RISK : ARE YOU FREQUENTLY EXPOSED TO LATEX PRODUCTS IN YOUR OCCUPATION?NO ALCOHOL SCREENING DID YOU HAVE A DRINK CONTAINING ALCOHOL IN THE PAST YEAR?YES HOW OFTEN DID YOU HAVE A DRINK CONTAINING ALCOHOL IN THE PAST YEAR?MONTHLY OR LESS (1 POINT) POINTS1 INTERPRETATIONNEGATIVE RECREATIONAL DRUG USE DRUG USE?NO CAFFEINE CAFFEINE USE?YES HOW OFTEN AND HOW MUCH? 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 EXERCISE: DISABLES, NO CONCENTRATED SWEETS.. IMMUNIZATION PROGRAM DO YOU FEEL SAFE IN YOUR ENVIRONMENT? YES JJPT IS DISABLES, NO CONCENTRATED SWEETS., NO REGULAR EXERCISE, , SPOUSE. PAIN CLINIC PFS, CLERGY, PUBLIC HEALTH REFERRALS PFS REFERRAL NEEDED?NO CLERGY REFERRAL NEEDED?NO PUBLIC HEALTH REFERRAL NEEDED?NO WAS THE PROVIDER NOTIFIED OF ANY PERTINENT INFO?YES N/A HAS THE PATIENT BEEN EDUCATED REGARDING HIS/HER PLAN OF CARE?YES HAS THE PATIENT BEEN EDUCATED REGARDING PAIN, THE RISK FOR PAIN, THE IMPORTANCE OF EFFECTIVE PAIN MANAGEMENT, AND THE PAIN ASSESSMENT PROCESS?YES ADVANCE DIRECTIVE ADVANCE DIRECTIVE DISCUSSED WITH PATIENT:YES PATIENT STATES HE HAS A HCP-- [facility] [phone] ASKED TO BRING A COPY IN FOR OUR FILES REVIEWED WITH PATIENT 10/05/18 1059 LAS REVIEWED WITH PATIENT 11/23/18 1405 JSREVIEWED WITH PATIENT 01/29/19 1452 NLJREVIEWED WITH PATIENT 02/01/19 1441 NLJREVIEWED WITH PATIENT 07/10/2019 DSPRE-SCREENING CALL DONE 08/06/19 EM. HOSPITALIZATION/MAJOR DIAGNOSTIC PROCEDURE SURGERY RELATED ADHENSION INTESTINAL REVIEW OF SYSTEMS CONSTITUTIONAL: ANY RECENT FEVER NO . CHILLS NO . WEIGHT CHANGE OF UNKNOWN REASONS NO . GASTROENTEROLOGY: NEW UNEXPLAINABLE CHANGES IN BOWEL CONTROL NO . CONSTIPATION NO . GENITOURINARY: ANY NEW CHANGE IN BLADDER CONTROL? NO . NEUROLOGY: NEW ONSET DIZZINESS OR NEUROLOGICAL CHANGES NOT MENTIONED NO . NEW NUMBNESS OR PAIN PATTERNS NOT MENTIONED AND PERTINENT TO TODAY'S VISIT NO . CARDIOLOGY: NEW CHEST PRESSURE NO . NEW CHEST PAIN NO . RESPIRATORY: UNEXPLAINABLE COUGH NO . NEW SHORTNESS OF BREATH NO . VITAL SIGNS WT 165.2 LBS, HT 63 IN, BMI 29.26 INDEX, BP 125/87 MM HG, HR 75 /MIN, RR 16 /MIN, TEMP 96.5 F, OXYGEN SAT % 96%, NA INITIALS SC 11:08. EXAMINATION GENERAL EXAMINATION: GENERALNO ACUTE DISTRESS, WELL NOURISHED AND HYDRATED. PSYCHAPPROPRIATE MOOD AND AFFECT . LUNGS:CLEAR TO AUSCULTATION BILATERALLY, NO WHEEZES, RHONCHI, RALES. HEART:NO MURMURS, REGULAR RATE AND RHYTHM. BACK:POINT TENDER ALONG LOWER LUMBAR SPINE, SURROUNDING SKIN SHOWS NO ERYTHEMA, ECCHYMOSIS, INCREASED WARMTH, AND/OR SKIN ERUPTIONS NOTED. POSITIVE MODIFIED SLR RIGHT SIDE . MUSCULOSKELETAL:WEAKNESS OF THE LOWER EXTREMITIES NOTED . ASSESSMENTS INTERVERTEBRAL DISC DISORDERS WITH RADICULOPATHY, LUMBOSACRAL REGION - M51.17 (PRIMARY) TREATMENT INTERVERTEBRAL DISC DISORDERS WITH RADICULOPATHY, LUMBOSACRAL REGION NOTES: LESI L4-L5 L5-S1. CLINICAL NOTES: 59-YEAR-OLD MALE IN FOR CHRONIC PAIN FOLLOW-UP. GIVEN PRESENTING SYMPTOMS AND RESULTS OF PHYSICAL EXAMINATION RECOMMENDED LESI L4-L5 L5-S1 WITH POSTPROCEDURAL FOLLOW-UP. PATIENT HAS EXPRESSED UNDERSTANDING OF AND WAS IN AGREEMENT WITH TREATMENT PLAN. GIVEN TIME TO ASK QUESTIONS AND EXPRESS CONCERNS. PREVENTIVE MEDICINE PAIN CLINIC TEACHING: PROCEDURE TEACHING PROCEDURE HANDOUT FOR EPIDURAL STEROID INJECTION PRINTED AND REVIEWED WITH PATIENT. PRE PROCEDURE INSTRUCTIONS REVIEWED WITH PATIENT. PATIENT VERBALIZES UNDERSTANDING. LAS. PROCEDURE CODES FA211 ESTABILISHED PATIENT [facility] CHARGE DISPOSITION & COMMUNICATION FOLLOW UP POSTPROCEDURE (REASON: LESI L4-L5 L5-S1) ELECTRONICALLY SIGNED BY ROD STOVER ON 12/05/2019 AT 08:06 AM EDT DISCLAIMER : THIS IS A VISIT SUMMARY EXTRACTED FROM THE [employer] CHART. IT IS NOT A COPY OF THE [employer] PROGRESS NOTE. NORMA
== END ==
LOC: M PAIN 11:30
PROVIDERS: ATTEND Family Medicine
DX: M51.17 Intervertebral disc disorders with radiculopathy, lumbosacral region (principal)

== ENCOUNTER → 2019-12-16 | Outpatient (CLI) | payer MEDICARE | LOC: M LABSMTC 10:53 | PROVIDERS: ATTEND Anesthesiology | DX: Z11.59 Encounter for screening for other viral diseases (principal) | CPT/HCPCS: C9803; U0003 ==

== ENCOUNTER → 2019-12-19 | Outpatient (CLI) | payer MEDICARE ==
[~2019-12-19] MED LIST changes: +ISOVUE-M 300 61% 15ML VIAL As Ordered ONE; +LIDOCAINE 1% SDV 30ML VIAL As Ordered ONE; +diazePAM 2 MG TAB As Ordered ONE; +methylPREDNISolone SUSP 40MG/ML 1ML VIAL (DEPO MEDROL) As Ordered ONE; +oxyCODONE 5MG TAB As Ordered ONE
--- NOTE | 2019-12-19 23:59 | REP ---
C-ARM VIEWS LUMBAR SPINE: Two C-arm views of lumbar spine are performed during epidural injection performed by Dr. Kwok. Needle is seen at the L5 level, and a small amount of contrast is injected. 12 seconds fluoroscopy time utilized. Electronically Signed by Jose Joseph MD 12/22/2019 10:41 P
--- NOTE | 2019-12-21 01:17 | ECWPNPC ---
PATIENT NAME: KALYAN SOLER : 1960 GENDER: MALE VISIT DATE: 12/19/2019 DISCHARGE DATE: 12/19/19 1511 VISIT LOCKED DATE TIME: PHYSICIAN: NIA LOBO MD RESOURCE: NIA LOBO MD REASON FOR APPOINTMENT 1. LESI L5-S1 HISTORY OF PRESENT ILLNESS GENERAL: -. FALL RISK SCREENING: SCREENING :NO FALLS REPORTED IN THE LAST YEAR PAIN SCREENING: PATIENT HAS A COMPLAINT OF ACUTE OR CHRONIC PAIN :YES LOCATION OF PAIN:LOW BACK, LEFT HIP, RIGHT HIP, LEG(S) INTENSITY OF PAIN (SCALE OF 1 TO 10):10 AVERAGE 9-10 WHAT DOES YOUR PAIN FEEL LIKE:ACHING, BURNING, CONTINOUS, SHARP, STABBING, TENDER, THROBBING, SORE, SHOOTING "ELECTRIC SHOCK AND VIBRATION SENSATION IN LEGS" DURATION:CONTINOUS, CONSTANT, STEADY, AWAKENS FROM SLEEP PAIN IS INCREASED BY:ACTIVITIES, PROLONGED STANDING SITTING PAIN IS DECREASED BY: MEDS, MEDICAL MARIJUANA, SOMETIMES HEAT BUT FOR VERY SHORT PERIOD OF TIME NURSING NOTE: -. PAIN CENTER INTAKE QUESTIONS: DO YOU HAVE A HISTORY OF MRSA? :NO DO YOU TAKE A BLOOD THINNERS? :NO DO YOU HAVE ANY BLEEDING DISORDERS? :NO ANY NEW NUMBNESS OR WEAKNESS IN YOUR LEGS OR ARMS? :NO ANY PACEMAKER,DEFIBRILLATOR, OR DORSAL COLUMN STIMULATOR? :NO DO YOU HAVE ANY RASHES OR OPEN SORES? :NO ARE YOU ALLERGIC TO IV DYE? :NO ARE YOU DIABETIC? :YES ANY NEW PROBLEMS WITH YOUR MEDICATIONS? :NO HAVE YOU RECEIVED A VACCINE IN THE PAST 30 DAYS? :NO DO YOU PLAN TO RECEIVE A VACCINE IN THE NEXT 21 DAYS? :NO DO YOU TAKE ANY IMMUNOSUPPRESSIVE MEDICATIONS? :NO ANY HISTORY OF SEIZURES? :NO ANY HISTORY OF CARDIAC ISSUES OR EVENTS? :NO DO YOU HAVE SLEEP APNEA? :NO ANY RECENT HEAD INJURY? :NO DO YOU HAVE ANY NEW INFECTIONS? :YES RECENT SINUS AND LEFT EAR INFECTION-COMPLETED ANTIBIOTIC 12/12 IS THERE A CHANCE YOU COULD BE ? :NO ARE YOU BREAST FEEDING? :NO WHEN DID YOU LAST EAT? : -1800 12/18/19 WHEN DID YOU LAST DRINK? : -1015 12/19/19 WHAT DID YOU LAST DRINK? : WATER NAME OF PERSON DRIVING YOU HOME? : -[facility] DO YOU HAVE ANY OTHER QUESTIONS OR CONCERNS? : NONE CURRENT MEDICATIONS TAKING OMEPRAZOLE 10 MG CAPSULE DELAYED RELEASE 1 CAPSULE ORALLY ONCE A DAY, NOTES: 12/18/191029 TAKING METFORMIN HCL 500 MG TABLET 2TABS BID ORALLY BID, NOTES: 12/18/192099 TAKING CLONAZEPAM 0.5 MG TABLET 1 TABLET ORALLY BID, NOTES: 12/18/192099 TAKING ESCITALOPRAM OXALATE 10 MG TABLET 1 TABLET ORALLY ONCE A DAY, NOTES: 12/18/191029 TAKING GABAPENTIN 600 MG TABLET 2 TABS ORALLY BID, NOTES: 12/18/192099 TAKING MAY USE MEDICAL MARIJUANNA , NOTES: 12/18/192099 TAKING ATORVASTATIN CALCIUM 10 MG TABLET 1 TABLET ORALLY ONCE A DAY, NOTES: 12/18/192099 NOT-TAKING MONTELUKAST SODIUM 10 MG TABLET 1 TABLET ORALLY ONCE A DAY NOT-TAKING CRESTOR 20 MG TABLET 1 TABLET ORALLY ONCE A DAY NOT-TAKING TIZANIDINE HCL 2 MG TABLET 1 TABLET NEEDED ORALLY BID PRN NOT-TAKING BUPROPION HCL ER (SR) 200 MG TABLET EXTENDED RELEASE 12 HOUR 1 TABLET IN THE MORNING ORALLY ONCE A DAY NOT-TAKING TYLENOL 325 MG TABLET 1 TABLET NEEDED ORALLY EVERY 4 HRS NOT-TAKING GLIPIZIDE 10 MG TABLET 1 TABLET ORALLY ONCE A DAY NOT-TAKING FARXIGA 5 MG TABLET 1 TABLET ORALLY ONCE A DAY NOT-TAKING CELEBREX 200 MG CAPSULE 1 CAPSULE WITH FOOD ORALLY ONCE A DAY MEDICATION LIST REVIEWED AND RECONCILED WITH THE PATIENT PAST MEDICAL HISTORY ACID REFLUX DIABETES MALLITUS DEPRESSION SEASONAL ALLERGIES NEUROPATHY HIGH CHOLESTEROL HIGH BLOOD PRESSURE FOOD POISONING BACK PAIN MYALGIA SPINAL STENOSIS BILATERAL CATARACS ALLERGIES SULFA (FOR ALLERGY USE ONLY): VOMITING/ RASH - SIDE EFFECTS AUGMENTIN: VOMITING/RASH - SIDE EFFECTS WHEAT/FLOUR: DISORIENTATION/ SWELLING/INABILITY TO BREATH - ALLERGY CYMBALTA: LACK OF THERAPEUTIC EFFECT LATEX: ITCHY PATCHES CELEBREX: ANAPHYLAXIS - ALLERGY SURGICAL HISTORY INTESTINAL SURGERY DURING CHILDHOOD CARPAL TUNNEL-ELVA BACK SURGERY 07/2015 COLONOSCOPY 09/10/2018 BILATERAL CATARAC REMOVED WITH LENS INPLANTS 2016 FAMILY HISTORY FATHER: , DIAGNOSED WITH UNSPECIFIED HEART DISEASE MOTHER: , HYPERTENSION, OTHER MALIGNANT NEOPLASM OF UNSPECIFIED SITE SIBLINGS: ALIVE, DIABETES SON(S): ALIVE DAUGHTER(S): ALIVE 3DAUGHTER(S) . MOM HAD MULTIPLE CANCERS\\N1 DAUGHTER IS DIABETIC. SOCIAL HISTORY GENERAL: TOBACCO USE ARE YOU A:CURRENT SMOKER ARE YOU INTERESTED IN QUITTING?THINKING ABOUT QUITTING PT IS NOW SMOKING 1 OR 2/DAY PREVIOUS QUIT ATTEMPTS?YES, WITHIN THE LAST 6 MONTHS. COUNSELED THE PATIENT ON SMOKING CESSATION, EDUCATION [id number]/24/2020 HOW MANY CIGARETTES A DAY DO YOU SMOKE?5 OR LESS PATIENT COUNSELED ON THE DANGERS OF TOBACCO USE AND URGED TO QUIT:12/18/2019 LATEX QUESTIONNAIRE LATEX ALLERGY : HAVE YOU EVER DEVELOPED ANY TYPE OF REACTION AFTER HANDLING LATEX PRODUCTS SUCH RUBBER GLOVES, CONDOMS, DIAPHRAGMS, BALLOONS, SOCKS, OR UNDERWEAR?YES - PLEASE INDICATE :RUBBER GLOVES KNOWN LATEX ALLERGY LATEX ALLERGY : HAVE YOU EVER DEVELOPED ANY TYPE OF REACTION DURING OR AFTER DENTAL APPOINTMENT, VAGINAL/RECTAL EXAMINATION, SURGICAL PROCEDURE, OR ANY OTHER EXPOSURE?YES LATEX RISK : HAVE YOU EVER HAD ANY DIFFICULTY BREATHING OR HIVES AFTER EATING OR HANDLING ANY FRUITS, OR VEGETABLES; SUCH KIWI, BANANAS, STONE FRUITS, OR CHESTNUTSNO LATEX RISK : DO YOU HAVE A PREVIOUS PERSONAL HISTORY OF MORE THAN NINE SURGERIES, SPINA BIFIDA, OR REPEATED CATHERIZATIONS? NO LATEX RISK : ARE YOU FREQUENTLY EXPOSED TO LATEX PRODUCTS IN YOUR OCCUPATION?NO DATE ASKED : 12/18/2019 ALCOHOL SCREENING DID YOU HAVE A DRINK CONTAINING ALCOHOL IN THE PAST YEAR?YES HOW OFTEN DID YOU HAVE A DRINK CONTAINING ALCOHOL IN THE PAST YEAR?MONTHLY OR LESS (1 POINT) POINTS1 INTERPRETATIONNEGATIVE RECREATIONAL DRUG USE DRUG USE?NO CAFFEINE CAFFEINE USE?YES HOW OFTEN AND HOW MUCH? 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 EXERCISE: DISABLES, NO CONCENTRATED SWEETS.. IMMUNIZATION PROGRAM DO YOU FEEL SAFE IN YOUR ENVIRONMENT? YES JJPT IS DISABLES, NO CONCENTRATED SWEETS., NO REGULAR EXERCISE, , SPOUSE. PAIN CLINIC PFS, CLERGY, PUBLIC HEALTH REFERRALS PFS REFERRAL NEEDED?NO CLERGY REFERRAL NEEDED?NO PUBLIC HEALTH REFERRAL NEEDED?NO HAS THE PATIENT BEEN EDUCATED REGARDING HIS/HER PLAN OF CARE?YES HAS THE PATIENT BEEN EDUCATED REGARDING PAIN, THE RISK FOR PAIN, THE IMPORTANCE OF EFFECTIVE PAIN MANAGEMENT, AND THE PAIN ASSESSMENT PROCESS?YES ADVANCE DIRECTIVE ADVANCE DIRECTIVE DISCUSSED WITH PATIENT:YES PATIENT STATES HE HAS A HCP-- [facility] [phone] ASKED TO BRING A COPY IN FOR OUR FILES HOSPITALIZATION/MAJOR DIAGNOSTIC PROCEDURE SURGERY RELATED ADHENSION INTESTINAL VITAL SIGNS WT 164.2 LBS, HT 63 IN, BMI 29.08 INDEX, BP 117/76 MM HG, HR 61 /MIN, RR 16 /MIN, TEMP 96.2 F, OXYGEN SAT % 98%, SAFE IN ENV? (Y/N) YES, NA INITIALS SC 13:14, REVIEWED BY: SUSY. EXAMINATION GENERAL EXAMINATION: THE PATIENT IS ALERT, ORIENTED TIMES THREE AND COOPERATIVE. HEART SHOWS REGULAR RHYTHM, NO MURMURS AND NO GALLOPS. LUNGS ARE CLEAR TO AUSCULTATION. ASSESSMENTS INTERVERTEBRAL DISC DISORDERS WITH RADICULOPATHY, LUMBOSACRAL REGION - M51.17 (PRIMARY) TREATMENT INTERVERTEBRAL DISC DISORDERS WITH RADICULOPATHY, LUMBOSACRAL REGION [facility] FLUORO GUIDE SPINE INJECTION (PAIN)[id number] MEDICATION: VALIUM TAB 2MG ORALLY (DIAZEPAM)ÁNGELA LUNA 12/19/2019 1:47:35 PM > VERIFIED VISHNU LEPE RN 12/19/2019 1:54:37 PM > LOT [id number]. EXP. JUN 2020. GIVEN 1349. MEDICATION: OXYCODONE HCL TAB 10MG ORALLYÁNGELA LUNA 12/19/2019 1:47:51 PM > VERIFIED VISHNU LEPE RN 12/19/2019 1:55:28 PM > LOT [id number]. EXP. 07/2021. GIVEN 1349. PROCEDURES PAIN NURSING RECORD PRE-PROCEDURE IV SITE N/A, PRE-PROCEDURE ORAL MEDICATIONS INSTRUCTED REGARDING POTENTIAL DIZZINESS AND DROWSINESS AFTER SEDATION MEDICATIONS. ASSISTED TO STRETCHER. SIDE RAILS UP. CALL FOX PLACED IN REACH. INSTRUCTED TO CALL FOR ASSISTANCE. VERBALIZED UNDERSTANDING. PROCEDURE IN ROOM 1420, PHYSICIAN IN ROOM 1439, START 1443, FINISH 1448, PHYSICIAN OUT OF ROOM 1450, OUT OF ROOM 1457, STEROID DEPOMEDROL, O2 RA, ECG OTHER SINUS BRADYCARDIA, PATIENT SHIELDED YES, SAFETY STRAP YES, PREP BETADINE Ivan LEPE RN, IV INFUSED N/A, DRESSING TEGADERM DR. LOBO LOC: 1405 1. ALERT, ORIENTED, 1420 1. ALERT, ORIENTED, 1435 1. ALERT, ORIENTED, 1450 1. ALERT, ORIENTED, 1505 , 1. ALERT, ORIENTED RESP: 1405 1. REGULAR, NO DYSPNEA, 1420 1. REGULAR, NO DYSPNEA, 1435 1. REGULAR, NO DYSPNEA, 1450 1. REGULAR, NO DYSPNEA, 1505, 1. REGULAR, NO DYSPNEA COLOR: 1405 1. PINK, 1420 1. PINK, 1435 1. PINK, 1450 1. PINK, 1505, 1. PINK SKIN: 1405 1. WARM, DRY, 1420 1. WARM, DRY, 1435 1. WARM, DRY, 1450 1. WARM, DRY, 1505, 1. WARM, DRY POSITION: 1405 , 2. SUPINE 1420 , 1. PRONE 1435, 1. PRONE 1450, 1. PRONE 1505, 4. OTHER - SITTING VITALS: 1405 112/72 64-18 94% 1420 125/72 58-16 96% 1435 125/72 60-18 94% 1450 121/78 54-18 97% 1505 127/82 64-16 99% DISCHARGE: POST PAIN 6-7/10, DRESSING SITE DRY AND INTACT, IV N/A, GAIT STEADY USES CANE, TEACHING COMPLETED, PATIENT ACKNOWLEDGES UNDERSTANDING YES, PATIENT DISCHARGED AT 1508 PRE PROCEDURE DIAGNOSIS LUMBOSACRAL DISC DISORDER WITH RADICULOPATHY POST PROCEDURE DIAGNOSIS LUMBOSACRAL DISC DISORDER WITH RADICULOPATHY PROCEDURE LUMBAR EPIDURAL STEROID INJECTION UNDER FLUOROSCOPIC GUIDANCE SURGEON DR. NIA LOBO BUTT PRESSER NONE ANESTHESIA LOCAL PRE PROCEDURE NOTE THE PATIENT HAS A HISTORY OF CHRONIC LOW BACK PAIN. I EVALUATED THE PATIENT AND REVIEWED THE CHART. I WENT OVER THE RISKS, ALTERNATIVES, AND BENEFITS ASSOCIATED WITH THIS PROCEDURE. I DISCUSSED THAT THE USE OF STEROIDS MAY CONTRIBUTE TO IMMUNOSUPPRESSION OF THE PATIENT'S BODY AGAINST INFECTIONS SUCH COVID-19. THE PATIENT IS AWARE OF THE POTENTIAL COMPLICATIONS ASSOCIATED WITH THIS VIRUS, INCLUDING, BUT NOT LIMITED TO, . I DISCUSSED THE USE OF DEXAMETHASONE INSTEAD OF DEPO-MEDROL; HOWEVER, THE PATIENT WOULD LIKE TO MOVE FORWARD WITH DEPO-MEDROL. THE PATIENT WOULD LIKE TO PROCEED AND GIVE CONSENT TO PERFORMED THE PROCEDURE. THE PATIENT DENIES UNEXPLAINABLE WEIGHT LOSS, FEVER, CHILLS, OR NEW CHANGES IN URINARY OR BOWEL CONTROL. THE PATIENT IS COVID-19 NEGATIVE DESCRIPTION OF PROCEDURE THE PATIENT WAS BROUGHT TO THE PROCEDURE ROOM AND PLACED IN THE PRONE POSITION. THE LUMBOSACRAL AREA WAS CLEANED WITH BETADINE SOLUTION AND DRAPED ASEPTICALLY. THE PROCEDURE WAS DONE UNDER STERILE CONDITIONS. A TIMEOUT WAS PERFORMED WHERE LATERALITY AND THE SITE OF THE PROCEDURE WERE CHECKED AND CONFIRMED WITH EVERYONE IN THE ROOM. UNDER FLUOROSCOPIC GUIDANCE, THE TARGET POINT WAS SELECTED AT THE INTERLAMINAR LEVEL OF L5-S1. LIDOCAINE WAS USED TO NUMB THE SKIN AND THE SUBCUTANEOUS TISSUE BELOW IT. EPIDURAL TUOHY NEEDLE, 17-GAUGE, WAS ADVANCED UNDER FLUOROSCOPIC GUIDANCE AND FOLLOWING PATIENT FEEDBACK UNTIL THE EPIDURAL SPACE WAS REACHED 7 CM DEEP INTO THE SKIN BY THE LOSS OF RESISTANCE TECHNIQUE. ISOVUE-M DYE 30%, 0.25 ML, WAS INJECTED SHOWING ADEQUATE SPREAD OF THE DYE. THEN, A SOLUTION OF 3 ML OF NORMAL SALINE WITH DEPO-MEDROL 80 MG WAS INJECTED SLOWLY FOLLOWING PATIENT FEEDBACK. THE MEDICATIONS WERE VERIFIED WITH THE NURSE. THERE WAS NO EVIDENCE OF BLOOD, PARESTHESIA OR CEREBROSPINAL FLUID DURING THE PROCEDURE. THE PATIENT WAS SENT TO THE RECOVERY ROOM. THE PATIENT WAS MOVING THE EXTREMITIES AND DOING WELL. THERE WERE NO COMPLICATIONS DURING THE PROCEDURE. ESTIMATED BLOOD LOSS WAS LESS THAN 5 ML. FLUOROSCOPY TIME WAS 12 SECONDS POST PROCEDURE NOTE THE PATIENT WILL BE SEEN IN A FOLLOW UP IN THE NEXT FEW WEEKS. I AM LOOKING FOR LONG LASTING RELIEF FOR THE PATIENT WITH THIS INTERVENTION. INSTRUCTIONS WERE GIVEN, QUESTIONS WERE ANSWERED, AND THE PATIENT EXPRESSED UNDERSTANDING AND AGREES WITH THE PLAN. THE PATIENT IS AWARE TO STAY HOME FOR THE NEXT WEEK, IF POSSIBLE, DUE TO COVID-19. I, VALENTINE TRONCOSO, DOCUMENTED THE ABOVE INFORMATION ACTING A SCRIBE FOR DR. LOBO. I HAVE REVIEWED THE ABOVE DOCUMENT, WRITTEN BY VALENTINE TRONCOSO, EXCEPTIONAL STUDENT EDUCATION TEACHER, AND I VERIFY THAT IT IS ACCURATE PROCEDURE CODES 33546 LUMBAR/SACRAL W/ IMAGING DISPOSITION & COMMUNICATION FOLLOW UP F/UP WITH [employer] (REASON: POST LESI L5-S1) ELECTRONICALLY SIGNED BY NIA LOBO MD, MD ON 12/20/2019 AT 12:28 PM EDT DISCLAIMER : THIS IS A VISIT SUMMARY EXTRACTED FROM THE [employer] CHART. IT IS NOT A COPY OF THE [employer] PROGRESS NOTE. [facility] [place]
== END ==
LOC: M PAIN 12:15
PROVIDERS: ATTEND Anesthesiology
DX: M51.17 Intervertebral disc disorders with radiculopathy, lumbosacral region (principal)
CPT/HCPCS: 62323; J1030; Q9967

== ENCOUNTER → 2020-01-06 | Outpatient (CLI) | payer MEDICARE ==
[~2020-01-06] MED LIST changes: -ISOVUE-M 300 61% 15ML VIAL As Ordered ONE; -LIDOCAINE 1% SDV 30ML VIAL As Ordered ONE; -diazePAM 2 MG TAB As Ordered ONE; -methylPREDNISolone SUSP 40MG/ML 1ML VIAL (DEPO MEDROL) As Ordered ONE; -oxyCODONE 5MG TAB As Ordered ONE
== END ==
LOC: M PAIN 09:00
PROVIDERS: ATTEND Family Medicine
DX: M51.17 Intervertebral disc disorders with radiculopathy, lumbosacral region (principal)

== ENCOUNTER → 2021-02-25 | Outpatient (REF) | payer MEDICARE ==
[~2021-02-25] MED LIST changes: +ESCI10TA16 PO; -ESCI10TA2 PO; +GABA-283 PO; -GABA-845 PO; +MONT10TA10 PO; -MONT10TA4 PO
[2021-02-25 20:21] LABS: APPEARANCE, URINE CLEAR (CLEAR); BILIRUBIN, URINE AUTO NEGATIVE (NEGATIVE); BLOOD, URINE BLOOD NEGATIVE (NEGATIVE); COLOR, URINE YELLOW (YELLOW); GLUCOSE, URINE (UA) AUTO 2+ mg/dL (NEGATIVE); KETONE, URINE AUTO TRACE mg/dL (NEGATIVE); LEUKOCYTE ESTERASE, URINE AUTO NEGATIVE (NEGATIVE); NITRITE, URINE AUTO NEGATIVE (NEGATIVE); PROTEIN, URINE AUTO NEGATIVE (NEGATIVE); SPECIFIC GRAVITY URINE AUTO 1.014 (1.002-1.035); UROBILINOGEN, URINE AUTO 0.2 mg/dL (0.0-2.0)
[2021-02-25 20:31] LABS: BACTERIA, URINE AUTO NEGATIVE (NEGATIVE); CALCIUM OXALATE CRYSTALS SMALL; MUCUS, URINE SMALL (NEGATIVE); RBC, URINE AUTO 0 /HPF (0-3); SQUAMOUS EPITHELIAL CELL UR AU 0 /HPF (0-6); WBC, URINE AUTO 0 /HPF (0-3)
== END ==
LOC: M SMT 17:20
PROVIDERS: ATTEND Urology
DX: N48.89 Other specified disorders of penis (principal)
CPT/HCPCS: 81001; 87086; G0463

== ENCOUNTER → 2021-04-15 | Outpatient (CLI) | payer MEDICARE ==
[~2021-04-15] MED LIST changes: +CYMB60CA4 PO
--- NOTE | 2021-04-15 13:53 | REP ---
INDICATION: LUNG CANCER SCREENING. COMPARISON: Chest x-ray 06/30/2015 TECHNIQUE: Standard low-dose CT lung screening protocol. FINDINGS: The lung gomez are well inflated. There is no is significant pleural thickening, calcified pleural plaque, pleural based mass or effusion. I see no parenchymal mass or nodule. The heart is not grossly enlarged. The aorta has some calcifications without gross aneurysm. No abnormal widening of the mediastinum noted. Some degenerative changes are scattered throughout the spine and involving the AC joints and glenohumeral joints. No destructive lesion or fracture. IMPRESSION: 1. Lung RADS category 1-, no evidence of malignancy. No nodules or definitely benign nodules on this examination. Patients with this category of scan have less than 1% chance of malignancy at the time of the examination. 2. For patients at high risk of malignancy, recommend annual screening low-dose CT in 12 months. <Electronically signed by Elías Capps > 04/15/21 [id number]
== END ==
LOC: M RAD 13:24
PROVIDERS: ATTEND Internal Medicine
DX: Z12.2 Encounter for screening for malignant neoplasm of respiratory organs (principal); F17.210 Nicotine dependence, cigarettes, uncomplicated

== ENCOUNTER → 2021-07-15 | Outpatient (CLI) | payer MEDICARE ==
[~2021-07-15] MED LIST changes: -MONT10TA10 PO; +MONT10TA97 PO
== END ==
LOC: M PAIN 14:00
PROVIDERS: ATTEND Nurse Practitioner Family
DX: M51.17 Intervertebral disc disorders with radiculopathy, lumbosacral region (principal); G89.29 Other chronic pain; E11.9 Type 2 diabetes mellitus without complications; F17.210 Nicotine dependence, cigarettes, uncomplicated; Z79.84 Long term (current) use of oral hypoglycemic drugs; Z79.899 Other long term (current) drug therapy
CPT/HCPCS: 72114; G0463

== ENCOUNTER → 2021-07-15 | Outpatient (CLI) | payer MEDICARE | LOC: M RAD 15:22 | PROVIDERS: ATTEND Anesthesiology | DX: M51.17 Intervertebral disc disorders with radiculopathy, lumbosacral region (principal) ==

== ENCOUNTER → 2021-08-05 | Outpatient (CLI) | payer MEDICARE | LOC: M LABSMTC 11:05 | PROVIDERS: ATTEND Anesthesiology | DX: Z01.812 Encounter for preprocedural laboratory examination (principal); Z20.822 Contact with and (suspected) exposure to COVID-19 ==

== ENCOUNTER → 2021-08-05 | Outpatient (CLI) | payer MEDICARE | LOC: M PAIN 11:45 | PROVIDERS: ATTEND Anesthesiology | DX: M51.16 Intervertebral disc disorders with radiculopathy, lumbar region (principal); G89.29 Other chronic pain; E11.40 Type 2 diabetes mellitus with diabetic neuropathy, unspecified; K21.9 Gastro-esophageal reflux disease without esophagitis; F17.210 Nicotine dependence, cigarettes, uncomplicated; Z86.59 Personal history of other mental and behavioral disorders; Z88.1 Allergy status to other antibiotic agents; Z88.2 Allergy status to sulfonamides; Z88.8 Allergy status to other drugs, medicaments and biological substances; Z91.018 Allergy to other foods; Z91.09 Other allergy status, other than to drugs and biological substances; Z79.84 Long term (current) use of oral hypoglycemic drugs; Z79.899 Other long term (current) drug therapy | CPT/HCPCS: G0463; U0003 ==

== ENCOUNTER → 2021-09-16 | Outpatient (CLI) | payer MEDICARE | LOC: M LABSMTC 10:34 | PROVIDERS: ATTEND Anesthesiology | DX: Z01.818 Encounter for other preprocedural examination (principal); Z20.822 Contact with and (suspected) exposure to COVID-19 ==

== ENCOUNTER → 2021-10-08 | Outpatient (CLI) | payer MEDICARE | LOC: M LABSMTC 10:17 | PROVIDERS: ATTEND Anesthesiology | DX: Z01.812 Encounter for preprocedural laboratory examination (principal); Z20.822 Contact with and (suspected) exposure to COVID-19 ==

== ENCOUNTER → 2021-10-12 | Outpatient (CLI) | payer MEDICARE ==
[~2021-10-12] MED LIST changes: +CLON0.5T17 PO; +ISOVUE-M 300 61% 15ML VIAL As Ordered ONE; +LIDOCAINE 1% SDV 30ML VIAL As Ordered ONE; +TIZA2CAP PO; +diazePAM 2 MG TAB As Ordered ONE; +methylPREDNISolone SUSP 40MG/ML 1ML VIAL (DEPO MEDROL) As Ordered ONE; +oxyCODONE 5MG TAB As Ordered ONE
[2021-10-12 14:24] VITALS: BP 114/68
== END ==
LOC: M IRPRO 12:53
PROVIDERS: ATTEND Anesthesiology
DX: M51.16 Intervertebral disc disorders with radiculopathy, lumbar region (principal); G89.29 Other chronic pain; E11.9 Type 2 diabetes mellitus without complications; F17.210 Nicotine dependence, cigarettes, uncomplicated; Z88.0 Allergy status to penicillin; Z88.1 Allergy status to other antibiotic agents; Z88.2 Allergy status to sulfonamides; Z88.8 Allergy status to other drugs, medicaments and biological substances; Z91.018 Allergy to other foods; Z91.040 Latex allergy status; Z86.59 Personal history of other mental and behavioral disorders
CPT/HCPCS: 62323; J1030; Q9967

== ENCOUNTER → 2022-01-21 | Outpatient (CLI) | payer MEDICARE ==
[~2022-01-21] MED LIST changes: -ISOVUE-M 300 61% 15ML VIAL As Ordered ONE; -LIDOCAINE 1% SDV 30ML VIAL As Ordered ONE; -diazePAM 2 MG TAB As Ordered ONE; -methylPREDNISolone SUSP 40MG/ML 1ML VIAL (DEPO MEDROL) As Ordered ONE; -oxyCODONE 5MG TAB As Ordered ONE
== END ==
LOC: M PAIN 11:30
PROVIDERS: ATTEND Anesthesiology
DX: M96.1 Postlaminectomy syndrome, not elsewhere classified (principal); G89.29 Other chronic pain; E11.40 Type 2 diabetes mellitus with diabetic neuropathy, unspecified; K21.9 Gastro-esophageal reflux disease without esophagitis; M79.10 Myalgia, unspecified site; M48.00 Spinal stenosis, site unspecified; F17.210 Nicotine dependence, cigarettes, uncomplicated; Z86.59 Personal history of other mental and behavioral disorders; Z88.1 Allergy status to other antibiotic agents; Z88.2 Allergy status to sulfonamides; Z88.8 Allergy status to other drugs, medicaments and biological substances; Z91.018 Allergy to other foods; Z91.040 Latex allergy status; Z79.84 Long term (current) use of oral hypoglycemic drugs; Z79.899 Other long term (current) drug therapy

== ENCOUNTER → 2022-01-25 | Outpatient (REF) | payer MEDICARE ==
[2022-01-25 18:04] LABS: TOTAL PROTEIN 7.3 GM/DL (6.4-8.2)
== END ==
LOC: M LAB REF 16:41
PROVIDERS: ATTEND Internal Medicine
DX: G60.9 Hereditary and idiopathic neuropathy, unspecified (principal)

== ENCOUNTER → 2022-02-12 | Outpatient (CLI) | payer MEDICARE | LOC: M RAD 08:17 | PROVIDERS: ATTEND Internal Medicine | DX: R29.810 Facial weakness (principal); M79.621 Pain in right upper arm; M50.123 Cervical disc disorder at C6-C7 level with radiculopathy; M50.122 Cervical disc disorder at C5-C6 level with radiculopathy; M50.11 Cervical disc disorder with radiculopathy, high cervical region; M25.78 Osteophyte, vertebrae; M16.0 Bilateral primary osteoarthritis of hip; M76.891 Other specified enthesopathies of right lower limb, excluding foot; R93.0 Abnormal findings on diagnostic imaging of skull and head, not elsewhere classified ==

== ENCOUNTER → 2022-03-02 | Outpatient (CLI) | payer MEDICARE | LOC: M SOG 08:03 | PROVIDERS: ATTEND Orthopaedic Surgery | DX: M25.551 Pain in right hip (principal) ==

== ENCOUNTER → 2022-03-09 | Outpatient (CLI) | payer MEDICARE | LOC: M PAIN 15:45 | PROVIDERS: ATTEND Anesthesiology | DX: M16.11 Unilateral primary osteoarthritis, right hip (principal); M71.9 Bursopathy, unspecified; G89.29 Other chronic pain; E11.40 Type 2 diabetes mellitus with diabetic neuropathy, unspecified; K21.9 Gastro-esophageal reflux disease without esophagitis; I10 Essential (primary) hypertension; M79.10 Myalgia, unspecified site; M48.00 Spinal stenosis, site unspecified; F17.210 Nicotine dependence, cigarettes, uncomplicated; Z86.59 Personal history of other mental and behavioral disorders; Z88.1 Allergy status to other antibiotic agents; Z88.2 Allergy status to sulfonamides; Z88.8 Allergy status to other drugs, medicaments and biological substances; Z91.018 Allergy to other foods; Z91.040 Latex allergy status; Z79.84 Long term (current) use of oral hypoglycemic drugs; Z79.899 Other long term (current) drug therapy | CPT/HCPCS: 76000; G0463 ==

== ENCOUNTER → 2022-03-24 | Outpatient (CLI) | payer MEDICARE | LOC: M LABSMTC 11:31 | PROVIDERS: ATTEND Anesthesiology | DX: Z01.812 Encounter for preprocedural laboratory examination (principal); Z11.52 Encounter for screening for COVID-19 ==

== ENCOUNTER → 2022-03-29 | Outpatient (CLI) | payer MEDICARE ==
[~2022-03-29] MED LIST changes: +BUPIVACAINE HCL 0.25% 30ML VIAL As Ordered ONE; +ISOVUE-M 300 61% 15ML VIAL As Ordered ONE; +LIDOCAINE 1% SDV 30ML VIAL As Ordered ONE; +TRIAMCINOLONE ACETONIDE SUSP 40 MG/ML VIAL (J3301) As Ordered ONE; +diazePAM 2 MG TAB As Ordered ONE; +oxyCODONE 5MG TAB As Ordered ONE
== END ==
LOC: M PAIN 14:30
PROVIDERS: ATTEND Anesthesiology
DX: M71.9 Bursopathy, unspecified (principal); E11.40 Type 2 diabetes mellitus with diabetic neuropathy, unspecified; K21.9 Gastro-esophageal reflux disease without esophagitis; I10 Essential (primary) hypertension; M79.10 Myalgia, unspecified site; M48.00 Spinal stenosis, site unspecified; F17.210 Nicotine dependence, cigarettes, uncomplicated; Z86.59 Personal history of other mental and behavioral disorders; Z88.1 Allergy status to other antibiotic agents; Z88.2 Allergy status to sulfonamides; Z88.8 Allergy status to other drugs, medicaments and biological substances; Z91.018 Allergy to other foods; Z91.040 Latex allergy status; Z79.84 Long term (current) use of oral hypoglycemic drugs; Z79.899 Other long term (current) drug therapy
CPT/HCPCS: 20610; 77002; J3301; Q9967

== ENCOUNTER → 2022-05-04 | Outpatient (CLI) | payer MEDICARE ==
[~2022-05-04] MED LIST changes: -BUPIVACAINE HCL 0.25% 30ML VIAL As Ordered ONE; -ISOVUE-M 300 61% 15ML VIAL As Ordered ONE; -LIDOCAINE 1% SDV 30ML VIAL As Ordered ONE; -TRIAMCINOLONE ACETONIDE SUSP 40 MG/ML VIAL (J3301) As Ordered ONE; -diazePAM 2 MG TAB As Ordered ONE; -oxyCODONE 5MG TAB As Ordered ONE
== END ==
LOC: M PAIN 15:15
PROVIDERS: ATTEND Anesthesiology
DX: M71.9 Bursopathy, unspecified (principal); G89.29 Other chronic pain; E11.40 Type 2 diabetes mellitus with diabetic neuropathy, unspecified; K21.9 Gastro-esophageal reflux disease without esophagitis; M79.10 Myalgia, unspecified site; F17.210 Nicotine dependence, cigarettes, uncomplicated; Z86.59 Personal history of other mental and behavioral disorders; Z88.1 Allergy status to other antibiotic agents; Z88.2 Allergy status to sulfonamides; Z88.8 Allergy status to other drugs, medicaments and biological substances; Z91.018 Allergy to other foods; Z91.040 Latex allergy status; Z79.84 Long term (current) use of oral hypoglycemic drugs; Z79.899 Other long term (current) drug therapy

== ENCOUNTER → 2022-05-31 | Outpatient (CLI) | payer MEDICARE | LOC: M PAIN 14:45 | PROVIDERS: ATTEND Nurse Practitioner Family | DX: M51.16 Intervertebral disc disorders with radiculopathy, lumbar region (principal); G89.29 Other chronic pain; E11.40 Type 2 diabetes mellitus with diabetic neuropathy, unspecified; M79.10 Myalgia, unspecified site; M48.00 Spinal stenosis, site unspecified; F17.210 Nicotine dependence, cigarettes, uncomplicated; Z86.59 Personal history of other mental and behavioral disorders; Z88.1 Allergy status to other antibiotic agents; Z88.2 Allergy status to sulfonamides; Z88.8 Allergy status to other drugs, medicaments and biological substances; Z91.018 Allergy to other foods; Z91.040 Latex allergy status; Z79.84 Long term (current) use of oral hypoglycemic drugs; Z79.899 Other long term (current) drug therapy ==

== ENCOUNTER → 2022-07-26 | Outpatient (CLI) | payer MEDICARE | LOC: M PAIN 14:45 | PROVIDERS: ATTEND Nurse Practitioner Family | DX: M71.9 Bursopathy, unspecified (principal); G89.29 Other chronic pain; E11.40 Type 2 diabetes mellitus with diabetic neuropathy, unspecified; I10 Essential (primary) hypertension; M79.10 Myalgia, unspecified site; F17.210 Nicotine dependence, cigarettes, uncomplicated; Z86.59 Personal history of other mental and behavioral disorders; Z88.1 Allergy status to other antibiotic agents; Z88.2 Allergy status to sulfonamides; Z88.8 Allergy status to other drugs, medicaments and biological substances; Z91.018 Allergy to other foods; Z79.84 Long term (current) use of oral hypoglycemic drugs; Z79.899 Other long term (current) drug therapy ==

== ENCOUNTER → 2022-08-05 | Outpatient (CLI) | payer MEDICARE | LOC: M SOG 16:04 | PROVIDERS: ATTEND Orthopaedic Surgery | DX: M25.511 Pain in right shoulder (principal); M19.011 Primary osteoarthritis, right shoulder; M25.711 Osteophyte, right shoulder ==

== ENCOUNTER → 2022-09-05 | Outpatient (CLI) | payer MEDICARE ==
[~2022-09-05] MED LIST changes: +BUPIVACAINE HCL 0.25% 30ML VIAL As Ordered ONE; +ISOVUE-M 300 61% 15ML VIAL As Ordered ONE; +LIDOCAINE 1% SDV 30ML VIAL As Ordered ONE; +TRIAMCINOLONE ACETONIDE SUSP 40MG/ML 1ML VIAL As Ordered ONE; +diazePAM 2 MG TAB As Ordered ONE; +oxyCODONE 5MG TAB As Ordered ONE
== END ==
LOC: M PAIN 10:30
PROVIDERS: ATTEND Anesthesiology
DX: M71.9 Bursopathy, unspecified (principal); E11.40 Type 2 diabetes mellitus with diabetic neuropathy, unspecified; I10 Essential (primary) hypertension; M79.10 Myalgia, unspecified site; M48.00 Spinal stenosis, site unspecified; F17.210 Nicotine dependence, cigarettes, uncomplicated; Z86.59 Personal history of other mental and behavioral disorders; Z88.1 Allergy status to other antibiotic agents; Z88.2 Allergy status to sulfonamides; Z88.8 Allergy status to other drugs, medicaments and biological substances; Z91.040 Latex allergy status; Z79.84 Long term (current) use of oral hypoglycemic drugs; Z79.899 Other long term (current) drug therapy
CPT/HCPCS: 20610; 77002; J3301; Q9967

== ENCOUNTER → 2022-09-15 | Outpatient (CLI) | payer MEDICARE ==
[~2022-09-15] MED LIST changes: -BUPIVACAINE HCL 0.25% 30ML VIAL As Ordered ONE; -ISOVUE-M 300 61% 15ML VIAL As Ordered ONE; -LIDOCAINE 1% SDV 30ML VIAL As Ordered ONE; -TRIAMCINOLONE ACETONIDE SUSP 40MG/ML 1ML VIAL As Ordered ONE; -diazePAM 2 MG TAB As Ordered ONE; -oxyCODONE 5MG TAB As Ordered ONE
== END ==
LOC: M SOG 08:57
PROVIDERS: ATTEND Orthopaedic Surgery
DX: M54.2 Cervicalgia (principal); M47.812 Spondylosis without myelopathy or radiculopathy, cervical region

== ENCOUNTER → 2022-11-04 | Outpatient (CLI) | payer MEDICARE | LOC: M PAIN 10:30 | PROVIDERS: ATTEND Nurse Practitioner Family | DX: M54.2 Cervicalgia (principal); G89.29 Other chronic pain; E11.40 Type 2 diabetes mellitus with diabetic neuropathy, unspecified; I10 Essential (primary) hypertension; M79.10 Myalgia, unspecified site; M48.00 Spinal stenosis, site unspecified; F17.210 Nicotine dependence, cigarettes, uncomplicated; Z86.59 Personal history of other mental and behavioral disorders; Z88.1 Allergy status to other antibiotic agents; Z88.2 Allergy status to sulfonamides; Z88.8 Allergy status to other drugs, medicaments and biological substances; Z91.018 Allergy to other foods; Z79.84 Long term (current) use of oral hypoglycemic drugs; Z79.899 Other long term (current) drug therapy ==

== ENCOUNTER → 2022-11-14 | Outpatient (CLI) | payer MEDICARE | LOC: M PAIN 11:00 | PROVIDERS: ATTEND Nurse Practitioner Family | DX: M50.10 Cervical disc disorder with radiculopathy, unspecified cervical region (principal); K21.9 Gastro-esophageal reflux disease without esophagitis; E11.40 Type 2 diabetes mellitus with diabetic neuropathy, unspecified; F32.A Depression, unspecified; J30.2 Other seasonal allergic rhinitis; E78.00 Pure hypercholesterolemia, unspecified; M79.10 Myalgia, unspecified site; M48.00 Spinal stenosis, site unspecified; F17.210 Nicotine dependence, cigarettes, uncomplicated; Z79.84 Long term (current) use of oral hypoglycemic drugs; Z79.899 Other long term (current) drug therapy; Z88.2 Allergy status to sulfonamides; Z88.8 Allergy status to other drugs, medicaments and biological substances; Z91.018 Allergy to other foods; Z88.1 Allergy status to other antibiotic agents; Z91.040 Latex allergy status ==

== ENCOUNTER → 2023-02-06 | Outpatient (CLI) | payer MEDICARE ==
[~2023-02-06] MED LIST changes: -GABA-283 PO; +GABA-284 PO
== END ==
LOC: M PAIN 15:30
PROVIDERS: ATTEND Nurse Practitioner Family
DX: M51.16 Intervertebral disc disorders with radiculopathy, lumbar region (principal); M96.1 Postlaminectomy syndrome, not elsewhere classified; G89.29 Other chronic pain; E11.40 Type 2 diabetes mellitus with diabetic neuropathy, unspecified; I10 Essential (primary) hypertension; M79.10 Myalgia, unspecified site; F17.210 Nicotine dependence, cigarettes, uncomplicated; Z86.59 Personal history of other mental and behavioral disorders; Z88.1 Allergy status to other antibiotic agents; Z88.2 Allergy status to sulfonamides; Z88.8 Allergy status to other drugs, medicaments and biological substances; Z91.018 Allergy to other foods; Z91.040 Latex allergy status; Z79.84 Long term (current) use of oral hypoglycemic drugs; Z79.899 Other long term (current) drug therapy

== ENCOUNTER → 2023-02-20 | Outpatient (CLI) | payer MEDICARE | LOC: M RAD 13:39 | PROVIDERS: ATTEND Internal Medicine | DX: Z12.2 Encounter for screening for malignant neoplasm of respiratory organs (principal); F17.210 Nicotine dependence, cigarettes, uncomplicated ==

== ENCOUNTER 2023-12-25 12:36 | Day surgery (SDC) | payer MEDICARE ==
[~2023-12-25] VITALS: Ht 160 cm; Wt 62.3 kg
[~2023-12-25 12:36] MED LIST changes: +BUPR-597 PO; -BUPR300T92 PO; +GLIP5TAB17; -GLIP5TAB8
[2023-12-25] MEDS: NS 1,000 ML IV ONE (12:49)
[2023-12-25] MEDS ORDERED: propofoL 200 MG/20 ML VIAL As Ordered ONE (13:58)
[2023-12-25] MEDS ORDERED: LIDOCAINE 2% 100MG/5ML SDV (FOR ANES.) As Ordered ONE (13:58)
[2023-12-25 14:11] VITALS: TEMP 97.3
[2023-12-25 14:30] VITALS: BP 113/75; O2SAT 97
== END 2023-12-25 14:36 | disposition home or self-care (01) ==
LOC: M OPP 12:36
PROVIDERS: ATTEND Internal Medicine Gastroenterology
DX: R93.3 Abnormal findings on diagnostic imaging of other parts of digestive tract (principal); K64.0 First degree hemorrhoids; E11.9 Type 2 diabetes mellitus without complications; F17.200 Nicotine dependence, unspecified, uncomplicated; Z98.0 Intestinal bypass and anastomosis status; Z79.02 Long term (current) use of antithrombotics/antiplatelets; Z79.84 Long term (current) use of oral hypoglycemic drugs; Z88.0 Allergy status to penicillin; Z88.1 Allergy status to other antibiotic agents; Z88.2 Allergy status to sulfonamides; Z91.018 Allergy to other foods; Z91.040 Latex allergy status

== ENCOUNTER → 2024-03-11 | Outpatient (CLI) | payer MEDICARE | LOC: M RAD 10:29 | PROVIDERS: ATTEND Internal Medicine | DX: Z12.2 Encounter for screening for malignant neoplasm of respiratory organs (principal); F17.210 Nicotine dependence, cigarettes, uncomplicated; J84.10 Pulmonary fibrosis, unspecified; I25.10 Atherosclerotic heart disease of native coronary artery without angina pectoris; I70.0 Atherosclerosis of aorta ==

== ENCOUNTER → 2024-06-14 | Outpatient (CLI) | payer MEDICARE | LOC: M PLARAD 08:12 | PROVIDERS: ATTEND Internal Medicine | DX: H91.92 Unspecified hearing loss, left ear (principal); R51.9 Headache, unspecified; I67.82 Cerebral ischemia ==

== ENCOUNTER → 2025-03-12 | Outpatient (CLI) | payer MEDICARE ==
[~2025-03-12] MED LIST changes: -BUPR-597 PO; +BUPR-766 PO
== END ==
LOC: M RAD 15:34
PROVIDERS: ATTEND Internal Medicine
DX: F17.211 Nicotine dependence, cigarettes, in remission (principal)